=== PATIENT | male | born 1955 | race Caucasian/White ===

== ENCOUNTER 2021-12-30 07:28 | Day surgery (SDC) | payer OTHER ==
[2021-12-29 09:08] LABS: Hematocrit 22.8 % (39.6-49.0)
[2021-12-29 09:49] LABS: Ferritin 9.6 ng/mL (26-388)
[2021-12-30] MEDS ORDERED: ACETAMINOPHEN 325 MG TABLET ONE (08:02)
[2021-12-30] MEDS ORDERED: NA CHLORIDE 0.9% 500 ML ONE (08:25)
[2021-12-30 09:00] VITALS: TEMP 98.1; BMI 21.8
[2021-12-30] MEDS ORDERED: FUROSEMIDE 40 MG/4 ML VIAL ONE (10:17)
[2021-12-30 14:33] VITALS: BP 171/85; O2SAT 97
[2021-12-30 14:54] LABS: Hematocrit 27.6 % (39.6-49.0)
== END 2021-12-30 14:23 | disposition home or self-care (01) ==
LOC: DS 07:28
PROVIDERS: ATTEND Family Medicine
DX: D50.9 Iron deficiency anemia, unspecified (principal); Z88.6 Allergy status to analgesic agent
CPT/HCPCS: 36415 ×2; 86900; 86850; 86901; 85018 ×2; 85014 ×2; 82728; 82607; 83540; 84466; 36430; J1940; P9016 ×2; J7050

== ENCOUNTER 2022-11-30 21:10 | Inpatient (IN) | payer OTHER ==
--- OUTSIDE RECORDS SUMMARY | 2022-11-30 21:15 | XMS REPORT | Continuity of Care Document ---
:1955 Author Organization [facility] t Address [address] [place] [address] Care Team Providers Name Role Phone Adeel Samaniego MD Primary Care Physician ANNA VILLANUEVA Attending Clinician Unavailable LAB90 Attending Clinician Unavailable Anna Villanueva DO Attending Clinician MD DEIDRE Attending Clinician Unavailable PADMINI ROMAN MEDICAL Attending Clinician Unavailabl e Radiology Attending Clinician Unavailable RADIOLOGY Attending Clinician Unavailable Payers Payer Name Policy Type Policy Number Effective Date Expiration Date S garrick [employer] 16 [id number] 2021 00:00:00 HMO-POS Problems Condition Condition Condition Status Onset Resolution Last Treating Co mments Source Name Details Category Date Date Treatment Clinician Date 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 Se ybold mirza blue 00:00: - malnutriti malnutriti 00 Ex terna on on l 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 3-22 Se ybold 00:00: - 00 Externa l Gastroesop Gastroesop Disease Active Carmen cadet hageal hageal 3-16 Seybold reflux reflux 00:00: - disease disease 00 Externa without without l esophagiti esophagiti s s Well adult Well adult Disease Active Carmen cadet exam exam 3-14 Seybold 00:00: 00 History of History of Disease Active Carmen cadet CVA CVA 3-14 Seybold (cerebrova (cerebrova 00:00: - scular scular 00 Externa accident) accident) l Edema, Edema, Disease Active Padmini lower lower 3-14 Seybold extremity extremity 00:00: - 00 Externa l Simple Simple Disease Active Padmini chronic chronic 3-14 Seybold bronchitis bronchitis 00:00: - 00 Externa l Hypertensi Hypertensi Disease Active K elsey on on -20 Seybold 00:00: - 00 Externa l Hypothyroi Hypothyroi Disease Active K elsey dism dism 1-20 Seybold 00:00: - 00 Externa l Depression Depression Disease Active K elsey 1-20 Seybold 00:00: - 00 Externa l Iron (Fe) Iron (Fe) Disease Active Lb sey deficiency deficiency 5-19 Se ybold anemia anemia 00:00: - 00 Externa l Allergies, Adverse Reactions, Alerts Allergy Allergy Status Severity Reaction(s) Onset Inactive Treating Comm ents Source Name Type Date Date Clinician Codeine Propensi Active Anxiety Padmini ty to 5-19 Seybold adverse 00:00: - reaction 00 Externa s l Codeine Propensi Active Anxiety Padmini ty to 5-19 Seybold adverse 00:00: reaction 00 s NO KNOWN Drug Active Univers ALLERGIE Class ity [facility] Social History Social Habit Start Date Stop Date Quantity Comments Source Exposure to Not sure [facility]-CoV-2 [facility] (event) [facility] History of Cigarette Smoker Padmini emmanuelbomatt - tobacco use External Sex Ass[birth year] At [birth year] M Padmini Sharif ybold - 00:00:00 00:00:00 External Smoking Status Start Date Stop Date Source Unknown if ever smoked [facility] Smokes tobacco daily 2021-03-02 00:00:00 Padmini Naveed - External Medications Ordered Filled Start Stop Current Ordering Indication Dosage Frequency Signature Comments Components Source Medication Medication Date Date Medication? Clinician (SIG) Name Name Allopurinol 2022- No 300mg Take 300 Padmini 300 MG oral 2-15 02-15 mg by Seybol d Tablet 15:34: 00:00 mouth - 17 :00 daily Externa l ASPIRIN 81 2023-0 Yes 81mg Take 81 mg K elsey OR 2-15 by mouth Seybold 15:21: daily - 31 Externa l Fluticasone 0 Yes [id number] 1{puff} Inhale 1 Padmini -Salmeterol 2-15 puff into Miles phelps (Advair 00:00: the lungs - Diskus) 00 2 times Externa 250-50 daily l MCG/ACT inhalation AEROSOL POWDER, BREATH ACTIVATED Diltiazem Yes [id number] TAKE 1 Ke lsey HCl Coated 2-06 CAPSULE BY Sey bold Beads 360 00:00: MOUTH - MG oral 00 EVERY DAY Externa Capsule 24 l Hour Sustained Release Famotidine 2021-10- No [id number] TAKE 1 Padmini (PEPCID) 20 2-09 02-15 TABLET BY Se ybold MG oral 00:00: 00:00 MOUTH - tablet 00 :00 EVERY Externa MORNING l AND 1 TABLET BY MOUTH EVERY EVENING Levothyroxi 2021-0 Yes [id number] 50ug TAKE 1 Padmini ne Sodium 9-09 TABLET (50 Seyb old 50 MCG oral 00:00: MCG TOTAL) - Tablet 00 BY MOUTH Externa IN THE l MORNING. Sertraline Yes [id number] 50mg TAKE 1 K elsey HCl 50 MG 9-09 TABLET (50 Seyb old oral Tablet 00:00: MG TOTAL) - 00 BY MOUTH Externa IN THE l MORNING. Lisinopril 0 Yes [id number] 20mg TAKE 1 K elsey 20 MG oral 9-09 TABLET (20 Sey bold Tablet 00:00: MG TOTAL) - 00 BY MOUTH Externa IN THE l MORNING. Clopidogrel 0 Yes 75mg TAKE 1 Jovita ey Bisulfate 9-09 TABLET (75 Seyb old 75 MG oral 00:00: MG TOTAL) - Tablet 00 BY MOUTH Externa IN THE l MORNING. Esomeprazol 0 Yes [id number] TAKE 1 Padmini e Magnesium 8-03 CAPSULE BY Se ybold 20 MG oral 00:00: MOUTH - Delayed 00 EVERY DAY Externa Release l Capsule Furosemide 0 2022- No [id number] 20mg QD TAKE 1 Padmini 20 MG oral 708 02-15 TABLET (20 Se ybold Tablet 00:00: 00:00 MG TOTAL) - 00 :00 BY MOUTH Externa DAILY l NEEDED (EDEMA TO THE LOWER EXTREMITIE S) Allopurinol Yes 300mg Take 300 K elsey 300 MG oral 5-23 mg by Seybold Tablet 08:13: mouth 22 daily ASPIRIN 81 0 Yes 81mg Take 81 mg K elsey OR 5-23 by mouth Seybold 08:13: daily 22 Furosemide Yes [id number] 20mg QD TAKE 1 Padmini 20 MG oral 5-16 TABLET (20 Sey bold Tablet 00:00: MG TOTAL) 00 BY MOUTH DAILY NEEDED (EDEMA TO THE LOWER EXTREMITIE S) Famotidine 2021- No Padmini (PEPCID) 20 5-15 05-23 Seybold MG oral 00:00: 00:00 tablet 00 :00 Diltiazem Yes [id number] 360mg Take 1 K elsey HCl Coated 5-04 capsule Seybol d Beads 360 00:00: (360 mg MG oral 00 total) by Capsule 24 mouth Hour daily Sustained Release Allopurinol Yes 300mg Take 300 K elsey 300 MG oral 4-25 mg by Seybold Tablet 08:14: mouth 30 daily ASPIRIN 81 Yes 81mg Take 81 mg K elsey OR 4-25 by mouth Seybold 08:14: daily 30 Esomeprazol Yes [id number] 1{each} Take 1 Padmini e Magnesium 4-25 each by Seybo ld (NexIUM 00:00: mouth 24HR) 20 MG 00 daily oral Tablet Delayed Response Esomeprazol Yes [id number] 1{each} Take 1 Padmini e Magnesium 4-25 each by Seybo ld (NexIUM 00:00: mouth 24HR) 20 MG 00 daily oral Tablet Delayed Response Esomeprazol 2021-0 2021- No [id number] 1{each} Take 1 Padmini e Magnesium 4-25 04-25 each by Seyb old (NexIUM 00:00: 00:00 mouth 24HR) 20 MG 00 :00 daily oral Tablet Delayed Response Iron, Yes [id number] 1{each} Take 1 Ke lsey Ferrous 3-16 each by Seybold Sulfate, 00:00: mouth 2 325 (65 Fe) 00 times MG oral daily Tablet Iron, Yes [id number] 1{each} Take 1 Ke lsey Ferrous 3-16 each by Seybold Sulfate, 00:00: mouth 2 325 (65 Fe) 00 times MG oral daily Tablet Iron, 2022- No [id number] 1{each} Take 1 K elsey Ferrous 3-16 02-15 each by Seybold Sulfate, 00:00: 00:00 mouth 2 - 325 (65 Fe) 00 :00 times Externa MG oral daily l Tablet Famotidine 2021- No [id number] 20mg Take 1 Padmini (Pepcid) 20 3-16 04-25 tablet (20 S eybold MG oral 00:00: 00:00 mg total) tablet 00 :00 by mouth in the morning and 1 tablet (20 mg total) in the evening. Allopurinol Yes 300mg Take 300 K elsey 300 MG oral 3-14 mg by Seybold Tablet 08:15: mouth 14 daily ASPIRIN 81 0 Yes 81mg Take 81 mg K elsey OR 3-14 by mouth Seybold 08:15: daily 14 Lisinopril 0 Yes [id number] 20mg Take 1 K elsey 20 MG oral 3-14 tablet (20 Sey bold Tablet 00:00: mg total) 00 by mouth in the morning. Levothyroxi Yes [id number] 50ug Take 1 Padmini ne Sodium 3-14 tablet (50 Seyb old 50 MCG oral 00:00: mcg total) Tablet 00 by mouth in the morning. Clopidogrel Yes 75mg Take 1 Jovita ey Bisulfate 3-14 tablet (75 Seyb old 75 MG oral 00:00: mg total) Tablet 00 by mouth in the morning. Sertraline 0 Yes [id number] 50mg Take 1 K elsey HCl 50 MG 3-14 tablet (50 Seyb old oral Tablet 00:00: mg total) 00 by mouth in the morning. Fluticasone Yes [id number] 1{puff} Inhale 1 Padmini -Salmeterol 3-14 puff into Sey bold (Advair 00:00: the lungs Diskus) 00 in the 250-50 morning MCG/DOSE and 1 puff inhalation in the AEROSOL evening. POWDER, BREATH ACTIVATED Lisinopril 2022-0 Yes [id number] 20mg Take 1 K elsey 20 MG oral 3-14 tablet (20 Sey bold Tablet 00:00: mg total) 00 by mouth in the morning. Levothyroxi 2022-0 Yes [id number] 50ug Take 1 Padmini ne Sodium 3-14 tablet (50 Seyb old 50 MCG oral 00:00: mcg total) Tablet 00 by mouth in the morning. Clopidogrel 2-0 Yes 75mg Take 1 Jovita ey Bisulfate 3-14 tablet (75 Seyb old 75 MG oral 00:00: mg total) Tablet 00 by mouth in the morning. Sertraline 2021-0 Yes [id number] 50mg Take 1 K elsey HCl 50 MG 3-14 tablet (50 Seyb old oral Tablet 00:00: mg total) 00 by mouth in the morning. Furosemide 2021-0 Yes [id number] 20mg QD Take 1 Padmini 20 MG oral 3-14 tablet (20 Sey bold Tablet 00:00: mg total) 00 by mouth daily as needed (edema to the lower extremitie s) Fluticasone 2021-0 Yes 1{puff} Inhale 1 Padmini -Salmeterol 3-14 puff into Sey bold (Advair 00:00: the lungs Diskus) 00 in the 250-50 morning MCG/DOSE and 1 puff inhalation in the AEROSOL evening. POWDER, BREATH ACTIVATED Lisinopril 2021-0 Yes [id number] 20mg Take 1 K elsey 20 MG oral 3-14 tablet (20 Sey bold Tablet 00:00: mg total) 00 by mouth in the morning. Levothyroxi 2022-0 Yes [id number] 50ug Take 1 Padmini ne Sodium 3-14 tablet (50 Seyb old 50 MCG oral 00:00: mcg total) Tablet 00 by mouth in the morning. Clopidogrel 2022-0 Yes 75mg Take 1 Jovita ey Bisulfate 3-14 tablet (75 Seyb old 75 MG oral 00:00: mg total) Tablet 00 by mouth in the morning. Sertraline 2022-0 Yes [id number] 50mg Take 1 K elsey HCl 50 MG 3-14 tablet (50 Seyb old oral Tablet 00:00: mg total) 00 by mouth in the morning. Furosemide 2022-0 Yes [id number] 20mg QD Take 1 Padmini 20 MG oral 3-14 tablet (20 Sey bold Tablet 00:00: mg total) 00 by mouth daily as needed (edema to the lower extremitie s) Fluticasone Yes [id number] 1{puff} Inhale 1 Padmini -Salmeterol 3-14 puff into Sey bold (Advair 00:00: the lungs Diskus) 00 in the 250-50 morning MCG/DOSE and 1 puff inhalation in the AEROSOL evening. POWDER, BREATH ACTIVATED Fluticasone 2022- No [id number] 1{puff} Inhale 1 Padmini -Salmeterol 3-14 02-15 puff into Se ybold (Advair 00:00: 00:00 the lungs - Diskus) 00 :00 in the Externa 250-50 morning l MCG/DOSE and 1 puff inhalation in the AEROSOL evening. POWDER, BREATH ACTIVATED Lisinopril 2021- No [id number] 20mg Take 1 Padmini 20 MG oral 1-20 -14 tablet (20 Se ybold Tablet 00:00: 00:00 mg total) 00 :00 by mouth daily Sertraline 2021- No [id number] 50mg Take 1 Padmini HCl 50 MG -01 01-14 tablet (50 Sey bold oral Tablet 00:00: 00:00 mg total) 00 :00 by mouth daily Levothyroxi 2021- No [id number] 50ug Take 1 Padmini ne Sodium -20 -14 tablet (50 Sey bold 50 MCG oral 00:00: 00:00 mcg total) Tablet 00 :00 by mouth daily Clopidogrel 2020-10- No TAKE ONE K elsey Bisulfate 0-14 TABLET BY Seyb old 75 MG oral 00:00: 00:00 MOUTH Tablet 00 :00 DAILY Diltiazem Yes TAKE TWO Jovita ey HCl CR 180 6-09 CAPSULES Seybo ld MG oral 00:00: BY MOUTH Capsule 24 00 DAILY Hour Sustained Release Diltiazem Yes TAKE TWO Jovita ey HCl CR 180 6-09 CAPSULES Seybo ld MG oral 00:00: BY MOUTH Capsule 24 00 DAILY Hour Sustained Release Budesonide- 2021- No 2{puff} Inhale 2 Padmini Formoterol 03-02 03-14 puffs into Se ybold Fumarate 00:00: 00:00 the lungs (Symbicort) 00 :00 2 times 160-4.5 daily MCG/ACT inhalation Aerosol Cyclobenzap 2021- No 5mg [id number] Take 1 Padmini rine HCl 5 03-02 03-14 [id number] tablet (5 Seybold MG oral 00:00: 00:00 3D mg total) Tablet 00 :00 by mouth 3 times daily as needed for muscle spasms Immunizations Ordered Immunization Filled Immunization Date Status Commen ts Source Name Name Influenza Virus 2019-11-03 Completed Padmini Se ybold Vaccine, age 6 months 00:00:00 and up Influenza Virus 2019-11-03 Completed Padmini Se ybold Vaccine, age 6 months 00:00:00 - E xternal and up Influenza Virus 2019-11-03 Completed Padmini Se ybold Vaccine, age 6 months 00:00:00 and up Influenza Virus 2019-11-03 Completed Padmini Se ybold Vaccine, age 6 months 00:00:00 and up Influenza Virus 2018-08-07 Completed Padmini Se ybold Vaccine, age 6 months 00:00:00 and up Influenza Virus 2018-08-07 Completed Padmini Se ybold Vaccine, age 6 months 00:00:00 - E xternal and up Influenza Virus 2018-08-07 Completed Padmini Se ybold Vaccine, age 6 months 00:00:00 and up Influenza Virus 2018-08-07 Completed Padmini Se ybold Vaccine, age 6 months 00:00:00 and up Influenza Virus 2017-07-10 Completed Padmini Se ybold Vaccine, age 6 months 00:00:00 and up Influenza Virus 2017-07-10 Completed Padmini Se ybold Vaccine, No Preserv, 00:00:00 age 6 months and up Influenza Virus 2017-07-10 Completed Padmini Se ybold Vaccine, age 6 months 00:00:00 - E xternal and up Influenza Virus 2017-07-10 Completed Padmini Se ybold Vaccine, No Preserv, 00:00:00 - Ex ternal age 6 months and up Influenza Virus 2017-07-10 Completed Padmini Se ybold Vaccine, age 6 months 00:00:00 and up Influenza Virus 2017-07-10 Completed Padmini Se ybold Vaccine, No Preserv, 00:00:00 age 6 months and up Influenza Virus 2017-07-10 Completed Padmini Se ybold Vaccine, age 6 months 00:00:00 and up Influenza Virus 2017-07-10 Completed Padmini Se ybold Vaccine, No Preserv, 00:00:00 age 6 months and up Influenza Virus 2016-08-14 Completed Padmini Se ybold Vaccine, age 6 months 00:00:00 and up Pneumococcal Vaccine, 2016-08-14 Completed Lb sey Seybold Polysaccharide 00:00:00 Influenza Virus 2016-08-14 Completed Padmini Se ybold Vaccine, age 6 months 00:00:00 - E xternal and up Pneumococcal Vaccine, 2016-08-14 Completed Lb sey Seybold Polysaccharide 00:00:00 - External Influenza Virus 2016-08-14 Completed Padmini Se ybold Vaccine, age 6 months 00:00:00 and up Pneumococcal Vaccine, 2016-08-14 Completed Lb sey Seybold Polysaccharide 00:00:00 Influenza Virus 2016-08-14 Completed Padmini Se ybold Vaccine, age 6 months 00:00:00 and up Pneumococcal Vaccine, 2016-08-14 Completed Lb sey Seybold Polysaccharide 00:00:00 Vital Signs Vital Name Observation Time Observation Value Comments Source Systolic blood 2022-11-29 21:20:00 112 mm[Hg] Padmini Seybold - pressure External Diastolic blood 2022-11-29 21:20:00 59 mm[Hg] Yoshi y Seybold - pressure External Heart rate 2022-11-29 21:20:00 99 /min Padmini Jose cholobomatt - External Body temperature 2022-11-29 21:20:00 36.56 Nadine Jovita emmanuel Seybold - External Respiratory rate 2022-11-29 21:20:00 14 /min Jovita emmanuel Seybold - External Body height 2022-11-29 21:20:00 198.1 cm Padmini Jose cholobomatt - External Body weight 2022-11-29 21:20:00 71.215 kg Padmini Jose cholobold - External BMI 2022-11-29 21:20:00 18.14 kg/m2 Padmini Jose cholobomatt - External Oxygen saturation in 2022-11-29 21:20:00 99 /min Padmini Seybold - Arterial blood by External Pulse oximetry Systolic blood 2022-03-06 13:08:00 170 mm[Hg] Padmini Seybold pressure Diastolic blood 2022-03-06 13:08:00 76 mm[Hg] Kelse y Seybold pressure Heart rate 2022-03-06 13:08:00 87 /min Padmini S eybold Body temperature 2022-03-06 13:08:00 36.28 Nadine Jovita ey Seybold Respiratory rate 2022-03-06 13:08:00 16 /min Jovita ey Seybold Body height 2022-03-06 13:08:00 198.1 cm Padmini S eybold Body weight 2022-03-06 13:08:00 81.647 kg Padmini S eybold BMI 2022-03-06 13:08:00 20.80 kg/m2 Padmini S eybold Oxygen saturation in 2022-03-06 13:08:00 97 /min Padmini Seybold Arterial blood by Pulse oximetry BMI 2022-02-06 13:11:00 21.41 kg/m2 Padmini S eybold Oxygen saturation in 2022-02-06 13:11:00 99 /min Padmini Seybold Arterial blood by Pulse oximetry Systolic blood 2022-02-06 13:11:00 143 mm[Hg] Padmini Seybold pressure Diastolic blood 2022-02-06 13:11:00 68 mm[Hg] Kelse y Seybold pressure Heart rate 2022-02-06 13:11:00 90 /min Padmini S eybold Body temperature 2022-02-06 13:11:00 36.44 Nadine Jovita ey Seybold Respiratory rate 2022-02-06 13:11:00 16 /min Jovita ey Seybold Body height 2022-02-06 13:11:00 198.1 cm Padmini S eybold Body weight 2022-02-06 13:11:00 84.052 kg Padmini S eybold Systolic blood 2021-12-26 13:07:00 148 mm[Hg] Padmini Seybold pressure Diastolic blood 2021-12-26 13:07:00 62 mm[Hg] Kelse y Seybold pressure Heart rate 2021-12-26 13:07:00 91 /min Padmini jessica Body temperature 2021-12-26 13:07:00 35.56 Nadine Jovita Lucio Respiratory rate 2021-12-26 13:07:00 14 /min Jovita Lucio Body height 2021-12-26 13:07:00 198.1 cm Padmini jessica Body weight 2021-12-26 13:07:00 84.823 kg Padmini jessica BMI 2021-12-26 13:07:00 21.61 kg/m2 Padmini jessica Procedures This patient has no known procedures. Encounters Start End Encounter Admission Attending Care Care Encounter Source Date/Time Date/Time Type Type Clinicians Facility Department ID 2022-12-15 2022-12-15 Outpatient PADMINI VILLANUEVA [id number] Padmini 13:45:00 13:45:00 ANNA Seybol d 2022-11-29 2022-11-29 Outpatient LAB90 PADMINI LUQUE [id number] Padmini 15:50:00 15:50:00 Seybol d 2022-11-29 2022-11-29 Outpatient PADMINI VILLANUEVA [id number] Padmini 15:15:00 15:15:00 ANNA Seybol d 2022-11-29 2022-11-29 Outpatient PADMINI LUQUE [id number] Padmini 00:00:00 00:00:00 Seybol d 2022-11-21 2022-11-21 Outpatient PADMINI VILLANUEVA [id number] Padmini 16:00:00 16:00:00 ANNA Seybol d 2022-11-17 2022-11-17 Outpatient PADMINI VILLANUEVA [id number] Padmini 00:00:00 00:00:00 ANNA Seybol d 2022-09-22 2022-09-22 Outpatient PADMINI VILLANUEVA [id number] Padmini 00:00:00 00:00:00 ANNA Seybol d 2022-03-06 2022-03-06 Outpatient LAB90 PADMINI LUQUE [id number] Padmini 08:50:00 08:50:00 Seybol d 2022-03-06 2022-03-06 Office Nehemiah Villanueva [id number] Padmini 08:00:00 08:15:00 Visit Anna Dietz [id number] Se ybold [id number] 2022-02-15 2022-02-15 Outpatient PREZAS, PADMINI LUQUE [id number] Padmini 00:00:00 00:00:00 ANNA Seybol d 2022-02-07 2022-02-07 Outpatient PREZAS, PADMINI LUQUE [id number] Padmini 00:00:00 00:00:00 ANNA Seybol d 2022-02-06 2022-02-06 Outpatient LAB90 PADMINI LUQUE [id number] Padmini 08:45:00 08:45:00 Seybol d 2022-02-06 2022-02-06 Office Nehemiah Villanueva [id number] Padmini 08:00:00 08:15:00 Visit Anna Dietz [id number] Se ybold [id number] 2022-01-26 2022-01-26 Outpatient PREZAS, PADMINI LUQUE [id number] Padmini 00:00:00 00:00:00 ANNA Seybol d 2022-01-23 2022-01-23 Outpatient PREZAS, PADMINI LUQUE [id number] Padmini 08:00:00 08:00:00 ANNA Seybol d 2022-01-11 2022-01-11 Outpatient LAB90 PADMINI LUQUE [id number] Padmini 08:15:00 08:15:00 Seybol d 2022-01-09 2022-01-09 Outpatient LAB90 PADMINI LUQUE [id number] Padmini 08:20:00 08:20:00 Seybol d 2021-12-28 2021-12-28 Outpatient PREZAPADMINI Garcia [id number] Padmini 13:30:00 13:30:00 ANNA Seybol d 2021-12-28 2021-12-28 Outpatient PREZAPADMINI Garcia [id number] Padmini 00:00:00 00:00:00 ANNA Seybol d 2021-12-28 2021-12-28 Outpatient PADMINI LUQUE [id number] Padmini 00:00:00 00:00:00 Seybol d 2021-12-28 2021-12-28 Outpatient PADMINI LUQUE [id number] Padmini 00:00:00 00:00:00 Seybol d 2021-12-28 2021-12-[id number] Padmini 00:00:00 00:00:00 MD JOSÉ Seybol d 2021-12-28 2021-12-28 Outpatient PREZAJose, PADMINI LUQUE [id number] Padmini 00:00:00 00:00:00 ANNA Seybol d 2021-12-27 2021-12-27 Outpatient PREZAPADMINI Garcia [id number] Padmini 00:00:00 00:00:00 ANNA Seybol d 2021-12-27 2021-12-27 Outpatient PREZAPADMINI Garcia [id number] Padmini 00:00:00 00:00:00 ANNA Seybol d 2021-12-26 2021-12-26 Outpatient LAB90 PADMINI LUQUE [id number] Padmini 09:30:00 09:30:00 Seybol d 2021-12-26 2021-12-26 Office Nehemiah Villanueva [id number] Padmini 08:30:00 09:15:00 [id number] [facility] [id number] 2021-12-26 2021-12-26 Outpatient PADMINI LUQUE [id number] Padmini 00:00:00 00:00:00 Seybol d 2021-11-01 2021-11-01 Outpatient GROUP, PADMINI LUQUE [id number] Padmini 00:00:00 00:00:00 PADMINI Seybol d 2021-03-21 2021-03-21 [facility] Radiology [facility] [id number] Univers 15:35:00 23:59:00 James Mccord [id number] itKirsten [id number] [facility] [id number] [facility] [address] 2021-03-21 2021-03-21 Outpatient R RADIOLOGY [facility] [id number] [facility] 00:00:00 00:00:00 ity [facility] Results This patient has no known results.
[2022-11-30] MEDS ORDERED: ONDANSETRON 4 MG/2 ML VIAL IV PRN (21:25)
[2022-11-30] MEDS ORDERED: ACETAMINOPHEN 325 MG TABLET PO PRN (21:25)
[2022-11-30] MEDS ORDERED: NA CHLORIDE 0.9% 250 ML IV SCH (22:00)
[2022-11-30 22:25] LABS: SARS-COV-2 RT PCR NEGATIVE (NEGATIVE)
--- NOTE | 2022-11-30 22:35 | P.HP ---
Certification for Inpatient Patient admitted to: Observation With expected LOS: <2 Midnights Patient will require the following post-hospital care: None Practitioner: I am a practitioner with admitting privileges, knowledge of patient current condition, hospital course, and medical plan of care. Services: Services provided to patient in accordance with Admission requirements found in Title 42 Section 412.3 of the Code of Federal Regulations Patient History Date of Service: 11/30/22 Reason for admission: Anemia History of Present Illness: 67-year-old male with history of previous CVA, hypertension, hypothyroidism, anemia was referred here by his PCP after having outpatient labs which demonstrated a low hemoglobin of 6.1. Patient is pending further work-up with GI, had EGD about a year ago which patient reports to have shown just "reflux", he has never had a colonoscopy and is being setup to have repeat EGD/colonoscopy outpatient with his PCP/GI. He denies any melena currently. He was sent in for a blood transfusion. Allergies codeine Adverse Reaction (Verified 12/30/21 09:10) Itching Home Medications: Aspirin [Aspirin EC 81 MG] 1 tab PO DAILY 12/30/21 Clopidogrel Bisulfate [Plavix] 75 mg PO DAILY 12/30/21 Esomeprazole Mag Trihydrate [Nexium] 20 mg PO DAILY 12/30/21 Fluticasone Propion/Salmeterol [Wixela 250-50 Inhub] 2 puff IH DAILY PRN MDD 4 12/30/21 Furosemide [Lasix] 20 mg PO DAILY 12/30/21 Levothyroxine Sodium [Levothyroxine] 50 mcg PO DAILY 12/30/21 Lisinopril [Zestril] 20 mg PO BID 12/30/21 Sertraline HCl 50 mg PO DAILY 12/30/21 - Past Medical/Surgical History -: CVA -: Hypertension -: GERD -: Appendectomy -: Back surgery Psychosocial/ Personal History: Patient lives at home with family - Family History Mother -: Heart disease, Liver disease Father -: Cancer - Social History Smoking Status: Current every day smoker Alcohol use: No CD- Drugs: No Caffeine use: Yes Place of Residence: Home Review of Systems 10-point ROS is otherwise unremarkable General: Weakness, Malaise Physical Examination - Physical Exam General: Alert, In no apparent distress, Oriented x3 HEENT: Atraumatic, PERRLA, Mucous membr. moist/pink, EOMI, Sclerae nonicteric Neck: Supple, 2+ carotid pulse no bruit, No LAD, Without JVD or thyroid abnormality Respiratory: Clear to auscultation bilaterally, Normal air movement Cardiovascular: Regular rate/rhythm, Normal S1 S2 Gastrointestinal: Normal bowel sounds, No tenderness Musculoskeletal: No tenderness Integumentary: No rashes Neurological: Normal speech, Normal strength at 5/5 x4 extr, Normal tone, Normal affect Assessment and Plan - Plan Assessment: Severe symptomatic iron deficiency anemia History of CVA Hypertension Hypothyroidism Plan: Severe symptomatic iron deficiency anemia Outpatient labs show hemoglobin 6.1, hematocrit 21.0, MCV 72.4, MCH 21.0, MCHC 29.0, RDW 18.4, TIBC 368, serum iron 13, iron saturation 4, ferritin 8. 1 unit PRBC ordered with 2-hour posttransfusion H/H. Patient will require further outpatient work-up with GI for EGD/colonoscopy. This is being arranged with his PCP. History of CVA Hypertension Hypothyroidism Continue home medications. DVT PPX: SCD Code status: Full Discharge Plan: Home Plan to discharge in: 24 Hours - Advance Directives Does patient have a Living Will: No Does patient have a Durable POA for Healthcare: No - Code Status/Comfort Care Code Status Assessed: Yes (Full code) Critical Care: No Time Spent Managing Pts Care (In Minutes): 55
[2022-11-30 22:59] VITALS: BMI 18.3
[2022-12-01 05:34] LABS: Hematocrit 20.4 % (39.6-49.0)
[2022-12-01 06:32] VITALS: O2SAT 97
[2022-12-01 16:03] VITALS: BP 168/77; TEMP 98.3
--- NOTE | 2022-12-01 17:15 | P.DS ---
Admission Date: 11/30/22 Discharge Date: 12/01/22 Disposition: ROUTINE DISCHARGE Discharge Condition: GOOD Reason for Admission: Anemia Brief History of Present Illness: 67-year-old male with history of previous CVA, hypertension, hypothyroidism, anemia was referred here by his PCP after having outpatient labs which demonstrated a low hemoglobin of 6.1. Patient is pending further work-up with GI, had EGD about a year ago which patient reports to have shown just "reflux", he has never had a colonoscopy and is being setup to have repeat EGD/colonoscopy outpatient with his PCP/GI. He denies any melena currently. He was sent in for a blood transfusion. Hospital Course: Problem List Severe iron deficiency anemia History of CVA Hypertension Hypothyroidism Direct admission for blood transfusion for symptomatic, severe iron deficiency anemia. Hemoglobin at PCPs office was 6.1 earlier this week with iron satu: 4, serum iron: 13. Patient received 2 units of PRBCs with improvement of symptoms and hgb up to 7.3. He was given a dose of IV iron and discharged home. He is scheduled to follow up with GI this week for EGD/C-scope. Follow up with PCP Continue iron supplementation for consideration of scheduled IV iron transfusions as an outpatient if needed Patient's PCP, Dr. Talavera was updated. Vital Signs/Physical Exam: Temp Pulse Resp BP Pulse Ox 98.3 F 66 16 168/77 H 99 12/01/22 16:00 12/01/22 16:00 12/01/22 16:00 12/01/22 16:00 12/01/22 16:00 General: Alert, In no apparent distress, Oriented x3 HEENT: EOMI, Sclerae nonicteric Neck: Supple, No LAD Respiratory: Clear to auscultation bilaterally, Normal air movement Cardiovascular: No edema, Regular rate/rhythm Gastrointestinal: Soft and benign, Non-distended, No tenderness Musculoskeletal: No contractures, No tenderness Integumentary: No rashes, No significant lesion Neurological: Normal speech, Normal affect Laboratory Data at Discharge: Hgb 7.3 g/dL (13.6-17.9) L D 12/01/22 11:52 Hct 23.0 % (39.6-49.0) L 12/01/22 11:52 Home Medications: Aspirin [Aspirin EC 81 MG] 1 tab PO DAILY 12/30/21 Clopidogrel Bisulfate [Plavix] 75 mg PO DAILY 12/30/21 Esomeprazole Mag Trihydrate [Nexium] 20 mg PO DAILY 12/30/21 Fluticasone Propion/Salmeterol [Wixela 250-50 Inhub] 2 puff IH DAILY PRN MDD 4 12/30/21 Furosemide [Lasix] 20 mg PO DAILY 12/30/21 Levothyroxine Sodium [Levothyroxine] 50 mcg PO DAILY 12/30/21 Lisinopril [Zestril] 20 mg PO BID 12/30/21 Sertraline HCl 50 mg PO DAILY 12/30/21 Physician Discharge Instructions: Direct admission for blood transfusion for symptomatic, severe iron deficiency anemia. Hemoglobin at PCPs office was 6.1 earlier this week with iron satu: 4, serum iron: 13. Patient received 2 units of PRBCs with improvement of symptoms and hgb up to 7.3. He was given a dose of IV iron and discharged home. He is scheduled to follow up with GI this week for EGD/C-scope. Follow up with PCP Continue iron supplementation for consideration of scheduled IV iron transfusions as an outpatient if needed Patient's PCP, Dr. Talavera was updated. Time spent managing pt's care (in minutes): 45
[2022-12-02] MEDS ORDERED: SOD FERRIC GLUC COMPLX/SUCROSE 125 MG in NA CHLORIDE 0.9% 100 ML IV ONE (13:12)
== END 2022-12-01 16:56 | disposition home or self-care (01) | DRG 812 ==
LOC: 2ND 21:10 → OBSVTOIN 21:10 → INTOOBSV 21:10
PROVIDERS: ADMIT Hospitalist; ATTEND Hospitalist
PROC: 30233N1 Transfusion of Nonautologous Red Blood Cells into Peripheral Vein, Percutaneous Approach (ICD-10-PCS; principal; 2022-11-30)
DX: D50.9 Iron deficiency anemia, unspecified (principal); I10 Essential (primary) hypertension; E03.9 Hypothyroidism, unspecified; K21.9 Gastro-esophageal reflux disease without esophagitis; F17.200 Nicotine dependence, unspecified, uncomplicated; Z88.5 Allergy status to narcotic agent; Z79.82 Long term (current) use of aspirin; Z90.49 Acquired absence of other specified parts of digestive tract; Z79.02 Long term (current) use of antithrombotics/antiplatelets; Z86.73 Personal history of transient ischemic attack (TIA), and cerebral infarction without residual deficits; Z79.899 Other long term (current) drug therapy; Z79.890 Hormone replacement therapy; Z20.822 Contact with and (suspected) exposure to COVID-19
CPT/HCPCS: 0240U; 36415; 85014; 85018; 86850; 86900; 86901; J7050; P9016

== ENCOUNTER 2022-12-19 07:39 | Day surgery (SDC) | payer OTHER ==
[2022-12-19] MEDS ORDERED: NA CHLORIDE 0.9% 250 ML ONE ×2 (08:09→11:06)
[2022-12-19 08:36] VITALS: TEMP 97.7; O2SAT 98; BMI 18.1
[2022-12-19] MEDS ORDERED: FUROSEMIDE 40 MG/4 ML VIAL ONE (15:07)
[2022-12-19 15:08] VITALS: BP 155/68
== END 2022-12-19 16:00 | disposition home or self-care (01) ==
LOC: DS 07:39
PROVIDERS: ATTEND Internal Medicine Gastroenterology
DX: D64.9 Anemia, unspecified (principal)
CPT/HCPCS: 36415 ×2; 86900; 86850; 86901; 85018 ×2; 85014; 36430; J1940; P9016 ×2; J7050 ×2

== ENCOUNTER 2023-03-02 19:25 | Emergency (ER) | payer OTHER ==
[2023-03-02 20:06] LABS: Absolute Lymphocytes (CBC) 1.8 K/uL (0.7-4.9); Hematocrit 25.4 % (39.6-49.0); Lymphocytes % 26.4 % (15.3-44.8); MCV 78.8 fL (80-100); RBC Red Blood Cell Count 3.22 M/uL (4.33-5.43)
[2023-03-02 20:08] LABS: Protime INR 0.91
[2023-03-02] MEDS ORDERED: ALBUTEROL 2.5 MG/3 ML NEB SOL ONE (20:27)
--- OUTSIDE RECORDS SUMMARY | 2023-03-02 20:30 | XMS REPORT | Continuity of Care Document ---
:1955 Author Organization [facility] Address [address] [place] [address] [address] [place] [address] Care Team Providers Name Role Phone Adeel Hollis MD Primary Care Physician BRYAN KIM Attending Clinician Unavailable ANNA TALAVERA Attending Clinician Unavailable STEPHY HI Attending Clinician Unavailable LAB39 Attending Clinician Unavailable LAB47 Attending Clinician Unavailable PROVIDER, AFFILIATE Attending Clinician Unavailable ADEEL HOLLIS Attending Clinician Unavailable ANJELICA BETTS Attending Clinician Unavailable CON OSPINA Attending Clinician Unavailable JULIAN HARO Attending Clinician Unavailable BRYAN KIM Attending Clinician Unavailable Bryan Kim Attending Clinician 39, HOLTER Attending Clinician Unavailable IVELISSE BRAXTON Attending Clinician Unavailable MD DEIDRE Attending Clinician Unavailable LAB90 Attending Clinician Unavailable NICKY FLOWER Attending Clinician Unavailable Anna Talavera DO Attending Clinician PADMINI [facility] Attending Clinician Unavailrhianna johnson Radiology Attending Clinician Unavailable RADIOLOGY Attending Clinician Unavailable BRYAN KIM Admitting Clinician Unavailable Bryan Kim Admitting Clinician Payers Payer Name Policy Type Policy Number Effective Date Expiration Date Jose mccauley [employer] 16 [id number] 2021 00:00:00 HMO-POS Problems Condition Condition Condition Status Onset Resolution Last Treating Co mments Source Name Details Category Date Date Treatment Clinician Date C20 C20 Diagnosis Active 2023-02-28 Mem oria MALIGNANT MALIGNANT 4 22:01:00 l NEOPLASM NEOPLASM 00:00: Abdifatah isaacs OF RECTUM OF RECTUM 00 Active 01/17/2023 [facility] 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 2-16 Se ybold to to 00:00: - conditions conditions 00 Ex terna classified classified l elsewhere elsewhere 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 Se ybold mirza mirza 00:00: - malnutriti malnutriti 00 Ex terna on on l ILEOSTOMY ILEOSTOMY Diagnosis Active 2023-02-21 Memoria Active 10-15 11:53:00 l 10/15/2022 08:00: Abdifatah isaacs Aimee 00 Rehab Mild major Mild major Disease Active Carmen [...] bronchitis bronchitis 00:00: - 00 Externa l Hypothyroi Hypothyroi Disease Active Carmen cadet dism dism 1-20 Seybold 00:00: - 00 Externa l Depression Depression Disease Active Carmen cadet 1-20 Seybold 00:00: - 00 Externa l Iron (Fe) Iron (Fe) Disease Active Lb cardoza deficiency deficiency 5-19 Se ybold anemia anemia 00:00: - 00 Externa l Malignant Malignant Problem Active 2023-02-26 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:11: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 Harpreet (disorder) (disorder) Active Problem 02/26/2023 [facility] ILLNESS, ILLNESS, Diagnosis Active 2023-02-28 Memoria UNSPECIFIE UNSPECIFIE 22:01:00 l D D Active [facility] Hypertensi Hypertens Problem Active 2023-02-26 Memoria ve nettie 01:11:21 l disorder, disorder, Herm ciera systemic systemic arterial arterial (disorder) (disorder) Active Problem 02/26/2023 [facility] Allergies, Adverse Reactions, Alerts Allergy Allergy Status Severity Reaction(s) Onset Inactive Treating Comm ents Source Name Type Date Date Clinician Codeine Propensi Active Other Padmini ty to 3-18 reaction( Seybold adverse 00:00: s): - reaction 00 Itching Externa s l Codeine Propensi Active Anxiety Padmini ty to 5-19 Seybold adverse 00:00: - reaction 00 Externa s l Codeine Propensi Active Anxiety Padmini ty to 5-19 Seybold adverse 00:00: reaction 00 s NO KNOWN Drug Active [facility] Active Memoria esther Mullins Social History Social Habit Start Date Stop Date Quantity Comments Source Gender identity 2022-11-03 Identifies as male Carmen cadet Seybold - 09:15:43 gender (finding) External Sexual orientation 2022-11-03 Heterosexual Jovita emmanuel Seybold - 09:15:43 (finding) External Exposure to Not sure [facility] SARS-CoV-2 (event) [facility] History of tobacco Cigarette Smoker Padmini Lucio - use External Tobacco use and 2022-12-29 2022-12-29 Smokeless tobacco Ke clayton Nguyenold - exposure 00:00:00 00:00:00 non-user External History of Social 2022-12-29 2022-12-29 Padmini Lucio - function 00:00:00 00:00:00 External Sex [birth year] M Padmini cornejo - 00:00:00 00:00:00 External Smoking Status Start Date Stop Date Source Unknown if ever smoked [facility] Tobacco smoking status 2023-02-09 21:04:03 Truman Mullins Medications Ordered Filled Start Stop Current Ordering Indication Dosage Frequency Signature Comments Components Source Medication Medication Date Date Medication? Clinician (SIG) Name Name levothyroxi Yes 75 Memori a ne 75 mcg 4-28 microgram l (0.075 mg) 20:44: = 1 tab, Her luciano oral tablet 00 PO, Daily, # 30 tab, 0 Refill(s) levothyroxi 0 Yes 75 Memori a ne 75 mcg 4-28 microgram l (0.075 mg) 20:44: = 1 tab, Her luciano oral tablet 00 PO, Daily, # 30 tab, 0 Refill(s) sertraline 2022-0 Yes 50 mg = 1 Me moria 50 mg oral 4-27 tab, PO, l tablet 22:41: Daily, # Harpreet 00 30 tab, 0 Refill(s) simethicone 2022-0 Yes 20 mg = Mem oria 40 mg/0.6 4-27 0.3 ml, l mL oral 22:41: PO, Q6H, Abdifatah n liquid 00 PRN gas pain, # 15 ml, 0 Refill(s) sertraline 2022-0 Yes 50 mg = 1 Me moria 50 mg oral 4-27 tab, PO, l tablet 22:41: Daily, # Harpreet 00 30 tab, 0 Refill(s) simethicone 2022-0 Yes 20 mg = Mem oria 40 mg/0.6 4-27 0.3 ml, l mL oral 22:41: PO, Q6H, Abdifatah n liquid 00 PRN gas pain, # 15 ml, 0 Refill(s) lisinopril 2022-0 Yes 20 mg = 1 Me moria 20 mg oral 4-27 tab, PO, l tablet 22:37: Daily, # Harpreet 00 30 tab, 0 Refill(s) lisinopril 3-0 Yes 20 mg = 1 Me moria 20 mg oral 4-27 tab, PO, l tablet 22:37: Daily, # [place] 00 30 tab, 0 Refill(s) esomeprazol 3-0 Yes 20 mg, PO, Memoria e 4-27 Daily, 0 l 22:36: Refill(s) [place] 00 fluticasone 2022-0 Yes 1 puff, Mem oria -salmeterol 4-27 INHALATION l 250 mcg-50 22:36: , BID, # Her luciano mcg MDI 00 28 ea, 0 Refill(s) folic acid 2022-0 Yes 1 mg = 1 Mem oria 1 mg oral 4-27 tab, PO, l tablet 22:36: Daily, # [place] 30 tab, 0 Refill(s) esomeprazol 0 Yes 20 mg, PO, Memoria e 4-27 Daily, 0 l 22:36: Refill(s) fluticasone 2022-0 Yes 1 puff, Mem oria -salmeterol 4-27 INHALATION l 250 mcg-50 22:36: , BID, # luciano mcg MDI 00 28 ea, 0 Refill(s) folic acid 2022-0 Yes 1 mg = 1 Mem oria 1 mg oral 4-27 tab, PO, l tablet 22:36: Daily, # 30 tab, 0 Refill(s) diltiazem 2022-0 Yes 360 mg = 1 Me moria 360 mg/24 4-27 cap, PO, l hours oral 22:35: Daily, # Her luciano capsule, 00 30 cap, 0 extended Refill(s) release diltiazem 2022-0 Yes 360 mg = 1 Me moria 360 mg/24 4-27 cap, PO, l hours oral 22:35: Daily, # Her luciano capsule, 00 30 cap, 0 extended Refill(s) release clopidogrel 2022-0 Yes 75 mg = 1 M emoria 75 mg oral 4-27 tab, PO, l tablet 22:34: Daily, # Harpreet 00 30 tab, 0 Refill(s) Vitamin B12 2022-0 Yes 1,000 Memor ia 4-27 microgram, l 22:34: PO, Daily, 00 0 Refill(s) clopidogrel 2022-0 Yes 75 mg = 1 M emoria 75 mg oral 4-27 tab, PO, l tablet 22:34: Daily, # Harpreet 00 30 tab, 0 Refill(s) Vitamin B12 2022-0 Yes 1,000 Memor ia 4-27 microgram, l 22:34: PO, Daily, [place] 00 0 Refill(s) aspirin 2022-0 Yes 81 mg, PO, Cade marlon 4-27 Daily, 0 l 22:33: Refill(s) [place] 00 aspirin Yes 81 mg, PO, Cade marlon 4-27 Daily, 0 l 22:33: Refill(s) [place] 00 ASPIRIN 81 Yes 81mg Take 81 mg K elsey OR 4-18 by mouth Seybold 15:16: daily - 46 Externa l Levothyroxi Yes [id number] 75ug Take 1 Padmini ne Sodium 4-13 tablet (75 Seyb old 75 MCG oral 00:00: mcg total) - Tablet 00 by mouth Externa daily l Folic Acid Yes [id number] TAKE 1 Padmini 1 MG oral 4-12 TABLET BY Seybo ld tablet 00:00: MOUTH - 00 EVERY DAY Externa l Metronidazo Yes [id number] Take 1 tab Padmini le (Flagyl) 3-23 po at 1pm, Se ybold 500 MG oral 00:00: 2pm, and - Tablet 00 10pm day Externa before l surgery Neomycin Yes [id number] Take 2 Ke lsey Sulfate 500 3-23 tabs po at Se ybold MG oral 00:00: 1pm, 2pm, - Tablet 00 and 10pm Externa day before l surgery Na Yes [id number] Use as Padmini Sulfate-K 3-23 directed Seybol d Sulfate-Mg 00:00: prior to - Sulf 00 surgery Externa (SUPREP l BOWEL PREP KIT) 17.5-3.13-1 .6 GM/177ML oral Solution Ferrous Yes [id number] 325mg Take 1 Ke lsey Sulfate 325 3-21 tablet Seybol d (65 Fe) MG 00:00: (325 mg - oral Tablet 00 total) by Ext matt mouth l every other day with vitamin C or orange juice Cyanocobala 2022- Yes [id number] 1000{tb Take 1,000 Padmini min 1000 3-21 04-21 l} tablets by Seyb old MCG oral 00:00: 04:59 mouth - Tablet 00 :00 daily Externa l ASPIRIN 81 Yes 81mg Take 81 mg K elsey OR 3-17 by mouth Seybold 12:41: daily - 17 Externa l Simethicone 0 Yes [id number] 40mg Q.25D Take 0.6 Padmini 40 MG/0.6ML 3-17 mL (40 mg Sey bold oral Liquid 00:00: total) by - 00 mouth 4 Externa times l daily as needed Simethicone 0 2022- No [id number] 40mg Q.25D Take 0.6 Padmini 40 MG/0.6ML 3-17 04-18 mL (40 mg Se ybold oral Liquid 00:00: 00:00 total) by - 00 :00 mouth 4 Externa times l daily as needed Sertraline 0 Yes [id number] 50mg TAKE 1 K elsey HCl 50 MG 3-13 TABLET (50 Seyb old oral Tablet 00:00: MG TOTAL) - 00 BY MOUTH Externa IN THE l MORNING. Levothyroxi 0 Yes [id number] 50ug TAKE 1 Padmini ne Sodium 3-13 TABLET (50 Seyb old 50 MCG oral 00:00: MCG TOTAL) - Tablet 00 BY MOUTH Externa IN THE l MORNING. Lisinopril Yes [id number] 20mg TAKE 1 K elsey 20 MG oral 3-13 TABLET (20 Sey bold Tablet 00:00: MG TOTAL) - 00 BY MOUTH Externa IN THE l MORNING. Sertraline Yes [id number] 50mg TAKE 1 K elsey HCl 50 MG 3-13 TABLET (50 Seyb old oral Tablet 00:00: MG TOTAL) - 00 BY MOUTH Externa IN THE l MORNING. Lisinopril 0 Yes [id number] 20mg TAKE 1 K elsey 20 MG oral 3-13 TABLET (20 Sey bold Tablet 00:00: MG TOTAL) - 00 BY MOUTH Externa IN THE l MORNING. Allopurinol 0 2022- No 300mg Take 300 Padmini 300 MG oral 2-15 02-15 mg by Seybol d Tablet 15:34: 00:00 mouth - 17 :00 daily Externa l ASPIRIN 81 2022-0 Yes 81mg Take 81 mg K elsey OR 2-15 by mouth Seybold 15:21: daily - 31 Externa l Fluticasone 2022-0 Yes [id number] 1{puff} Inhale 1 Padmini -Salmeterol 2-15 puff into Sey bold (Advair 00:00: the lungs - Diskus) 00 2 times Externa 250-50 daily l MCG/ACT inhalation AEROSOL POWDER, BREATH ACTIVATED Fluticasone 2022-0 Yes [id number] 1{puff} Inhale 1 Pamdini -Salmeterol 2-15 puff into Sey bold (Advair 00:00: the lungs - Diskus) 00 2 times Externa 250-50 daily l MCG/ACT inhalation AEROSOL POWDER, BREATH ACTIVATED Fluticasone 2022-0 Yes [id number] 1{puff} Inhale 1 Padmini -Salmeterol 2-15 puff into Sey bold (Advair 00:00: the lungs - Diskus) 00 2 times Externa 250-50 daily l MCG/ACT inhalation AEROSOL POWDER, BREATH ACTIVATED Diltiazem 2022-0 Yes [id number] TAKE 1 Ke lsey HCl Coated 2-06 CAPSULE BY [employer] 360 00:00: MOUTH - MG oral 00 EVERY DAY Externa Capsule 24 l Hour Sustained Release Diltiazem 2022-0 Yes [id number] TAKE 1 Ke lsey HCl Coated 2-06 CAPSULE BY [employer] 360 00:00: MOUTH - MG oral 00 EVERY DAY Externa Capsule 24 l Hour Sustained Release Diltiazem 2022-0 Yes [id number] TAKE 1 Ke lsey HCl Coated 2-06 CAPSULE BY [employer] 360 00:00: MOUTH - MG oral 00 EVERY DAY Externa Capsule 24 l Hour Sustained Release Famotidine 2021-10- No [id number] TAKE 1 Padmini (PEPCID) 20 2-09 02-15 TABLET BY Se ybold MG oral 00:00: 00:00 MOUTH - tablet 00 :00 EVERY Externa MORNING l AND 1 TABLET BY MOUTH EVERY EVENING Levothyroxi 2021-0 Yes [id number] 50ug TAKE 1 Padmini ne Sodium 9-09 TABLET (50 Seyb old 50 MCG oral 00:00: MCG TOTAL) - Tablet 00 BY MOUTH Externa IN THE l MORNING. Sertraline 2021-0 Yes [id number] 50mg TAKE 1 K elsey HCl 50 MG 9-09 TABLET (50 Seyb old oral Tablet 00:00: MG TOTAL) - 00 BY MOUTH Externa IN THE l MORNING. Lisinopril 2021-0 Yes [id number] 20mg TAKE 1 K elsey 20 MG oral 9-09 TABLET (20 Sey bold Tablet 00:00: MG TOTAL) - 00 BY MOUTH Externa IN THE l MORNING. Clopidogrel 2021-0 Yes 75mg TAKE 1 Jovita ey Bisulfate 9-09 TABLET (75 Seyb old 75 MG oral 00:00: MG TOTAL) - Tablet 00 BY MOUTH Externa IN THE l MORNING. Clopidogrel 2021-0 Yes 75mg TAKE 1 Jovita ey Bisulfate 9-09 TABLET (75 Seyb old 75 MG oral 00:00: MG TOTAL) - Tablet 00 BY MOUTH Externa IN THE l MORNING. Clopidogrel 2021-0 2022- No 75mg TAKE 1 Lb sey Bisulfate 9-09 04-18 TABLET (75 Sey bold 75 MG oral 00:00: 00:00 MG TOTAL) - Tablet 00 :00 BY MOUTH Externa IN THE l MORNING. Esomeprazol 2021-0 Yes [id number] TAKE 1 Padmini e Magnesium 8-03 CAPSULE BY Se ybold 20 MG oral 00:00: MOUTH - Delayed 00 EVERY DAY Externa Release l Capsule Esomeprazol 2021-0 Yes [id number] TAKE 1 Padmini e Magnesium 8-03 CAPSULE BY Se ybold 20 MG oral 00:00: MOUTH - Delayed 00 EVERY DAY Externa Release l Capsule Esomeprazol 2021-0 Yes [id number] TAKE 1 Padmini e Magnesium 8-03 CAPSULE BY Se ybold 20 MG oral 00:00: MOUTH - Delayed 00 EVERY DAY Externa Release l Capsule Furosemide 2021-0 2023- No [id number] 20mg QD TAKE 1 Padmini 20 MG oral 08 02-15 TABLET (20 Se ybold Tablet 00:00: 00:00 MG TOTAL) - 00 :00 BY MOUTH Externa DAILY l NEEDED (EDEMA TO THE LOWER EXTREMITIE S) Allopurinol 2021-0 Yes 300mg Take 300 K elsey 300 MG oral 5-23 mg by Seybold Tablet 08:13: mouth 22 daily ASPIRIN 81 2021-0 Yes 81mg Take 81 mg K elsey OR 5-23 by mouth Seybold 08:13: daily 22 Furosemide 2021-0 Yes [id number] 20mg QD TAKE 1 Padmini 20 MG oral 5-16 TABLET (20 Sey bold Tablet 00:00: MG TOTAL) 00 BY MOUTH DAILY NEEDED (EDEMA TO THE LOWER EXTREMITIE S) Famotidine 2021- No Padmini (PEPCID) 20 5-15 05-23 Seybold MG oral 00:00: 00:00 tablet 00 :00 Diltiazem Yes [id number] 360mg Take 1 K elsey HCl Coated [...] mouth Seybold 08:14: daily 30 Esomeprazol Yes [id number] 1{each} Take 1 Padmini e Magnesium 4-25 each by Seybo ld (NexIUM 00:00: mouth 24HR) 20 MG 00 daily oral Tablet Delayed Response Esomeprazol Yes [id number] 1{each} Take 1 Padmini e Magnesium 4-25 each by Seybo ld (NexIUM 00:00: mouth 24HR) 20 MG 00 daily oral Tablet Delayed Response Esomeprazol 2021- No [id number] 1{each} Take 1 Padmini e Magnesium 4-25 04-25 each by Seyb old (NexIUM 00:00: 00:00 mouth 24HR) 20 MG 00 :00 daily oral Tablet Delayed Response Iron, Yes [id number] 1{each} Take 1 Ke lsey Ferrous 3-16 each by Seybold Sulfate, 00:00: mouth 2 325 (65 Fe) 00 times MG oral daily Tablet Iron, Yes [id number] 1{each} Take 1 Ke lsey Ferrous 3-16 each by Seybold Sulfate, 00:00: mouth 2 325 (65 Fe) 00 times MG oral daily Tablet Iron, 2022- No [id number] 1{each} Take 1 K elsey Ferrous 3-16 02-15 each by Seybold Sulfate, 00:00: 00:00 mouth 2 - 325 (65 Fe) 00 :00 times Externa MG oral daily l Tablet Famotidine 2021- No [id number] 20mg Take 1 Padmini (Pepcid) 20 3-16 04-25 tablet (20 S eybold MG oral 00:00: 00:00 mg total) tablet 00 :00 by mouth in the morning and 1 tablet (20 mg total) in the evening. Allopurinol 2021-0 Yes 300mg Take 300 K elsey 300 MG oral 3-14 mg by Seybold Tablet 08:15: mouth 14 daily ASPIRIN 81 2021-0 Yes 81mg Take 81 mg K elsey OR 3-14 by mouth Seybold 08:15: daily 14 Lisinopril 2021-0 Yes [id number] 20mg Take 1 K elsey 20 MG oral 3-14 tablet (20 Sey bold Tablet 00:00: mg total) 00 by mouth in the morning. Levothyroxi 2021-0 Yes [id number] 50ug Take 1 Padmini ne Sodium 3-14 tablet (50 Seyb old 50 MCG oral 00:00: mcg total) Tablet 00 by mouth in the morning. Clopidogrel 2021-0 Yes 75mg Take 1 Jovita ey Bisulfate 3-14 tablet (75 Seyb old 75 MG oral 00:00: mg total) Tablet 00 by mouth in the morning. Sertraline 2021-0 Yes [id number] 50mg Take 1 K elsey HCl 50 MG 3-14 tablet (50 Seyb old oral Tablet 00:00: mg total) 00 by mouth in the morning. Fluticasone 2021-0 Yes [id number] 1{puff} Inhale 1 Padmini -Salmeterol 3-14 puff into Sey bold (Advair 00:00: the lungs Diskus) 00 in the 250-50 morning MCG/DOSE and 1 puff inhalation in the AEROSOL evening. POWDER, BREATH ACTIVATED Lisinopril 2021-0 Yes [id number] 20mg Take 1 K elsey 20 MG oral 3-14 tablet (20 Sey bold Tablet 00:00: mg total) 00 by mouth in the morning. Levothyroxi 202-0 Yes [id number] 50ug Take 1 Padmini ne Sodium 3-14 tablet (50 Seyb old 50 MCG oral 00:00: mcg total) Tablet 00 by mouth in the morning. Clopidogrel 2022-0 Yes 75mg Take 1 Jovita ey Bisulfate 3-14 tablet (75 Seyb old 75 MG oral 00:00: mg total) Tablet 00 by mouth in the morning. Sertraline 2022-0 Yes [id number] 50mg Take 1 K elsey HCl 50 MG 3-14 tablet (50 Seyb old oral Tablet 00:00: mg total) 00 by mouth in the morning. Furosemide 2022-0 Yes [id number] 20mg QD Take 1 Padmini 20 MG oral 3-14 tablet (20 Sey bold Tablet 00:00: mg total) 00 by mouth daily as needed (edema to the lower extremitie s) Fluticasone 2022-0 Yes 1{puff} Inhale 1 Padmini -Salmeterol 3-14 puff into Sey bold (Advair 00:00: the lungs Diskus) 00 in the 250-50 morning MCG/DOSE and 1 puff inhalation in the AEROSOL evening. POWDER, BREATH ACTIVATED Lisinopril 2022-0 Yes [id number] 20mg Take 1 K elsey 20 MG oral 3-14 tablet (20 Sey bold Tablet 00:00: mg total) 00 by mouth in the morning. Levothyroxi 2022-0 Yes [id number] 50ug Take 1 Padmini ne Sodium 3-14 tablet (50 Seyb old 50 MCG oral 00:00: mcg total) Tablet 00 by mouth in the morning. Clopidogrel 2022-0 Yes 75mg Take 1 Jovita ey Bisulfate 3-14 tablet (75 Seyb old 75 MG oral 00:00: mg total) Tablet 00 by mouth in the morning. Sertraline 2022-0 Yes [id number] 50mg Take 1 K elsey HCl 50 MG 3-14 tablet (50 Seyb old oral Tablet 00:00: mg total) 00 by mouth in the morning. Furosemide 2022-0 Yes [id number] 20mg QD Take 1 Padmini 20 MG oral 3-14 tablet (20 Sey bold Tablet 00:00: mg total) 00 by mouth daily as needed (edema to the lower extremitie s) Fluticasone 2022-0 Yes [id number] 1{puff} Inhale 1 Padmini -Salmeterol 3-14 puff into Sey bold (Advair 00:00: the lungs Diskus) 00 in the 250-50 morning MCG/DOSE and 1 puff inhalation in the AEROSOL evening. POWDER, BREATH ACTIVATED Fluticasone 2021-0 2023- No [id number] 1{puff} Inhale 1 Padmini -Salmeterol 3-14 02-15 puff into Se ybold (Advair 00:00: 00:00 the lungs - Diskus) 00 :00 in the Externa 250-50 morning l MCG/DOSE and 1 puff inhalation in the AEROSOL evening. POWDER, BREATH ACTIVATED Lisinopril No [id number] 20mg Take 1 Padmini 20 MG oral 11-03- tablet (20 Se ybold Tablet 00:00: 00:00 mg total) 00 :00 by mouth daily Sertraline 2021- No [id number] 50mg Take 1 Padmini HCl 50 MG 11-03 tablet (50 Sey bold oral Tablet 00:00: 00:00 mg total) 00 :00 by mouth daily Levothyroxi 2021- No [id number] 50ug Take 1 Padmini ne Sodium 11-03 tablet (50 Sey bold 50 MCG oral 00:00: 00:00 mcg total) Tablet 00 :00 by mouth daily Clopidogrel 2020-10- No TAKE ONE K elsey Bisulfate 14 TABLET BY Seyb old 75 MG oral [...] 2021- No 2{puff} Inhale 2 Padmini Formoterol -19 -14 puffs into Se ybold Fumarate 00:00: 00:00 the lungs (Symbicort) 00 :00 2 times 160-4.5 daily MCG/ACT inhalation Aerosol Cyclobenzap 2021- No 5mg [id number] Take 1 Padmini rine HCl 5 5-19 -14 [id number] tablet (5 Seybold MG oral 00:00: 00:00 [...] 00:00:00 and up Influenza Virus 2018-08-07 Completed Padimni Se ybold Vaccine, age 6 months 00:00:00 [...] Time Observation Value Comments Source Systolic blood 2023-01-30 20:15:00 142 mm[Hg] Padmini Seybold - pressure External Diastolic blood 2023-01-30 20:15:00 52 mm[Hg] Kelse y Seybold - pressure External Heart rate 2023-01-30 20:15:00 87 /min Padmini S eybold - External Body temperature 2023-01-30 20:15:00 36.67 Nadine Jovita ey Seybold - External Respiratory rate 2023-01-30 20:15:00 17 /min Jovita ey Seybold - External Body height 2023-01-30 20:15:00 198.1 cm Padmini S eybold - External Body weight 2023-01-30 20:15:00 74.39 kg Padmini S eybold - External BMI 2023-01-30 20:15:00 18.95 kg/m2 Padmini S eybold - External Oxygen saturation in 2023-01-30 20:15:00 92 /min Padmini Seybold - Arterial blood by External Pulse oximetry Systolic blood 2022-12-29 17:40:00 146 mm[Hg] Padmini Seybold - pressure External Diastolic blood 2022-12-29 17:40:00 67 mm[Hg] Lbse y Seybold - pressure External Heart rate 2022-12-29 17:40:00 60 /min Padmini S eybold - External Body temperature 2022-12-29 17:40:00 36.94 Nadine Jovita ey Seybold - External Respiratory rate 2022-12-29 17:40:00 16 /min Jovita ey Seybold - External Body height 2022-12-29 17:40:00 198.1 cm Padmini S eybold - External Body weight 2022-12-29 17:40:00 74.798 kg Padmini S eybold - External BMI 2022-12-29 17:40:00 19.06 kg/m2 Padmini S eybold - External Oxygen saturation in 2022-12-29 17:40:00 100 /min Padmini Seybold - Arterial blood by External Pulse oximetry Systolic blood 2022-11-29 21:20:00 112 mm[Hg] Padmini Seybold - pressure External Diastolic blood 2022-11-29 21:20:00 59 mm[Hg] Kelse y Seybold - pressure External Heart rate 2022-11-29 21:20:00 99 /min Padmini S eybold - External Body temperature 2022-11-29 21:20:00 36.56 Nadine Jovita ey Seybold - External Respiratory rate 2022-11-29 21:20:00 14 /min Jovita ey Seybold - External Body height 2022-11-29 21:20:00 198.1 cm Padmini S eybold - External Body weight 2022-11-29 21:20:00 71.215 kg Padmini S eybold - External BMI 2022-11-29 21:20:00 18.14 kg/m2 Padmini S eybold - External Oxygen saturation in 2022-11-29 21:20:00 [...] Heart rate 2021-12-26 13:07:00 91 /min Padmini S eybold Body temperature 2021-12-26 13:07:00 35.56 Nadine Jovita ey Seybold Respiratory rate 2021-12-26 13:07:00 14 /min Jovita ey Seybold Body height 2021-12-26 13:07:00 198.1 cm Padmini Wells eybold Body weight 2021-12-26 13:07:00 84.823 kg Padmini S eybold BMI 2021-12-26 13:07:00 21.61 kg/m2 Padmini S eybold Heart Rate 2023-02-23 17:33:28 Nikky Mullins Temperature Oral (F) 2023-02-23 17:32:56 97.6 F [facility] [place] Systolic (mm Hg) 2023-02-23 17:32:54 Cade riaesther [place] Diastolic (mm Hg) 2023-02-23 17:32:54 Mem orial [place] Height 2023-02-19 12:25:00 6 [ft_i] [facility] Weight 2023-02-19 12:25:00 [facility] Harpreet BMI Calculated 2023-02-19 12:25:00 Andrewori al [place] Weight 2023-02-09 20:35:00 Nikky Mullins Procedures Procedure Date / Time Performed Performing Clinician [facility] e Back 1982-10-15 00:00:00 [facility] Her luciano Encounters Start End Encounter Admission Attending Care Care Encounter Source Date/Time Date/Time Type Type Clinicians Facility Department ID 2023-05-04 2023-05-04 Outpatient JUDY BRYAN LUQUE [id number] Padmini 09:45:00 09:45:00 Seybol d 2023-04-20 2023-04-20 Outpatient PREZASPADMINI [id number] Padmini 08:30:00 08:30:00 ANNA Seybol d 2023-03-08 2023-03-08 [place] [id number] Padmini 10:20:00 10:20:00 Seybol d 2023-03-07 2023-03-07 Outpatient PREZASPADMINI [id number] Padmini 08:00:00 08:00:00 ANNA Seybol d 2023-03-02 2023-03-02 Outpatient LAB39 PADMINI LUQUE [id number] Padmini 09:00:00 09:00:00 Seybol d 2023-03-02 2023-03-02 Outpatient JUDY, BRYAN LUQUE [id number] Padmini 08:30:00 08:30:00 Seybol d 2023-03-02 2023-03-02 Outpatient PREZASPADMINI [id number] Padmini 00:00:00 00:00:00 ANNA Seybol d 2023-02-28 2023-02-28 Outpatient PREZASPADMINI [id number] Padmini 00:00:00 00:00:00 ANNA Seybol d 2023-02-27 2023-02-27 Outpatient LAB47 PAMDINI LUQUE [id number] Padmini 14:55:00 14:55:00 Seybol d 2023-02-27 2023-02-27 Outpatient JUDY, BRYAN LUQUE [id number] Padmini 14:30:00 14:30:00 Seybol d 2023-02-27 2023-02-27 Outpatient PROVIDERPADMINI [id number] Padmini 00:00:00 00:00:00 AFFILIATE Seyb old 2023-02-26 2023-02-26 Outpatient ADEEL HOLLIS [id number] Padmini 00:00:00 00:00:00 Seybol d 2023-02-26 2023-02-26 Outpatient PADMINI LUQUE [id number] Padmini 00:00:00 00:00:00 Seybol d 2023-02-26 2023-02-26 Outpatient PADMINI LUQUE [id number] Padmini 00:00:00 00:00:00 Seybol d 2023-02-25 2023-02-25 Outpatient PADMINI BETTS [id number] Padmini 00:00:00 00:00:00 ANJELICA Seybol d 2023-02-24 2023-02-24 Outpatient NATHENSHANNONTHOM PADMINI LUQUE [id number] Padmini 00:00:00 00:00:00 CON gutierrez 2023-02-24 2023-02-24 Outpatient PADMINI HARO [id number] Padmini 00:00:00 00:00:00 JULIAN Seybol d 2023-02-24 2023-02-24 Outpatient STEPHY [place] [id number] Padmini 00:00:00 00:00:00 Seybol d 2023-02-19 2023-02-23 [facility] [id number] Memoria 10:59:00 19:00:00 [place] 00 [facility] 2023-02-19 2023-02-23 [facility] [id number] Memoria 10:59:00 19:00:00 Harpreet 00 [facility] 2023-02-19 2023-02-23 Inpatient BRYAN KIM [facility] CIND[facility] [id number] Memoria 05:59:00 14:00:00 [facility] 2023-02-19 2023-02-23 Outpatient Bryan Kim [facility] [id number] 05:59:00 14:00:00 00 2023-02-23 2023-02-23 Outpatient BRYAN KIM [id number] Padmini 00:00:00 00:00:00 Seybol d 2023-02-23 2023-02-23 Outpatient BRYAN KIM [id number] Padmini 00:00:00 00:00:00 Seybol d 2023-02-23 2023-02-23 Outpatient WON, BRYAN LUQUE [id number] Padmini 00:00:00 00:00:00 Seybol d 2023-02-20 2023-02-20 Outpatient PADMINI LUQUE [id number] Padmini 00:00:00 00:00:00 Seybol d 2023-02-19 2023-02-19 Outpatient WON, BRYAN LUQUE [id number] Padmini 08:00:00 08:00:00 Seybol d 2023-02-19 2023-02-19 Outpatient WON, BRYAN LUQUE [id number] Padmini 00:00:00 00:00:00 Seybol d 2023-02-15 2023-02-15 Outpatient 39GEORGE PADMINI LUQUE [id number] Padmini 10:30:00 10:30:00 Seybol d 2023-02-15 2023-02-15 Outpatient PADMINI BRAXTON [id number] Padmini 10:10:00 10:10:00 IVELISSE Seybol d 2023-02-14 2023-02-14 Outpatient PREPADMINI MONSIVAIS [id number] Padmini 00:00:00 00:00:00 ANNA Seybol d 2023-02-02 2023-02-02 Outpatient ROSY LUQUE [id number] Padmini 00:00:00 00:00:00 MD JOSÉ Seybol d 2023-02-01 2023-02-01 Outpatient PREPADMINI MONSIVAIS [id number] Padmini 00:00:00 00:00:00 ANNA Seybol d 2023-02-01 2023-02-01 Outpatient JUDY BRYAN LUQUE [id number] Padmini 00:00:00 00:00:00 Seybol d 2023-01-30 2023-01-30 Outpatient PREPADMINI MONSIVAIS [id number] Padmini 15:15:00 15:15:00 ANNA Seybol d 2023-01-27 2023-01-27 Outpatient PREPADMINI MONSIVAIS [id number] Padmini 00:00:00 00:00:00 ANNA Seybol d 2023-01-26 2023-01-26 [place] [id number] Padmini 10:00:00 10:00:00 Seybol d 2023-01-25 2023-01-25 Outpatient PREPADMINI MONSIVAIS [id number] Padmini 00:00:00 00:00:00 ANNA Seybol d 2023-01-24 2023-01-24 Outpatient LAB90 PADMINI LUQUE [id number] Padmini 08:00:00 08:00:00 Seybol d 2023-01-24 2023-01-24 [place] [id number] Padmini 00:00:00 00:00:00 Seybol d 2023-01-23 2023-01-23 Outpatient PADMINI TALAVERA [id number] Padmini 00:00:00 00:00:00 ANNA Seybol d 2023-01-23 2023-01-23 Outpatient PADMINI TALAVERA [id number] Padmini 00:00:00 00:00:00 ANNA Seybol d 2023-01-23 2023-01-23 Outpatient PREZAPADMINI Wells [id number] Padmini 00:00:00 00:00:00 ANNA Seybol d 2023-01-17 2023-01-17 Outpatient PADMINI LUQUE [id number] Padmini 00:00:00 00:00:00 Seybol d 2023-01-09 2023-01-09 Outpatient BRYAN KIM [id number] Padmini 00:00:00 00:00:00 Seybol d 2023-01-09 2023-01-09 Outpatient ROSY LUQUE [id number] Padmini 00:00:00 00:00:00 MD JOSÉ Seybol d 2023-01-04 2023-01-04 Outpatient BRYAN KIM [id number] Padmini 00:00:00 00:00:00 Seybol d 2023-01-03 2023-01-03 Outpatient PADMINI LUQUE [id number] Padmini 11:00:00 11:00:00 Seybol d 2023-01-02 2023-01-02 Outpatient PADMINI LUQUE [id number] Padmini 09:00:00 09:00:00 Seybol d 2023-01-01 2023-01-01 Outpatient PADMINI LUQUE [id number] Padmini 08:00:00 08:00:00 Seybol d 2022-12-29 2022-12-29 Outpatient STEPHY HI PADMINI LUQUE [id number] Padmini 13:00:00 13:00:00 Seybol d 2022-12-29 2022-12-29 Outpatient LAB39 PADMINI LUQUE [id number] Padmini 10:30:00 10:30:00 Seybol d 2022-12-29 2022-12-29 Outpatient JUDY BRYAN PADMINI LUQUE [id number] Padmini 09:45:00 09:45:00 Seybol d 2022-12-29 2022-12-29 Outpatient MOTPADMINI VALE [id number] Padmini 00:00:00 00:00:00 RASHNO Seybol d 2022-12-27 2022-12-27 Outpatient PADMINI LUQUE [id number] Padmini 00:00:00 00:00:00 Seybol d 2022-12-25 2022-12-25 Outpatient PADMINI TALAVERA [id number] Padmini 00:00:00 00:00:00 ANNA Seybol d 2022-12-21 2022-12-21 Outpatient PREZASPADMINI [id number] Padmini 00:00:00 00:00:00 ANNA Seybol d 2022-12-20 2022-12-20 Outpatient PADMINI LUQUE [id number] Padmini 00:00:00 00:00:00 Seybol d 2022-12-15 2022-12-15 Outpatient PREZASPADMINI [id number] Padmini 13:45:00 13:45:00 ANNA Seybol d 2022-12-04 2022-12-04 Outpatient PADMINI LUQUE [id number] Padmini 00:00:00 00:00:00 Seybol d 2022-12-01 2022-12-01 Outpatient PADMINI TALAVERA [id number] Padmini 00:00:00 00:00:00 ANNA Seybol d 2022-12-01 2022-12-01 Outpatient PADMINI LUQUE [id number] Padmini 00:00:00 00:00:00 Seybol d 2022-12-01 2022-12-01 Outpatient PADMINI LUQUE [id number] Padmini 00:00:00 00:00:00 Seybol d 2022-11-29 2022-11-29 Outpatient LAB90 PADMINI LUQUE [id number] Padmini 15:50:00 15:50:00 Seybol d 2022-11-29 2022-11-29 Outpatient PREZAS, PADMINI LUQUE [id number] Padmini 15:15:00 15:15:00 ANNA Seybol d 2022-11-29 2022-11-29 Outpatient PADMINI LUQUE [id number] Pamdini 00:00:00 00:00:00 Seybol d 2022-11-21 2022-11-21 Outpatient PREZAS, PADMINI LUQUE [id number] Padmini 16:00:00 16:00:00 ANNA Seybol d 2022-11-17 2022-11-17 Outpatient PREZAS, PADMINI LUQUE [id number] Padmini 00:00:00 00:00:00 ANNA Seybol d 2022-09-22 2022-09-22 Outpatient PREZAS, PADMINI LUQUE [id number] Padmini 00:00:00 00:00:00 ANNA Seybol d 2022-03-06 2022-03-06 Outpatient LAB90 PADMINI LUQUE [id number] Padmini 08:50:00 08:50:00 Seybol d 2022-03-06 2022-03-06 Office PrezaNehemiah wells [id number] Padmini 08:00:00 08:15:00 Visit Anna Dietz [id number] Se ybold [id number] 2022-02-15 2022-02-15 Outpatient PREZAS, PADMINI LUQUE [id number] Padmini 00:00:00 00:00:00 ANNA Seybol d 2022-02-07 2022-02-07 Outpatient PREZAS PADMINI LUQUE [id number] Padmini 00:00:00 00:00:00 ANNA Seybol d 2022-02-06 2022-02-06 Outpatient LAB90 PADMINI LUQUE [id number] Padmini 08:45:00 08:45:00 Seybol d 2022-02-06 2022-02-06 Office PrefauziaNehemiah [id number] Padmini 08:00:00 08:15:00 Visit Anna Dietz [id number] Se ybold [id number] 2022-01-26 2022-01-26 Outpatient RICH PADMINI LUQUE [id number] Padmini 00:00:00 00:00:00 ANNA Seybol d 2022-01-23 2022-01-23 Outpatient PADMINI TALAVERA [id number] Padmini 08:00:00 08:00:00 ANNA Seybol d 2022-01-11 2022-01-11 Outpatient LAB90 PADMINI LUQUE [id number] Padmini 08:15:00 08:15:00 Seybol d 2022-01-09 2022-01-09 Outpatient LAB90 PADMINI LUQUE [id number] Padmini 08:20:00 08:20:00 Seybol d 2021-12-28 2021-12-28 Outpatient RICH PADMINI LUQUE [id number] Padmini 13:30:00 13:30:00 ANNA Seybol d 2021-12-28 2021-12-28 Outpatient PREZAPADMINI Wells [id number] Padmini 00:00:00 00:00:00 ANNA Seybol d 2021-12-28 2021-12-28 Outpatient PADMINI LUQUE [id number] Padmini 00:00:00 00:00:00 Seybol d 2021-12-28 2021-12-28 Outpatient PADMINI LUQUE [id number] Padmini 00:00:00 00:00:00 Seybol d 2021-12-28 2021-[facility]-28 [facility] [id number] Padmini 00:00:00 00:00:00 MD JOSÉ Seybol d 2021-12-28 2021-12-28 Outpatient PREANURAGPADMINI Wells [id number] Padmini 00:00:00 00:00:00 ANNA Seybol d 2021-12-27 2021-12-27 Outpatient PREPADMINI MONSIVAIS [id number] Padmini 00:00:00 00:00:00 ANNA Seybol d 2021-12-27 2021-12-27 Outpatient PADMINI TALAVERA [id number] Padmini 00:00:00 00:00:00 ANNA Seybol d 2021-12-26 2021-12-26 Outpatient LAB90 PADMINI LUQUE [id number] Padmini 09:30:00 09:30:00 Seybol d 2021-12-26 2021-12-26 Office Nehemiah Talavera [id number] Padmini 08:30:00 09:15:00 Visit Anna Dietz 350.1.13.13 clemente [id number] 2021-12-26 2021-12-26 Outpatient PADMINI LUQUE [id number] Padmini 00:00:00 00:00:00 Seybol d 2021-11-01 2021-11-01 Outpatient GROUPPADMINI [id number] Padmini 00:00:00 00:00:00 PADMINI Seybol d 2021-03-21 2021-03-21 Hospital Radiology [facility] [id number] [facility] 15:35:00 23:59:00 [id number] [facility] [id number] [facility] [address] 2021-03-21 2021-03-21 Outpatient R RADIOLOGY [facility] [id number] [facility]:00[facility] Test Description Test Time Test Comments Results Result Comments Source CHEMISTRY 2023-02-23 08:55:00 Test Item Value Reference Range Interpretation Comme nts Phosphorus (test code = Phosphorus) 2.4 2.5-4.5 [place] [address]-05-12 08:55:00 Test Item Value Reference Range Interpretation Comments Magnesium Lvl (test code = Magnesium 1.6 1.8-2.4 Lvl) [place] [address]-05-12 08:55:00 Test Item Value Reference Range Interpretation Comments Glucose Lvl (test code = Glucose Lvl) 99 70-99 [place] [address]-05-12 08:55:00 Test Item Value Reference Range Interpretation Comments BUN (test code = BUN) 10 7-22 [place] [address]-05-12 08:55:00 Test Item Value Reference Range Interpretation Comments Creatinine Lvl (test code = Creatinine 0.84 0.50-1.40 Lvl) [place] [address]-05-12 08:55:00 Test Item Value Reference Range Interpretation Comments Sodium Lvl (test code = Sodium Lvl) 137 135-145 [place] [address]-05-12 08:55:00 Test Item Value Reference Range Interpretation Comments Potassium Lvl (test code = Potassium 4.2 3.5-5.1 Lvl) [place] [address]-05-12 08:55:00 Test Item Value Reference Range Interpretation Comments Chloride Lvl (test code = Chloride Lvl) 110 95-109 [place] [address]-05-12 08:55:00 Test Item Value Reference Range Interpretation Comments CO2 (test code = CO2) 23 24-32 [place] [address]-05-12 08:55:00 Test Item Value Reference Range Interpretation Comments Calcium Lvl (test code = Calcium Lvl) 9.2 8.5-10.5 [place] [address]-05-12 08:55:00 Test Item Value Reference Range Interpretation Comments AGAP (test code = AGAP) 8.2 10.0-20.0 [place] [address]-05-12 08:55:00 Test Item Value Reference Range Interpretation Comments eGFR (test code = eGFR) 96 [place] [address]-05-12 08:55:00 Test Item Value Reference Range Interpretation Comments Segs (test code = Segs) 67.5 45.0-75.0 [place] [address]-05-12 08:55:00 Test Item Value Reference Range Interpretation Comments Phosphorus (test code = Phosphorus) 2.4 2.5-4.5 [place] [address]-05-12 08:55:00 Test Item Value Reference Range Interpretation Comments Magnesium Lvl (test code = Magnesium 1.6 1.8-2.4 Lvl) [place] [address]-05-12 08:55:00 Test Item Value Reference Range Interpretation Comments Glucose Lvl (test code = Glucose Lvl) 99 70-99 [place] [address]-05-12 08:55:00 Test Item Value Reference Range Interpretation Comments BUN (test code = BUN) 10 7-22 [place] [address]-05-12 08:55:00 Test Item Value Reference Range Interpretation Comments Creatinine Lvl (test code = Creatinine 0.84 0.50-1.40 Lvl) [place] [address]-05-12 08:55:00 Test Item Value Reference Range Interpretation Comments Sodium Lvl (test code = Sodium Lvl) 137 135-145 [place] [address]-05-12 08:55:00 Test Item Value Reference Range Interpretation Comments Potassium Lvl (test code = Potassium 4.2 3.5-5.1 Lvl) [facility] 08:55:00 Test Item Value Reference Range Interpretation Comments Chloride Lvl (test code = Chloride Lvl) 110 95-109 [place] [address]-05-12 08:55:00 Test Item Value Reference Range Interpretation Comments CO2 (test code = CO2) 23 24-32 [place] [address]-05-12 08:55:00 Test Item Value Reference Range Interpretation Comments Calcium Lvl (test code = Calcium Lvl) 9.2 8.5-10.5 [place] [address]-05-12 08:55:00 Test Item Value Reference Range Interpretation Comments Lymphocytes (test code = Lymphocytes) 14.9 20.0-40.0 [place] [address]-05-12 08:55:00 Test Item Value Reference Range Interpretation Comments AGAP (test code = AGAP) 8.2 10.0-20.0 [place] [address]-05-12 08:55:00 Test Item Value Reference Range Interpretation Comments eGFR (test code = eGFR) 96 [place] [address]-05-12 08:55:00 Test Item Value Reference Range Interpretation Comments Segs (test code = Segs) 67.5 45.0-75.0 [place] [address]-05-12 08:55:00 Test Item Value Reference Range Interpretation Comments Lymphocytes (test code = Lymphocytes) 14.9 20.0-40.0 [place] [address]-05-12 08:55:00 Test Item Value Reference Range Interpretation Comments Monocytes (test code = Monocytes) 12.8 2.0-12.0 [place] [address]-05-12 08:55:00 Test Item Value Reference Range Interpretation Comments Eosinophils (test code = 4.1 See_Comment [A utomated message] The Eosinophils) system which ge nerated this result tra nsmitted reference range : <=4.0. The reference r enrique was not used to int erpret this result as normal/abnormal . [place] [address]-05-12 08:55:00 Test Item Value Reference Range Interpretation Comments Basophils (test code = 0.7 See_Comment [Aut omated message] The Basophils) system which ge nerated this result tra nsmitted reference range : <=1.0. The reference r enrique was not used to int erpret this result as normal/abnormal . [place] [address]-05-12 08:55:00 Test Item Value Reference Range Interpretation Comments Neutrophils # (test code = Neutrophils 3.4 1.5-8.1 #) [place] [address]-05-12 08:55:00 Test Item Value Reference Range Interpretation Comments Lymphocytes # (test code = Lymphocytes 0.8 1.0-5.5 #) [place] [address]-05-12 08:55:00 Test Item Value Reference Range Interpretation Comments Monocytes # (test code 0.6 See_Comment [Aut omated message] The = Monocytes #) system which generated this result tra nsmitted reference range : <=0.8. The reference r enrique was not used to int erpret this result as normal/abnormal . [place] [address]-05-12 08:55:00 Test Item Value Reference Range Interpretation Comments Monocytes (test code = Monocytes) 12.8 2.0-12.0 [place] [address]-05-12 08:55:00 Test Item Value Reference Range Interpretation Comments Eosinophils # (test code 0.2 See_Comment [A utomated message] The = Eosinophils #) system whic h generated this result tra nsmitted reference range : <=0.5. The reference r enrique was not used to int erpret this result as normal/abnormal . [place] [address]-05-12 08:55:00 Test Item Value Reference Range Interpretation Comments WBC (test code = WBC) 5.0 3.7-10.4 [place] [address]-05-12 08:55:00 Test Item Value Reference Range Interpretation Comments RBC (test code = RBC) 2.82 4.70-6.10 [place] [address]-05-12 08:55:00 Test Item Value Reference Range Interpretation Comments Hgb (test code = Hgb) 7.3 14.0-18.0 [place] [address]-05-12 08:55:00 Test Item Value Reference Range Interpretation Comments Hct (test code = Hct) 22.2 42.0-54.0 [place] [address]-05-12 08:55:00 Test Item Value Reference Range Interpretation Comments MCV (test code = MCV) 79.0 80.0-94.0 [place] [address]-05-12 08:55:00 Test Item Value Reference Range Interpretation Comments MCH (test code = MCH) 26.1 pg 27.0-31.0 [place] [address]-05-12 08:55:00 Test Item Value Reference Range Interpretation Comments MCHC (test code = MCHC) 33.0 32.0-36.0 [place] [address]-05-12 08:55:00 Test Item Value Reference Range Interpretation Comments RDW (test code = RDW) 18.6 11.5-14.5 [place] [address]-05-12 08:55:00 Test Item Value Reference Range Interpretation Comments Platelet (test code = Platelet) 191 133-450 [place] [address]-05-12 08:55:00 Test Item Value Reference Range Interpretation Comments Eosinophils (test code = 4.1 See_Comment [A utomated message] The Eosinophils) system which ge nerated this result tra nsmitted reference range : <=4.0. The reference r enrique was not used to int erpret this result as normal/abnormal . [place] [address]-05-12 08:55:00 Test Item Value Reference Range Interpretation Comments MPV (test code = MPV) 8.0 7.4-10.4 [place] [address]-05-12 08:55:00 Test Item Value Reference Range Interpretation Comments Basophils (test code = 0.7 See_Comment [Aut omated message] The Basophils) system which ge nerated this result tra nsmitted reference range : <=1.0. The reference r enrique was not used to int erpret this result as normal/abnormal . [place] [address]-05-12 08:55:00 Test Item Value Reference Range Interpretation Comments Neutrophils # (test code = Neutrophils 3.4 1.5-8.1 #) [place] [address]-05-12 08:55:00 Test Item Value Reference Range Interpretation Comments Lymphocytes # (test code = Lymphocytes 0.8 1.0-5.5 #) [place] [address]-05-12 08:55:00 Test Item Value Reference Range Interpretation Comments Monocytes # (test code 0.6 See_Comment [Aut omated message] The = Monocytes #) system which generated this result tra nsmitted reference range : <=0.8. The reference r enrique was not used to int erpret this result as normal/abnormal . [place] [address]-05-12 08:55:00 Test Item Value Reference Range Interpretation Comments Eosinophils # (test code 0.2 See_Comment [A utomated message] The = Eosinophils #) system whic h generated this result tra nsmitted reference range : <=0.5. The reference r enrique was not used to int erpret this result as normal/abnormal . [place] [address]-05-12 08:55:00 Test Item Value Reference Range Interpretation Comments WBC (test code = WBC) 5.0 3.7-10.4 [place] [address]-05-12 08:55:00 Test Item Value Reference Range Interpretation Comments RBC (test code = RBC) 2.82 4.70-6.10 [place] [address]-05-12 08:55:00 Test Item Value Reference Range Interpretation Comments Hgb (test code = Hgb) 7.3 14.0-18.0 [place] [address]-05-12 08:55:00 Test Item Value Reference Range Interpretation Comments Hct (test code = Hct) 22.2 42.0-54.0 [place] [address]-05-12 08:55:00 Test Item Value Reference Range Interpretation Comments MCV (test code = MCV) 79.0 80.0-94.0 [place] [address]-05-12 08:55:00 Test Item Value Reference Range Interpretation Comments MCH (test code = MCH) 26.1 pg 27.0-31.0 [place] [address]-05-12 08:55:00 Test Item Value Reference Range Interpretation Comments MCHC (test code = MCHC) 33.0 32.0-36.0 [place] [address]-05-12 08:55:00 Test Item Value Reference Range Interpretation Comments RDW (test code = RDW) 18.6 11.5-14.5 [place] [address]-05-12 08:55:00 Test Item Value Reference Range Interpretation Comments Platelet (test code = Platelet) 191 133-450 [place] [address]-05-12 08:55:00 Test Item Value Reference Range Interpretation Comments MPV (test code = MPV) 8.0 7.4-10.4 [place] 75040023-05-08 21:08:36 Test Item Value Reference Range Interpretation Comments RADRPT (test code EXAM: Chest 1view DXDATE: = RADRPT) 02/19/2023 15:38.INDICATION: Crackles - post op.COMPARISON: None available.TECHNIQUE: AP chest.FINDINGS/IMPRESSION:Li abby, Tubes and Hardware: None.Lungs and Pleura: No focal airspace consolidation, pleural effusion, or pneumothorax is evident.Heart and Mediastinum: The cardiomediastinal silhouette is within normal limits. Pulmonary vascularity is within normal limits.Bones: No acute bony abnormality is identified. Moderate soft tissue emphysema is seen along the lateral aspect of the left greater than right chest and upper abdominal davis. [place] 75040023-05-08 21:08:36 Test Item Value Reference Range Interpretation Comments RADRPT (test code EXAM: Chest 1view DXDATE: = RADRPT) 02/19/2023 15:38.INDICATION: Crackles - post op.COMPARISON: None available.TECHNIQUE: AP chest.FINDINGS/IMPRESSION:Li abby, Tubes and Hardware: None.Lungs and Pleura: No focal airspace consolidation, pleural effusion, or pneumothorax is evident.Heart and Mediastinum: The cardiomediastinal silhouette is within normal limits. Pulmonary vascularity is within normal limits.Bones: No acute bony abnormality is identified. Moderate soft tissue emphysema is seen along the lateral aspect of the left greater than right chest and upper abdominal davis. [facility] [id number] 12:15:00 Test Item Value Reference Range Interpretation Comments ABO/Rh (test code = ABO/Rh) A POS [facility] [id number] 12:15:00 Test Item Value Reference Range Interpretation Comments Antibody Scrn (test Negative (02/19/23 7:15 code = Antibody Scrn) AM) [facility] [id number] 12:15:00 Test Item Value Reference Range Interpretation Comments ABO/Rh (test code = ABO/Rh) A POS [facility] [id number] 12:15:00 Test Item Value Reference Range Interpretation Comments Antibody Scrn (test Negative (02/19/23 7:15 code = Antibody Scrn) AM) [facility]2023-05-08 12:06:00 Test Item Value Reference Range Interpretation Comments Glucose POC (test code = Glucose POC) 98 70-99 [facility]2023-05-08 12:06:00 Test Item Value Reference Range Interpretation Comments Glucose POC (test code = Glucose POC) 98 70-99 [facility]BJQXFAI7185[facility]45-97 21:03:00 Test Item Value Reference Range Interpretation Comments Total Protein (test code = Total 6.9 6.4-8.4 Protein) [facility]vvikXYJHLLQTM2606-33-87 21:03:00 Test Item Value Reference Range Interpretation Comments Albumin Lvl (test code = Albumin Lvl) 3.1 3.5-5.0 [facility] HospitalKokyhkoSZFFWXGBS5440-02-65 21:03:00 Test Item Value Reference Range Interpretation Comments ALT (test code = ALT) 15 See_Comment [Auto mated message] The system which ge nerated this result transmit justice reference range : <=65. The reference range was not used to interpr et this result as jabari l/abnormal. [facility] 21:03:00 Test Item Value Reference Range Interpretation Comments AST (test code = AST) 15 See_Comment [Auto mated message] The system which ge nerated this result transmit justice reference range : <=37. The reference range was not used to interpr et this result as jabari l/abnormal. [facility]manQcagjkrABEWUCPIS9088-04-77 21:03:00 Test Item Value Reference Range Interpretation Comments Alk Phos (test code = Alk Phos) 85 39-136 [facility]manWppwwpjRUENXLDNA7526-03-23 21:03:00 Test Item Value Reference Range Interpretation Comments Bili Total (test code = Bili Total) 0.4 0.2-1.3 [facility]ImzycrjHMFJVMSNP4377-67-92 21:03:00 Test Item Value Reference Range Interpretation Comments B/C Ratio (test code = B/C Ratio) 15 1 6-25 [facility]manLxyxjjjZGVAJPDWL8454-73-34 21:03:00 Test Item Value Reference Range Interpretation Comments Globulin (test code = Globulin) 3.8 2.7-4.2 [facility]manWjkemckEAECKKEAW3948-63-87 21:03:00 Test Item Value Reference Range Interpretation Comments A/G Ratio (test code = A/G Ratio) 0.8 1 0.7-1.6 [facility]manXmypbcaSPGMABSQIR4622-65-82 21:03:00 Test Item Value Reference Range Interpretation Comments PT (test code = PT) 12.5 s 12.0-14.7 [facility]manAfejsyyUYBQTOXCMZ6729-26-26 21:03:00 Test Item Value Reference Range Interpretation Comments PTT (test code = PTT) 25.6 s 22.9-35.8 [facility]manTswmmacTEFOHIGIFM4577-70-61 21:03:00 Test Item Value Reference Range Interpretation Comments INR (test code = INR) 0.93 1 0.87-1.13 [facility]manVrmexhiJOWWJRHVHY3331-03-78 21:03:00 Test Item Value Reference Range Interpretation Comments Basophils # (test code 0.1 See_Comment [Aut omated message] The = Basophils #) system which generated this result tra nsmitted reference range : <=0.2. The reference r enrique was not used to int erpret this result as normal/abnormal . [facility]manAasdvsnPPQVEOHPA2374-93-51 21:03:00 Test Item Value Reference Range Interpretation Comments Total Protein (test code = Total 6.9 6.4-8.4 Protein) [facility]manBlnrbnoFGATDCYKC8964-74-59 21:03:00 Test Item Value Reference Range Interpretation Comments Albumin Lvl (test code = Albumin Lvl) 3.1 3.5-5.0 [facility]manEoxwnpfXGZTQNNEX1579-78-03 21:03:00 Test Item Value Reference Range Interpretation Comments ALT (test code = ALT) 15 See_Comment [Auto mated message] The system which ge nerated this result transmit justice reference range : <=65. The reference range was not used to interpr et this result as jabari l/abnormal. [facility] HwhvvslWOAKBWBPH4146-69-47 21:03:00 Test Item Value Reference Range Interpretation Comments AST (test code = AST) 15 See_Comment [Auto mated message] The system which ge nerated this result transmit justice reference range : <=37. The reference range was not used to interpr et this result as jabari l/abnormal. [facility] KhiuwqvJISFPQEVA6683-68-02 21:03:00 Test Item Value Reference Range Interpretation Comments Alk Phos (test code = Alk Phos) 85 39-136 [facility] UdzawqcNUUYCSEZC9512-26-51 21:03:00 Test Item Value Reference Range Interpretation Comments Bili Total (test code = Bili Total) 0.4 0.2-1.3 [facility]manKirrkvkOKCGSWNBN0181-83-02 21:03:00 Test Item Value Reference Range Interpretation Comments B/C Ratio (test code = B/C Ratio) 15 1 6-25 [id number] 21:03:00 Test Item Value Reference Range Interpretation Comments Globulin (test code = Globulin) 3.8 2.7-4.2 [facility] [id number] 21:03:00 Test Item Value Reference Range Interpretation Comments A/G Ratio (test code = A/G Ratio) 0.8 1 0.7-1.6 [id number] 21:03:00 Test Item Value Reference Range Interpretation Comments PT (test code = PT) 12.5 s 12.0-14.7 [id number] 21:03:00 Test Item Value Reference Range Interpretation Comments PTT (test code = PTT) 25.6 s 22.9-35.8 [id number] 21:03:00 Test Item Value Reference Range Interpretation Comments INR (test code = INR) 0.93 1 0.87-1.13 [facility] [id number] 21:03:00 Test Item Value Reference Range Interpretation Comments Basophils # (test code 0.1 See_Comment [Aut omated message] The = Basophils #) system which generated this result tra nsmitted reference range : <=0.2. The reference r enrique was not used to int erpret this result as normal/abnormal . [facility]
[2023-03-02 20:31] LABS: ALT/SGPT 26 U/L (16-61); AST/SGOT 30 U/L (15-37); Alkaline Phosphatase 107 U/L (45-117); BUN Blood Urea Nitrogen 11 mg/dL (7-18); Bicarbonate 19 mEq/L (21-32); Bilirubin Total 0.1 mg/dL (0.2-1.0); Glomerular Filtration Rate 80 ml/min (=/>90); Glucose Level 75 mg/dL (74-106); Magnesium 1.3 mg/dL (1.6-2.4); NT PRO-BNP 3119 pg/mL (<125); Potassium 3.9 mEq/L (3.5-5.1); Sodium Level 126 mEq/L (136-145)
[2023-03-02 20:32] LABS: Bilirubin Direct < 0.1 mg/dL (0-0.2); Bilirubin Indirect, Calculated ND mg/dL (0.2-0.8)
[2023-03-02 20:35] LABS: Troponin High Sensitivity 79.8 pg/mL (<58.9)
--- NOTE | 2023-03-02 21:10 | RAD REPORT ---
EXAM DESCRIPTION: RAD - Chest Single View - 03/02/2023 9:04 pm CLINICAL HISTORY: COUGH Chest pain. COMPARISON: <Comparisons> FINDINGS: Portable technique limits examination quality. The lungs are emphysematous but grossly clear. The heart is normal in size. No displaced fractures.Ol d left posterior fractures. IMPRESSION: No acute intrathoracic process suspected.
--- NOTE | 2023-03-02 21:46 | RAD REPORT ---
EXAM DESCRIPTION: CT - Chest For Pe Angio - 03/02/2023 9:29 pm CLINICAL HISTORY: Chest pain. altered lab results COMPARISON: No comparisons TECHNIQUE: CT angiogram of the pulmonary arteries was performed with MIP. All CT scans are performed using dose optimization technique as appropriate and may include automated exposure control or mA/KV adjustment according to patient size. FINDINGS: No evidence of pulmonary thromboembolism. No acute aortic finding demonstrated. The lungs are clear. No significant pericardial or pleural fluid. No concerning bony finding. IMPRESSION: No evidence of pulmonary thromboembolism. No acute lung findings.
[2023-03-02] MEDS ORDERED: MAGNESIUM SULFATE 1 gm IVPB 1 GM/100 ML BAG IV ONE (22:15)
--- NOTE | 2023-03-02 23:13 | ER ---
Nurse's Notes [facility] Name: Luis Gonzalez Age: 67 yrs Sex: Male : 1955 Arrival Date: 03/02/2023 Time: 19:25 Bed 17 Private MD: Diagnosis: Hypo-osmolality and hyponatremia;Hypomagnesemia Presentation: 03/02 19:39 Chief complaint: Patient states: I got some lab results today and i was told to come to [facility] the ER because my potassium was really high. I feel fine. Coronavirus screen: Vaccine status: Patient reports being unvaccinated. Ebola Screen: No symptoms or risks identified at this time. Initial Sepsis Screen: Does the patient meet any 2 criteria? No. Patient's initial sepsis screen is negative. Does the patient have a suspected source of infection? No. Patient's initial sepsis screen is negative. Risk Assessment: Do you want to hurt yourself or someone else? Patient reports no desire to harm self or others. Onset of symptoms was March 02, 2023. 19:39 Method Of Arrival: Ambulatory [facility] 19:39 Acuity: MIKAL 3 kd3 Triage Assessment: 19:40 General: Appears in no apparent distress. Behavior is calm, cooperative. Pain: Denies kd3 pain. Neuro: Level of Consciousness is awake, alert, obeys commands, Oriented to person, place, time, situation. Respiratory: Airway is patent Trachea midline Respiratory effort is even, unlabored, Respiratory pattern is regular, symmetrical. Historical: - Allergies: 19:40 codeine sulfate; kd3 - Immunization history:: Adult Immunizations up to date. - Social history:: Smoking status: Patient reports the use of cigarette tobacco products, smokes one-half pack cigarettes per day. Screenin:50 Abuse screen: Denies threats or abuse. Denies injuries from another. Nutritional ha1 screening: No deficits noted. Tuberculosis screening: No symptoms or risk factors identified. Assessment: 19:32 General: Appears comfortable, Behavior is calm, cooperative. Pain: Denies pain. Neuro: ha1 Level of Consciousness is awake, alert, obeys commands, Oriented to person, place, time, situation. Cardiovascular: Patient's skin is warm and dry. Respiratory: Airway is patent Respiratory effort is even, unlabored, Respiratory pattern is regular, symmetrical. GI: Reports having surgery of the colon a week ago. Musculoskeletal: Circulation, motion, and sensation intact. 20:30 Reassessment: Patient and/or family updated on plan of care and expected duration. Pain ha1 level reassessed. Patient is alert, oriented x 3, equal unlabored respirations, skin warm/dry/pink. 21:30 Reassessment: Patient and/or family updated on plan of care and expected duration. Pain ha1 level reassessed. Patient is alert, oriented x 3, equal unlabored respirations, skin warm/dry/pink. Patient denies pain at this time. 22:27 Reassessment: Patient and/or family updated on plan of care and expected duration. Pain ha1 level reassessed. Patient is alert, oriented x 3, equal unlabored respirations, skin warm/dry/pink. Patient denies pain at this time. 23:30 Reassessment: Patient and/or family updated on plan of care and expected duration. Pain ha1 level reassessed. Patient is alert, oriented x 3, equal unlabored respirations, skin warm/dry/pink. Patient denies pain at this time. Vital Signs: 19:39 BP 147 / 88; Pulse 71; Resp 18; Temp 97.8; Pulse Ox 100% on R/A; Weight 71.67 kg; kd3 Height 6 ft. 6 in. ; Pain 0/10; 20:00 BP 129 / 79; Pulse 71; Resp 17 S; Pulse Ox 100% on R/A; ha1 21:00 BP 137 / 70; Pulse 71; Resp 17 S; Pulse Ox 100% on R/A; ha1 22:00 BP 142 / 67; Pulse 76; Resp 19 S; Pulse Ox 100% on R/A; ha1 19:39 Body Mass Index 18.26 (71.67 kg, 198.12 cm) kd3 19:39 Pain Scale: Adult kd3 Rowe Coma Score: 23:15 Eye Response: spontaneous(4). Motor Response: obeys commands(6). Verbal Response: snw oriented(5). Total: 15. ED Course: 19:29 Patient arrived in ED. jj6 19:32 Patient has correct armband on for positive identification. Placed in gown. Bed in low ha1 position. Call light in reach. Side rails up X 1. Adult w/ patient. 19:33 Johanna Bennett FNP-C is [facility]. snw 19:33 Tomas Ac MD is Attending Physician. snw 19:40 Triage completed. kd3 19:40 Arm band placed on right wrist. EKG completed in triage. Results shown to MD. kd3 19:44 Katlyn Maldonado, RN is Primary Nurse. ha1 19:50 Inserted saline lock: 22 gauge in right forearm, using aseptic technique. Blood ha1 collected. 19:58 Basic Metabolic Panel Sent. ha1 19:58 CBC with Diff Sent. ha1 19:58 LFT's Sent. ha1 19:58 Magnesium Sent. ha1 19:58 NT PRO-BNP Sent. ha1 19:58 PT-INR Sent. ha1 19:58 Troponin HS Sent. ha1 21:06 XRAY Chest (1 view) In Process Unspecified. EDMS 21:31 CT Chest For PE Angio In Process Unspecified. EDMS 23:50 No provider procedures requiring assistance completed. IV discontinued, intact, ha1 bleeding controlled, No redness/swelling at site. Pressure dressing applied. Administered Medications: 20:05 Drug: Albuterol Inhalation 2.5 mg Route: Inhalation; ha1 20:35 Follow up: Response: No adverse reaction ha1 22:00 Drug: Magnesium Sulfate IVPB 1 grams Route: IVPB; Infused Over: 1 hrs; Site: right ha1 forearm; 23:49 Follow up: Response: No adverse reaction; IV Status: Completed infusion; IV Intake: ha1 100ml Medication: 23:51 VIS not applicable for this client. ha1 Intake: 23:49 IV: 100ml; Total: 100ml. ha1 Outcome: 23:13 Discharge ordered by . snw 23:50 Discharged to home via wheelchair, with family. ha1 23:50 Condition: stable 23:50 Discharge instructions given to patient, family, Instructed on discharge instructions, follow up and referral plans. Demonstrated understanding of instructions, follow-up care. 23:51 Patient left the ED. ha1 Signatures: Dispatcher [employer] EDMS Johanna Bennett FNP-C [employer]ANNY-Csnw Letty Gallagher jj6 Lashanda Kerr RN RN 3 Katlyn Maldonado, KIMBERLI RN ha1 Corrections: (The following items were deleted from the chart) 19:41 19:40 Allergies: No Known Allergies; kd3 kd3
--- NOTE | 2023-03-02 23:13 | EDPHYS ---
Physician Documentation [facility] [place], [place] Name: Luis Gonzalez Age: 67 yrs Sex: Male : 1955 Arrival Date: 03/02/2023 Time: 19:25 Bed 17 Private MD: ED Physician Tomas Ac HPI: 03/02 22:58 This 67 yrs old Male presents to ER via Ambulatory with complaints of Abnormal Lab snw Results. 22:58 Onset: The symptoms/episode began/occurred suddenly. Sent to ED for potassium of 6.0 snw this am.. Historical: - Allergies: 19:40 codeine sulfate; kd3 - Immunization history:: Adult Immunizations up to date. - Social history:: Smoking status: Patient reports the use of cigarette tobacco products, smokes one-half pack cigarettes per day. ROS: 23:37 Constitutional: Negative for fever, chills, and weight loss, Eyes: Negative for injury, snw pain, redness, and discharge, ENT: Negative for injury, pain, and discharge, Neck: Negative for injury, pain, and swelling, Cardiovascular: Negative for chest pain, palpitations, and edema, Respiratory: Negative for shortness of breath, cough, wheezing, and pleuritic chest pain, Abdomen/GI: Negative for abdominal pain, nausea, vomiting, diarrhea, and constipation, Back: Negative for injury and pain, : Negative for injury, bleeding, discharge, and swelling, MS/Extremity: Negative for injury and deformity, Skin: Negative for injury, rash, and discoloration, Neuro: Negative for headache, weakness, numbness, tingling, and seizure, Psych: Negative for depression, anxiety, suicide ideation, homicidal ideation, and hallucinations. Exam: 22:57 Head/Face: Normocephalic, atraumatic. Eyes: Pupils equal round and reactive to light, snw extra-ocular motions intact. Lids and lashes normal. Conjunctiva and sclera are non-icteric and not injected. Cornea within normal limits. Periorbital areas with no swelling, redness, or edema. ENT: Nares patent. No nasal discharge, no septal abnormalities noted. Tympanic membranes are normal and external auditory canals are clear. Oropharynx with no redness, swelling, or masses, exudates, or evidence of obstruction, uvula midline. Mucous membranes moist. Neck: Trachea midline, no thyromegaly or masses palpated, and no cervical lymphadenopathy. Supple, full range of motion without nuchal rigidity, or vertebral point tenderness. No Meningismus. Chest/axilla: Normal chest wall appearance and motion. Nontender with no deformity. No lesions are appreciated. Cardiovascular: Regular rate and rhythm with a normal S1 and S2. No gallops, murmurs, or rubs. Normal PMI, no JVD. No pulse deficits. Respiratory: Lungs have equal breath sounds bilaterally, clear to auscultation and percussion. No rales, rhonchi or wheezes noted. No increased work of breathing, no retractions or nasal flaring. Back: No spinal tenderness. No costovertebral tenderness. Full range of motion. MS/ Extremity: Pulses equal, no cyanosis. Neurovascular intact. Full, normal range of motion. Neuro: Awake and alert, GCS 15, oriented to person, place, time, and situation. Cranial nerves II-XII grossly intact. Motor strength 5/5 in all extremities. Sensory grossly intact. Cerebellar exam normal. Normal gait. Psych: Awake, alert, with orientation to person, place and time. Behavior, mood, and affect are within normal limits. 22:57 Constitutional: The patient appears alert, awake, anxious, pale. 22:57 Abdomen/GI: Bowel sounds: normal, Palpation: nontender, stoma s/p resection for colorectal surgery 2nd to cancer. Vital Signs: 19:39 BP 147 / 88; Pulse 71; Resp 18; Temp 97.8; Pulse Ox 100% on R/A; Weight 71.67 kg; kd3 Height 6 ft. 6 in. ; Pain 0/10; 20:00 BP 129 / 79; Pulse 71; Resp 17 S; Pulse Ox 100% on R/A; ha1 21:00 BP 137 / 70; Pulse 71; Resp 17 S; Pulse Ox 100% on R/A; ha1 22:00 BP 142 / 67; Pulse 76; Resp 19 S; Pulse Ox 100% on R/A; ha1 19:39 Body Mass Index 18.26 (71.67 kg, 198.12 cm) kd3 19:39 Pain Scale: Adult kd3 Dima Coma Score: 23:15 Eye Response: spontaneous(4). Motor Response: obeys commands(6). Verbal Response: snw oriented(5). Total: 15. MDM: 19:33 Patient medically screened. snw 23:07 Differential Diagnosis sepsis, arrhythmia, dehydration. Data reviewed: vital signs, snw nurses notes, diagnostic data from outside facility, Pt's My Chart showed K of 6 from this am, Na 129, . Historians other than the Patient: Spouse/Significant Other: . Counseling: I had a detailed discussion with the patient and/or guardian regarding: the historical points, exam findings, and any diagnostic results supporting the discharge/admit diagnosis, the presence of at least one elevated blood pressure reading (>120/80) during this emergency department visit, lab results, radiology results, the need for outpatient follow up, for definitive care, [facility], pt denies chest pain, feeling poorly, dizziness, arrhythmia. Requests discharge and he will f/u at [facility], encouraged to return to ED immediately prn worsening or chest pain or concerns. Special discussion: I have referred the patient to see his PCP for further evaluation of high blood pressure. Based on the history and exam findings, there is no indication for further emergent testing or inpatient evaluation. I discussed with the patient/guardian the need to see the primary care provider for further evaluation of the symptoms. 03/02 19:37 Order name: Basic Metabolic Panel; Complete Time: 20:38 snw 03/02 19:37 Order name: CBC with Diff; Complete Time: 20:26 snw 03/02 19:37 Order name: LFT's; Complete Time: 20:38 snw 03/02 19:37 Order name: Magnesium; Complete Time: 20:38 snw 03/02 19:37 Order name: NT PRO-BNP; Complete Time: 20:38 snw 03/02 19:37 Order name: PT-INR; Complete Time: 20:26 snw 03/02 19:37 Order name: Troponin HS; Complete Time: 20:38 snw 03/02 19:37 Order name: XRAY Chest (1 view); Complete Time: 21:36 snw 03/02 20:44 Order name: CT Chest For PE Angio; Complete Time: 21:55 snw 03/02 19:37 Order name: EKG; Complete Time: 19:39 snw 03/02 19:37 Order name: Cardiac monitoring; Complete Time: 19:41 snw 03/02 19:37 Order name: EKG - Nurse/Tech; Complete Time: 19:41 snw 03/02 19:37 Order name: IV Saline Lock; Complete Time: 19:58 snw 03/02 19:37 Order name: Labs collected and sent; Complete Time: 19:58 snw 03/02 19:37 Order name: O2 Per Protocol; Complete Time: 19:41 snw 03/02 19:37 Order name: O2 Sat Monitoring; Complete Time: 19:42 snw EC:45 Rate is 71 beats/min. Rhythm is regular. QRS interval is prolonged. T waves are snw Inverted in leads aVL, V3, V4. Clinical impression: NSR w/ Non-specific ST/T Changes. Administered Medications: 20:05 Drug: Albuterol Inhalation 2.5 mg Route: Inhalation; ha1 20:35 Follow up: Response: No adverse reaction ha1 22:00 Drug: Magnesium Sulfate IVPB 1 grams Route: IVPB; Infused Over: 1 hrs; Site: right ha1 forearm; 23:49 Follow up: Response: No adverse reaction; IV Status: Completed infusion; IV Intake: ha1 100ml Disposition Summary: 03/02/23 23:13 Discharge Ordered Location: Home snw Condition: Stable snw Diagnosis - Hypo-osmolality and hyponatremia snw - Hypomagnesemia snw Followup: snw - With: Emergency Department - When: As needed - Reason: Worsening of condition Followup: snw - With: Private Physician - When: 2 - 3 days - Reason: Recheck today's complaints, Continuance of care, Re-evaluation by your physician Discharge Instructions: - Discharge Summary Sheet snw - Hyperkalemia snw - Hypomagnesemia snw - Hyponatremia snw - Hypokalemia snw Forms: - Medication Reconciliation Form snw - Thank You Letter snw - Antibiotic Education snw - Prescription Opioid Use snw Signatures: Dispatcher [employer] Johanna Winters FNP-C ASSISTANT [employer]-Csnw Lashanda Kerr RN RN kd3 Katlyn Maldonado RN RN ha1 Corrections: (The following items were deleted from the chart) 19:41 19:40 Allergies: No Known Allergies; kd3 kd3
[2023-03-03 00:41] VITALS: TEMP 97.8; O2SAT 100
[2023-03-03 00:54] VITALS: BP 142/67
--- NOTE | 2023-03-04 17:35 | EKG ---
Test Date: 2023-03-02 Test Time: 19:43:16 Transportation Analyst: MEASUREMENT RESULTS: Intervals: Rate: 71 NH: 152 QRSD: 154 QT: 504 QTc: 547 [place]: P: NH: 152 QRS: -79 T: 106 INTERPRETIVE STATEMENTS: Normal sinus rhythm Left axis deviation Left ventricular hypertrophy with QRS widening and repolarization abnormality Abnormal ECG Compared to ECG 12/10/1993 02:52:00 Left ventricular hypertrophy now present Early repolarization now present Electronically Signed On 03-04-23 17:33:49 CDT by Sanjeev David
== END 2023-03-02 23:51 | disposition home or self-care (01) ==
LOC: ER 19:25
DX: E87.1 Hypo-osmolality and hyponatremia (principal); E83.42 Hypomagnesemia; F17.210 Nicotine dependence, cigarettes, uncomplicated; Z88.5 Allergy status to narcotic agent
CPT/HCPCS: 93005; 85025; 80048; 36415; 83735; 85610; 80076; 84484; 83880; 71275; 71045; Q9967; J3475; J7613

== ENCOUNTER 2023-04-21 08:58 | Inpatient (IN) | payer OTHER ==
--- OUTSIDE RECORDS SUMMARY | 2023-04-21 09:08 | XMS REPORT | Continuity of Care Document ---
:1955 Author Organization [facility] t Address [address] [facility] [address] [place] [id number] Care Team Providers Name Role Phone Adeel Hollis MD Primary Care Physician FREDDY TALAVERA Attending Clinician Unavailable IVELISSE BRAXTON Attending Clinician Unavailable ARNOLDO KIM Attending Clinician Unavailable STEPHY HI Attending Clinician Unavailable ROSITA LEGGETT Attending Clinician Unavailable LAB90 Attending Clinician Unavailable HUGO, MC Attending Clinician Unavailable KIMMY ADAME Attending Clinician Unavailable PASQUALE ARNOLD Attending Clinician Unavailable MARIANGEL JONES Attending Clinician Unavailable MATHEW PAGAN Attending Clinician Unavailable VALE HOOKER Attending Clinician Unavailable ALIREZA CURRAN Attending Clinician Unavailable BELKIS SINGH Attending Clinician Unavailable LAB39 Attending Clinician Unavailable LAB47 Attending Clinician Unavailable PROVIDER, AFFILIATE Attending Clinician Unavailable ADEEL HOLLIS Attending Clinician Unavailable ANJELICA BETTS Attending Clinician Unavailable CON OSPINA Attending Clinician Unavailable JULIAN HARO Attending Clinician Unavailable ARNOLDO KIM Attending Clinician Unavailable Arnoldo Kim Attending Clinician Elmer, GEORGE Attending Clinician Unavailable MD DEIDRE Attending Clinician Unavailable NICKY FLOWER Attending Clinician Unavailable Freddy Talavera DO Attending Clinician PADMINI ROMAN MEDICAL Attending Clinician Unavailabl e Radiology Attending Clinician Unavailable RADIOLOGY Attending Clinician Unavailable ARNOLDO KIM Admitting Clinician Unavailable Arnoldo Kim Admitting Clinician Payers Payer Name Policy Type Policy Number Effective Date Expiration Date Jose SAHA 16 [id number] 2021 00:00:00 HMO-POS Problems Condition Condition Condition Status Onset Resolution Last Treating Co mments Source Name Details Category Date Date Treatment Clinician Date Primary Primary Disease Active Padmini insomnia insomnia 04-20 Seybol d 00:00: - 00 Externa l Ileostomy Ileostomy Disease Active Lb sey in place in place 04-20 Seybol d 00:00: - 00 Externa l History of History of Disease Active Overview : Padmini rectal rectal 04-20 Formattin Seybold surgery surgery 00:00: g of this note Externa might be l different from the original. 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 [...] 00 History of History of Disease Active K elsey CVA CVA 3-14 Seybold (cerebrova (cerebrova 00:00: - scular scular 00 Externa accident) accident) l Edema, Edema, Disease Active Padmini lower lower 3-14 Seybold extremity extremity 00:00: - 00 Externa l Simple Simple Disease Active Padmini chronic chronic 3-14 Seybold bronchitis bronchitis 00:00: - 00 Externa l Hypothyroi Hypothyroi Disease Active K helio dism dism 1-20 Seybold 00:00: - 00 Externa l Depression Depression Disease Active K elsey 1-20 Seybold 00:00: - 00 Externa l Iron (Fe) Iron (Fe) Disease Active Lb sey deficiency deficiency 5-19 Se ybold anemia anemia 00:00: - 00 Externa l Hypertensi Problem Active 2023-02-26 M emoria ve Hypertensi 01:11:21 l disorder, ve Harpreet systemic disorder, arterial systemic (disorder) arterial (disorder) Active Problem 02/26/2023 [facility] Malignant Malignant Problem Active 2023-02-26 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:11: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 Harpreet (disorder) (disorder) Active Problem 02/26/2023 [facility] ILLNESS, ILLNESS, Diagnosis Active 2023-02-28 Memoria UNSPECIFIE UNSPECIFIE 22:01:00 l D D Active [facility] [place], [place] Allergies, Adverse Reactions, Alerts Allergy Allergy Status [...] KNOWN Drug Active Univers ALLERGIE Class ity of S [facility] codeine codeine Active Andreworia esther Mullins Social History Social Habit Start Date Stop Date Quantity Comments Source Gender identity 2022-11-03 Identifies as male Carmen cadet Seybold - 09:15:43 gender (finding) External Sexual orientation 2022-11-03 Heterosexual Jovita emmanuel Seybold - 09:15:43 (finding) External Exposure to Not sure University SARS-CoV-2 (event) [facility] History of tobacco Cigarette Smoker Padmini Pateybchanning - use External Tobacco use and 2022-12-29 2022-12-29 Smokeless tobacco Ke clayton Seybold - exposure 00:00:00 00:00:00 non-user External History of Social 2022-12-29 2022-12-29 Padmini Pateybold - function 00:00:00 00:00:00 External Sex [birth year] M Padmini Pate ybchanning - 00:00:00 00:00:00 External Smoking Status Start Date Stop Date Source Unknown if ever smoked [facility] Tobacco smoking status 2023-02-09 21:04:03 Memomer Mullins Medications Ordered Filled Start Stop Current Ordering Indication Dosage Frequency Signature Comments Components Source Medication Medication Date Date Medication? Clinician (SIG) Name Name Sertraline Yes [id number] 50mg Take 1 K elsey HCl 50 MG - tablet (50 Seyb old oral Tablet 08:54: mg total) - 10 by mouth Externa daily l ASPIRIN 81 2022- No 81mg Take 81 mg Padmini OR 04-20-07 by mouth Seybold 08:51: 00:00 daily - 39 :00 Externa l Folic Acid Yes [id number] TAKE 1 Padmini 1 MG oral - TABLET BY Seybo ld tablet 00:00: MOUTH - 00 EVERY DAY Externa l Ferumoxytol 2022- No [id number] 510mg Allergic Padmini (FERAHEME) 04-14 to or Seybold 510 mg in 17:00: 17:41 failed - sodium 00 :00 INFED: Externa chloride No
510 l 0.9 % 100 mg, at 100 mL infusion mL/hr, Administer over 60 Minutes, intravenou s, ONCE, On 04/14/23 at 1200, For 1 dose
So bobby-Medrol is recommende d only if the patient has: Asth ma, or Allergy to more than one drug, or a History of inflammato ry arthritis. 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
Ferumoxytol 0 2022- No [id number] 510mg Allergic Padmini (FERAHEME) 04-05 to or Seybold 510 mg in 18:45: 19:50 failed - sodium 00 :00 INFED: Externa chloride No
510 l 0.9 % 100 mg, at 100 mL infusion mL/hr, Administer over 60 Minutes, intravenou s, ONCE, On Susy 04/05/23 at 1345, For 1 dose
So bobby-Medrol is recommende d only if the patient has: Asth ma, or Allergy to more than one drug, or a History of inflammato ry arthritis. 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
ASPIRIN 81 2022-0 Yes 81mg Take 81 mg K elsey OR 6-22 by mouth Seybold 14:10: daily - 19 Externa l ASPIRIN 81 2022-0 Yes 81mg Take 81 mg K elsey OR 6-22 by mouth Seybold 14:10: daily - 19 Externa l ASPIRIN 81 2022-0 Yes 81mg Take 81 mg K elsey OR 6-22 by mouth Seybold 14:10: daily - 19 Externa l ASPIRIN 81 2022-0 Yes 81mg Take 81 mg K elsey OR 6-22 by mouth Seybold 14:10: daily - 19 Externa l Metoclopram 2023-0 Yes [id number] 10mg Q.25D Take 1 Padmini john HCl 10 6-22 tablet (10 Sey bold MG oral 00:00: mg total) - Tablet 00 by mouth 4 Externa times l daily as needed Metoclopram 2023-0 Yes [id number] 10mg Q.25D Take 1 Padmini john HCl 10 6-22 tablet (10 Sey bold MG oral 00:00: mg total) - Tablet 00 by mouth 4 Externa times l daily as needed Metoclopram 2023-0 Yes [id number] 10mg Q.25D Take 1 Padmini john HCl 10 6-22 tablet (10 Sey bold MG oral 00:00: mg total) - Tablet 00 by mouth 4 Externa times l daily as needed Mirtazapine 2023-0 Yes [id number] 15mg Take 1 Padmini 15 MG oral 6-16 tablet (15 Sey bold Tablet 00:00: mg total) - 00 by mouth Externa nightly l Mirtazapine 2023-0 Yes [id number] 15mg Take 1 Padmini 15 MG oral 6-16 tablet (15 Sey bold Tablet 00:00: mg total) - 00 by mouth Externa nightly l Mirtazapine 2023-0 Yes [id number] 15mg Take 1 Padmini 15 MG oral 6-16 tablet (15 Sey bold Tablet 00:00: mg total) - 00 by mouth Externa nightly l Mirtazapine 2023-0 Yes [id number] 15mg Take 1 Padmini 15 MG oral 6-16 tablet (15 Sey bold Tablet 00:00: mg total) - 00 by mouth Externa nightly l Mirtazapine 2023-0 Yes [id number] 15mg Take 1 Padmini 15 MG oral 6-16 tablet (15 Sey bold Tablet 00:00: mg total) - 00 by mouth Externa nightly l Ondansetron 2023-0 Yes 8mg Q.[id number] Take 1 Padmini (ZOFRAN) 8 6-13 [id number] tablet (8 Seybold MG oral 00:00: 3D mg total) - tablet 00 by mouth Externa every 8 l hours as needed for nausea Ondansetron 2023-0 Yes 8mg Q.[id number] Take 1 Padmini (ZOFRAN) 8 6-13 [id number] tablet (8 Seybold MG oral 00:00: 3D mg total) - tablet 00 by mouth Externa every 8 l hours as needed for nausea Ondansetron 2023-0 Yes 8mg Q.[id number] Take 1 Padmini (ZOFRAN) 8 6-13 [id number] tablet (8 Seybold MG oral 00:00: 3D mg total) - tablet 00 by mouth Externa every 8 l hours as needed for nausea Ondansetron 2023-0 Yes 8mg Q.[id number] Take 1 Padmini (ZOFRAN) 8 6-13 [id number] tablet (8 Seybold MG oral 00:00: 3D mg total) - tablet 00 by mouth Externa every 8 l hours as needed for nausea Ondansetron 2023-0 Yes 8mg Q.[id number] Take 1 Padmini (ZOFRAN) 8 6-13 [id number] tablet (8 Seybold MG oral 00:00: 3D mg total) - tablet 00 by mouth Externa every 8 l hours as needed for nausea Folic Acid 2023-0 Yes [id number] TAKE 1 Padmini 1 MG oral 6-12 TABLET BY Seybo ld tablet 00:00: MOUTH - 00 EVERY DAY Externa l Folic Acid 2023-0 Yes [id number] TAKE 1 Padmini 1 MG oral 6-12 TABLET BY Seybo ld tablet 00:00: MOUTH - 00 EVERY DAY Externa l Folic Acid 2023-0 Yes [id number] TAKE 1 Padmini 1 MG oral 6-12 TABLET BY Seybo ld tablet 00:00: MOUTH - 00 EVERY DAY Externa l Folic Acid 2023-0 Yes [id number] TAKE 1 Padmini 1 MG oral 6-12 TABLET BY Seybo ld tablet 00:00: MOUTH - 00 EVERY DAY Externa l ASPIRIN 81 2023-0 Yes 81mg Take 81 mg K elsey OR 5-25 by mouth Seybold 14:42: daily - 26 Externa l Capecitabin 2023-0 2023- No [id number] 2500mg Take 2,500 Padmini e (Xeloda) 5-25 06-22 mg by Seybold 500 MG oral 00:00: 00:00 mouth 2 - tablet 00 :00 times Externa daily for l 14 days Capecitabin 3-0 2023- Yes [id number] 2500mg Take 2,500 Padmini e (Xeloda) 5-25 06-09 mg by Seybold 500 MG oral 00:00: 04:59 mouth 2 - tablet 00 :00 times Externa daily for l 14 days Levothyroxi 2022-0 Yes [id number] 100ug Take 1 Padmini ne Sodium 5-22 tablet Seybold 100 MCG 00:00: (100 mcg - oral Tablet 00 total) by Ext matt mouth l daily Levothyroxi 2022-0 Yes [id number] 100ug Take 1 Padmini ne Sodium 5-22 tablet Seybold 100 MCG 00:00: (100 mcg - oral Tablet 00 total) by Ext matt mouth l daily Levothyroxi 2022-0 Yes [id number] 100ug Take 1 Padmini ne Sodium 5-22 tablet Seybold 100 MCG 00:00: (100 mcg - oral Tablet 00 total) by Ext matt mouth l daily Levothyroxi 2022-0 Yes [id number] 100ug Take 1 Padmini ne Sodium 5-22 tablet Seybold 100 MCG 00:00: (100 mcg - oral Tablet 00 total) by Ext matt mouth l daily Levothyroxi 2022-0 Yes [id number] 100ug Take 1 Padmini ne Sodium 5-22 tablet Seybold 100 MCG 00:00: (100 mcg - oral Tablet 00 total) by Ext matt mouth l daily Levothyroxi 2022-0 Yes [id number] 100ug Take 1 Padmini ne Sodium 5-22 tablet Seybold 100 MCG 00:00: (100 mcg - oral Tablet 00 total) by Ext matt mouth l daily Folic Acid 2022-0 Yes [id number] TAKE 1 Padmini 1 MG oral 5-15 TABLET BY Seybo ld tablet 00:00: MOUTH - 00 EVERY DAY Externa l Lisinopril 2022-0 Yes [id number] 40mg Take 2 K elsey 20 MG oral 5-13 tablets Seybol d Tablet 00:00: (40 mg - 00 total) by Externa mouth l daily Lisinopril 2022-0 Yes [id number] 40mg Take 2 K elsey 20 MG oral 5-13 tablets Seybol d Tablet 00:00: (40 mg - 00 total) by Externa mouth l daily Lisinopril 2022-0 Yes [id number] 40mg Take 2 K elsey 20 MG oral 5-13 tablets Seybol d Tablet 00:00: (40 mg - 00 total) by Externa mouth l daily Lisinopril 2022-0 Yes [id number] 40mg Take 2 K elsey 20 MG oral 5-13 tablets Seybol d Tablet 00:00: (40 mg - 00 total) by Externa mouth l daily Lisinopril 2022-0 Yes [id number] 40mg Take 2 K elsey 20 MG oral 5-13 tablets Seybol d Tablet 00:00: (40 mg - 00 total) by Externa mouth l daily Lisinopril 2022-0 2023- No [id number] 40mg Take 2 Padmiin 20 MG oral 5-13 07-07 tablets Seybo ld Tablet 00:00: 00:00 (40 mg - 00 :00 total) by Externa mouth l daily HYDROcodone 2022-0 Yes [id number] 1{tbl} Q.25D Take 1 Padmini -Acetaminop 5-12 tablet by Miles grider ([employer]) 00:00: mouth - 5-325 MG 00 every 6 Externa oral Tablet hours as l needed for pain Loperamide 2022-0 Yes [id number] 2mg Q.25D Take 1 Padmini HCl 2 MG 5-12 capsule (2 Seybo ld oral 00:00: mg total) - Capsule 00 by mouth 4 Physiotherapist'S Assistant a times l daily as needed for diarrhea HYDROcodone 2022-0 Yes [id number] 1{tbl} Q.25D Take 1 Padmini -Acetaminop 5-12 tablet by Miles grider ([employer]) 00:00: mouth - 5-325 MG 00 every 6 Externa oral Tablet hours as l needed for pain Loperamide 2022-0 Yes [id number] 2mg Q.25D Take 1 Padmini HCl 2 MG 5-12 capsule (2 Seybo ld oral 00:00: mg total) - Capsule 00 by mouth 4 Physiotherapist'S Assistant a times l daily as needed for diarrhea HYDROcodone 2022-0 Yes [id number] 1{tbl} Q.25D Take 1 Padmini -Acetaminop 5-12 tablet by Miles grider ([employer]) 00:00: mouth - 5-325 MG 00 every 6 Externa oral Tablet hours as l needed for pain Loperamide 2022-0 Yes [id number] 2mg Q.25D Take 1 Padmini HCl 2 MG 5-12 capsule (2 Seybo ld oral 00:00: mg total) - Capsule 00 by mouth 4 Physiotherapist'S Assistant a times l daily as needed for diarrhea HYDROcodone 2022-0 Yes [id number] 1{tbl} Q.25D Take 1 Padmini -Acetaminop 5-12 tablet by Miles grider ([employer]) 00:00: mouth - 5-325 MG 00 every 6 Externa oral Tablet hours as l needed for pain Loperamide 2022-0 Yes [id number] 2mg Q.25D Take 1 Padmini HCl 2 MG 5-12 capsule (2 Seybo ld oral 00:00: mg total) - Capsule 00 by mouth 4 Physiotherapist'S Assistant a times l daily as needed for diarrhea HYDROcodone 2022-0 Yes [id number] 1{tbl} Q.25D Take 1 Padmini -Acetaminop 5-12 tablet by Miles grider ([employer]) 00:00: mouth - 5-325 MG 00 every 6 Externa oral Tablet hours as l needed for pain Loperamide 2022-0 Yes [id number] 2mg Q.25D Take 1 Padmini HCl 2 MG 5-12 capsule (2 Seybo ld oral 00:00: mg total) - Capsule 00 by mouth 4 Physiotherapist'S Assistant a times l daily as needed for diarrhea HYDROcodone 2022-0 2023- No [id number] 1{tbl} Q.25D Take 1 Padmini -Acetaminop 5-12 07-07 tablet by Se clemente grider ([employer]) 00:00: 00:00 mouth - 5-325 MG 00 :00 every 6 Externa oral Tablet hours as l needed for pain Loperamide 3-0 2023- No [id number] 2mg Q.25D Take 1 Padmini HCl 2 MG 5-12 07-07 capsule (2 Seyb old oral 00:00: 00:00 mg total) - Capsule 00 :00 by mouth 4 Physiotherapist'S Assistant a times l daily as needed for diarrhea Esomeprazol 3-0 Yes [id number] TAKE 1 Padmini e Magnesium 5-04 CAPSULE BY Se ybold 20 MG oral 00:00: MOUTH - Delayed 00 EVERY DAY Externa Release l Capsule Esomeprazol 3-0 Yes [id number] TAKE 1 Padmini e Magnesium 5-04 CAPSULE BY Se ybold 20 MG oral 00:00: MOUTH - Delayed 00 EVERY DAY Externa Release l Capsule Esomeprazol 3-0 Yes [id number] TAKE 1 Padmini e Magnesium 5-04 CAPSULE BY Se ybold 20 MG oral 00:00: MOUTH - Delayed 00 EVERY DAY Externa Release l Capsule Esomeprazol 3-0 Yes [id number] TAKE 1 Padmini e Magnesium 5-04 CAPSULE BY Se ybold 20 MG oral 00:00: MOUTH - Delayed 00 EVERY DAY Externa Release l Capsule Esomeprazol 2023-0 Yes [id number] TAKE 1 Padmini e Magnesium 5-04 CAPSULE BY Se ybold 20 MG oral 00:00: MOUTH - Delayed 00 EVERY DAY Externa Release l Capsule Esomeprazol 3-0 Yes [id number] TAKE 1 Padmini e Magnesium 5-04 CAPSULE BY Se ybold 20 MG oral 00:00: MOUTH - Delayed 00 EVERY DAY Externa Release l Capsule levothyroxi 2022-0 Yes 75 Memori a ne 75 mcg 4-28 microgram l (0.075 mg) 20:44: = 1 tab, Her luciano oral tablet 00 PO, Daily, # 30 tab, 0 Refill(s) levothyroxi 2022-0 Yes 75 Memori a ne 75 mcg 4-28 microgram l (0.075 mg) 20:44: = 1 tab, Her luciano oral tablet 00 PO, Daily, # 30 tab, 0 Refill(s) levothyroxi 2022-0 Yes 75 Memori a ne 75 mcg 4-28 microgram l (0.075 mg) 20:44: = 1 tab, Her luciano oral tablet 00 PO, Daily, # 30 tab, 0 Refill(s) levothyroxi 2022-0 Yes 75 Memori a ne 75 mcg 4-28 microgram l (0.075 mg) 20:44: = 1 tab, Her luciano oral tablet 00 PO, Daily, # 30 tab, 0 Refill(s) levothyroxi 2022-0 Yes 75 Memori a ne 75 mcg 4-28 microgram l (0.075 mg) 20:44: = 1 tab, Her luciano oral tablet 00 PO, Daily, # 30 tab, 0 Refill(s) levothyroxi 2023-0 Yes 75 Memori a ne 75 mcg 4-28 microgram l (0.075 mg) 20:44: = 1 tab, Her luciano oral tablet 00 PO, Daily, # 30 tab, 0 Refill(s) levothyroxi 3-0 Yes 75 Memori a ne 75 mcg 4-28 microgram l (0.075 mg) 20:44: = 1 tab, Her luciano oral tablet 00 PO, Daily, # 30 tab, 0 Refill(s) sertraline 2023-0 Yes 50 mg = 1 Me moria 50 mg oral 4-27 tab, PO, l tablet 22:41: Daily, # [place] 00 30 tab, 0 Refill(s) simethicone 2023-0 Yes 20 mg = Mem oria 40 mg/0.6 4-27 0.3 ml, l mL oral 22:41: PO, Q6H, Abdifatah n liquid 00 PRN gas pain, # 15 ml, 0 Refill(s) sertraline 2023-0 Yes 50 mg = 1 Me moria 50 mg oral 4-27 tab, PO, l tablet 22:41: Daily, # Harpreet 00 30 tab, 0 Refill(s) simethicone 2023-0 Yes 20 mg = Mem oria 40 mg/0.6 4-27 0.3 ml, l mL oral 22:41: PO, Q6H, Abdifatah n liquid 00 PRN gas pain, # 15 ml, 0 Refill(s) sertraline 2023-0 Yes 50 mg = 1 Me moria 50 mg oral 4-27 tab, PO, l tablet 22:41: Daily, # Harpreet 00 30 tab, 0 Refill(s) simethicone 2023-0 Yes 20 mg = Mem oria 40 mg/0.6 4-27 0.3 ml, l mL oral 22:41: PO, Q6H, Abdifatah n liquid 00 PRN gas pain, # 15 ml, 0 Refill(s) sertraline 2023-0 Yes 50 mg = 1 Me moria 50 mg oral 4-27 tab, PO, l tablet 22:41: Daily, # Harpreet 00 30 tab, 0 Refill(s) simethicone 2023-0 Yes 20 mg = Mem oria 40 mg/0.6 4-27 0.3 ml, l mL oral 22:41: PO, Q6H, Abdifatah n liquid 00 PRN gas pain, # 15 ml, 0 Refill(s) sertraline 2023-0 Yes 50 mg = 1 Me moria 50 mg oral 4-27 tab, PO, l tablet 22:41: Daily, # Harpreet 00 30 tab, 0 Refill(s) simethicone 2023-0 Yes 20 mg = Mem oria 40 mg/0.6 4-27 0.3 ml, l mL oral 22:41: PO, Q6H, Abdifatah n liquid 00 PRN gas pain, # 15 ml, 0 Refill(s) sertraline 2023-0 Yes 50 mg = 1 Me moria 50 mg oral 4-27 tab, PO, l tablet 22:41: Daily, # [place] 00 30 tab, 0 Refill(s) simethicone 2023-0 Yes 20 mg = Mem oria 40 mg/0.6 4-27 0.3 ml, l mL oral 22:41: PO, Q6H, Abdifatah n liquid 00 PRN gas pain, # 15 ml, 0 Refill(s) sertraline 2023-0 Yes 50 mg = 1 Me moria 50 mg oral 4-27 tab, PO, l tablet 22:41: Daily, # Harpreet 00 30 tab, 0 Refill(s) simethicone 2023-0 Yes 20 mg = Mem oria 40 mg/0.6 4-27 0.3 ml, l mL oral 22:41: PO, Q6H, Abdifatah n liquid 00 PRN gas pain, # 15 ml, 0 Refill(s) lisinopril 2023-0 Yes 20 mg = 1 Me moria 20 mg oral 4-27 tab, PO, l tablet 22:37: Daily, # [place] 00 30 tab, 0 Refill(s) lisinopril 2023-0 Yes 20 mg = 1 Me moria 20 mg oral 4-27 tab, PO, l tablet 22:37: Daily, # Harpreet 00 30 tab, 0 Refill(s) lisinopril 2023-0 Yes 20 mg = 1 Me moria 20 mg oral 4-27 tab, PO, l tablet 22:37: Daily, # Harpreet 00 30 tab, 0 Refill(s) lisinopril 2023-0 Yes 20 mg = 1 Me moria 20 mg oral 4-27 tab, PO, l tablet 22:37: Daily, # 30 tab, 0 Refill(s) lisinopril 2023-0 Yes 20 mg = 1 Me moria 20 mg oral 4-27 tab, PO, l tablet 22:37: Daily, # 30 tab, 0 Refill(s) lisinopril 2023-0 Yes 20 mg = 1 Me moria 20 mg oral 4-27 tab, PO, l tablet 22:37: Daily, # 30 tab, 0 Refill(s) lisinopril 2023-0 Yes 20 mg = 1 Me moria 20 mg oral 4-27 tab, PO, l tablet 22:37: Daily, # 30 tab, 0 Refill(s) esomeprazol 2023-0 Yes 20 mg, PO, Memoria e 4-27 Daily, 0 l 22:36: Refill(s) Harpreet fluticasone 2023-0 Yes 1 puff, Mem oria -salmeterol 4-27 INHALATION l 250 mcg-50 22:36: , BID, # Her luciano mcg MDI 00 28 ea, 0 Refill(s) folic acid 2023-0 Yes 1 mg = 1 Mem oria 1 mg oral 4-27 tab, PO, l tablet 22:36: Daily, # 30 tab, 0 Refill(s) esomeprazol 2023-0 Yes 20 mg, PO, Memoria e 4-27 Daily, 0 l 22:36: Refill(s) [place] 00 esomeprazol 2023-0 Yes 20 mg, PO, Memoria e 4-27 Daily, 0 l 22:36: Refill(s) Harpreet 00 fluticasone 2023-0 Yes 1 puff, Mem oria -salmeterol 4-27 INHALATION l 250 mcg-50 22:36: , BID, # Her lucaino mcg MDI 00 28 ea, 0 Refill(s) folic acid 2023-0 Yes 1 mg = 1 Mem oria 1 mg oral 4-27 tab, PO, l tablet 22:36: Daily, # 30 tab, 0 Refill(s) fluticasone 3-0 Yes 1 puff, Mem oria -salmeterol 4-27 INHALATION l 250 mcg-50 22:36: , BID, # luciano mcg MDI 00 28 ea, 0 Refill(s) folic acid 3-0 Yes 1 mg = 1 Mem oria 1 mg oral 4-27 tab, PO, l tablet 22:36: Daily, # Harpreet 30 tab, 0 Refill(s) esomeprazol 3-0 Yes 20 mg, PO, Memoria e 4-27 Daily, 0 l 22:36: Refill(s) fluticasone 3-0 Yes 1 puff, Mem oria -salmeterol 4-27 INHALATION l 250 mcg-50 22:36: , BID, # luciano mcg MDI 28 ea, 0 Refill(s) folic acid 3-0 Yes 1 mg = 1 Mem oria 1 mg oral 4-27 tab, PO, l tablet 22:36: Daily, # Harpreet 30 tab, 0 Refill(s) esomeprazol 3-0 Yes 20 mg, PO, Memoria e 4-27 Daily, 0 l 22:36: Refill(s) fluticasone 3-0 Yes 1 puff, Mem oria -salmeterol 4-27 INHALATION l 250 mcg-50 22:36: , BID, # luciano mcg MDI 00 28 ea, 0 Refill(s) folic acid 3-0 Yes 1 mg = 1 Mem oria 1 mg oral 4-27 tab, PO, l tablet 22:36: Daily, # Harpreet 30 tab, 0 Refill(s) esomeprazol 3-0 Yes 20 mg, PO, Memoria e 4-27 Daily, 0 l 22:36: Refill(s) [place] fluticasone 3-0 Yes 1 puff, Mem oria -salmeterol 4-27 INHALATION l 250 mcg-50 22:36: , BID, # luciano mcg MDI 00 28 ea, 0 Refill(s) folic acid 3-0 Yes 1 mg = 1 Mem oria 1 mg oral 4-27 tab, PO, l tablet 22:36: Daily, # Harpreet 30 tab, 0 Refill(s) esomeprazol 2022-0 Yes 20 mg, PO, Memoria e 02-08 Daily, 0 l 22:36: Refill(s) [place] fluticasone 2022-0 Yes 1 puff, Mem oria -salmeterol 02-08 INHALATION l 250 mcg-50 22:36: , BID, # luciano mcg MDI 28 ea, 0 Refill(s) folic acid 2022-0 Yes 1 mg = 1 Mem oria 1 mg oral 02-08 tab, PO, l tablet 22:36: Daily, # [place] 30 tab, 0 Refill(s) diltiazem 2023-0 Yes 360 mg = 1 Me moria 360 mg/24 4-27 cap, PO, l hours oral 22:35: Daily, # luciano capsule, 00 30 cap, 0 extended Refill(s) release diltiazem 2023-0 Yes 360 mg = 1 Me moria 360 mg/24 4-27 cap, PO, l hours oral 22:35: Daily, # luciano capsule, 00 30 cap, 0 extended Refill(s) release diltiazem 2023-0 Yes 360 mg = 1 Me moria 360 mg/24 4-27 cap, PO, l hours oral 22:35: Daily, # luciano capsule, 00 30 cap, 0 extended Refill(s) release diltiazem 2023-0 Yes 360 mg = 1 Me moria 360 mg/24 4-27 cap, PO, l hours oral 22:35: Daily, # luciano capsule, 00 30 cap, 0 extended Refill(s) release diltiazem 2023-0 Yes 360 mg = 1 Me moria 360 mg/24 4-27 cap, PO, l hours oral 22:35: Daily, # Her luciano capsule, 00 30 cap, 0 extended Refill(s) release diltiazem 2023-0 Yes 360 mg = 1 Me moria 360 mg/24 4-27 cap, PO, l hours oral 22:35: Daily, # luciano capsule, 00 30 cap, 0 extended Refill(s) release diltiazem 2023-0 Yes 360 mg = 1 Me moria 360 mg/24 4-27 cap, PO, l hours oral 22:35: Daily, # Her luciano capsule, 00 30 cap, 0 extended Refill(s) release clopidogrel 2023-0 Yes 75 mg = 1 M emoria 75 mg oral 4-27 tab, PO, l tablet 22:34: Daily, # Harpreet 00 30 tab, 0 Refill(s) Vitamin B12 2023-0 Yes 1,000 Memor ia 4-27 microgram, l 22:34: PO, Daily, Harpreet 00 0 Refill(s) clopidogrel 2023-0 Yes 75 mg = 1 M emoria 75 mg oral 4-27 tab, PO, l tablet 22:34: Daily, # Har[place]reet 30 tab, 0 Refill(s) Vitamin B12 3-0 Yes 1,000 Memor ia 4-27 microgram, l 22:34: PO, Daily, Harpreet 00 0 Refill(s) clopidogrel 2023-0 Yes 75 mg = 1 M emoria 75 mg oral 4-27 tab, PO, l tablet 22:34: Daily, # [place] 30 tab, 0 Refill(s) Vitamin B12 3-0 Yes 1,000 Memor ia 4-27 microgram, l 22:34: PO, Daily, [place] 00 0 Refill(s) clopidogrel 2023-0 Yes 75 mg = 1 M emoria 75 mg oral 4-27 tab, PO, l tablet 22:34: Daily, # [place] 30 tab, 0 Refill(s) Vitamin B12 3-0 Yes 1,000 Memor ia 4-27 microgram, l 22:34: PO, Daily, [place] 00 0 Refill(s) clopidogrel 2023-0 Yes 75 mg = 1 M emoria 75 mg oral 4-27 tab, PO, l tablet 22:34: Daily, # [place] 30 tab, 0 Refill(s) Vitamin B12 2023-0 Yes 1,000 Memor ia 4-27 microgram, l 22:34: PO, Daily, [place] 00 0 Refill(s) clopidogrel 2023-0 Yes 75 mg = 1 M emoria 75 mg oral 4-27 tab, PO, l tablet 22:34: Daily, # Harpreet 30 tab, 0 Refill(s) Vitamin B12 2023-0 Yes 1,000 Memor ia 4-27 microgram, l 22:34: PO, Daily, [place] 00 0 Refill(s) clopidogrel 2023-0 Yes 75 mg = 1 M emoria 75 mg oral 4-27 tab, PO, l tablet 22:34: Daily, # [place] 00 30 tab, 0 Refill(s) Vitamin B12 Yes 1,000 Memor ia 4-27 microgram, l 22:34: PO, Daily, 0 Refill(s) aspirin Yes 81 mg, PO, Cade marlon 4-27 Daily, 0 l 22:33: Refill(s) aspirin Yes 81 mg, PO, Cade marlon 4-27 Daily, 0 l 22:33: Refill(s) aspirin Yes 81 mg, PO, Cade marlon 4-27 Daily, 0 l 22:33: Refill(s) aspirin Yes 81 mg, PO, Cade marlon 4-27 Daily, 0 l 22:33: Refill(s) aspirin Yes 81 mg, PO, Cade marlon 4-27 Daily, 0 l 22:33: Refill(s) aspirin Yes 81 mg, PO, Cade marlon 4-27 Daily, 0 l 22:33: Refill(s) aspirin Yes 81 mg, PO, Cade marlon 4-27 Daily, 0 l 22:33: Refill(s) ASPIRIN 81 Yes 81mg Take 81 mg K elsey OR 4-18 by mouth Seybold 15:16: daily - 46 Externa l Levothyroxi Yes [id number] 75ug Take 1 Padmini ne Sodium 4-13 tablet (75 Seyb old 75 MCG oral 00:00: mcg total) - Tablet 00 by mouth Externa daily l Folic Acid Yes [id number] TAKE 1 Padmini 1 MG oral 4-12 TABLET BY Seybo ld tablet 00:00: MOUTH - 00 EVERY DAY Externa l Metronidazo Yes [id number] Take 1 tab Padmini le (Flagyl) 3-23 po at 1pm, Se ybold 500 MG oral 00:00: 2pm, and - Tablet 00 10pm day Externa before l surgery Neomycin Yes [id number] Take 2 Ke lsey Sulfate 500 3-23 tabs po at Se ybold MG oral 00:00: 1pm, 2pm, - Tablet 00 and 10pm Externa day before l surgery Na 2022-0 Yes [id number] Use as Padmini Sulfate-K 3-23 directed Seybol d Sulfate-Mg 00:00: prior to - Sulf 00 surgery Externa (SUPREP l BOWEL PREP KIT) 17.5-3.13-1 .6 GM/177ML oral Solution Metronidazo 2022-0 Yes [id number] Take 1 tab Padmini le (Flagyl) 3-23 po at 1pm, Se ybold 500 MG oral 00:00: 2pm, and - Tablet 00 10pm day Externa before l surgery Neomycin 2022-0 Yes [id number] Take 2 Ke lsey Sulfate 500 3-23 tabs po at Se ybold MG oral 00:00: 1pm, 2pm, - Tablet 00 and 10pm Externa day before l surgery Na 2022-0 Yes [id number] Use as Padmini Sulfate-K 3-23 directed Seybol d Sulfate-Mg 00:00: prior to - Sulf 00 surgery Externa (SUPREP l BOWEL PREP KIT) 17.5-3.13-1 .6 GM/177ML oral Solution Metronidazo 2022-0 Yes [id number] Take 1 tab Padmini le (Flagyl) 3-23 po at 1pm, Se ybold 500 MG oral 00:00: 2pm, and - Tablet 00 10pm day Externa before l surgery Neomycin 2022-0 Yes [id number] Take 2 Ke lsey Sulfate 500 3-23 tabs po at Se ybold MG oral 00:00: 1pm, 2pm, - Tablet 00 and 10pm Externa day before l surgery Na 2022-0 Yes [id number] Use as Padmini Sulfate-K 3-23 directed Seybol d Sulfate-Mg 00:00: prior to - Sulf 00 surgery Externa (SUPREP l BOWEL PREP KIT) 17.5-3.13-1 .6 GM/177ML oral Solution Metronidazo 2022-0 Yes [id number] Take 1 tab Padmini le (Flagyl) 3-23 po at 1pm, Se ybold 500 MG oral 00:00: 2pm, and - Tablet 00 10pm day Externa before l surgery Neomycin 2023-0 Yes [id number] Take 2 Ke lsey Sulfate 500 3-23 tabs po at Se ybold MG oral 00:00: 1pm, 2pm, - Tablet 00 and 10pm Externa day before l surgery Na 0 Yes [id number] Use as Padmini Sulfate-K 3-23 directed Seybol d Sulfate-Mg 00:00: prior to - Sulf 00 surgery Externa (SUPREP l BOWEL PREP KIT) 17.5-3.13-1 .6 GM/177ML oral Solution Metronidazo 0 Yes [id number] Take 1 tab Padmini le (Flagyl) 3-23 po at 1pm, Se ybold 500 MG oral 00:00: 2pm, and - Tablet 00 10pm day Externa before l surgery Neomycin 2022-0 Yes [id number] Take 2 Ke lsey Sulfate 500 3-23 tabs po at Se ybold MG oral 00:00: 1pm, 2pm, - Tablet 00 and 10pm Externa day before l surgery Na 0 Yes [id number] Use as Padmini Sulfate-K 3-23 directed Seybol d Sulfate-Mg 00:00: prior to - Sulf 00 surgery Externa (SUPREP l BOWEL PREP KIT) 17.5-3.13-1 .6 GM/177ML oral Solution Metronidazo 0 Yes [id number] Take 1 tab Padmini le (Flagyl) 3-23 po at 1pm, Se ybold 500 MG oral 00:00: 2pm, and - Tablet 00 10pm day Externa before l surgery Neomycin 2022-0 Yes [id number] Take 2 Ke lsey Sulfate 500 3-23 tabs po at Se ybold MG oral 00:00: 1pm, 2pm, - Tablet 00 and 10pm Externa day before l surgery Na 0 Yes [id number] Use as Padmini Sulfate-K 3-23 directed Seybol d Sulfate-Mg 00:00: prior to - Sulf 00 surgery Externa (SUPREP l BOWEL PREP KIT) 17.5-3.13-1 .6 GM/177ML oral Solution Metronidazo 2022-0 2022- No [id number] Take 1 tab Padmini le (Flagyl) 3-23 07-07 po at 1pm, S eybold 500 MG oral 00:00: 00:00 2pm, and - Tablet 00 :00 10pm day Externa before l surgery Neomycin 2022-0 2022- No [id number] Take 2 K elsey Sulfate 500 01-04 tabs po at S eybold MG oral 00:00: 00:00 1pm, 2pm, - Tablet 00 :00 and 10pm Externa day before l surgery Na 2022-0 2022- No [id number] Use as Kelse y Sulfate-K 01-04 directed Seybo ld Sulfate-Mg 00:00: 00:00 prior to - Sulf 00 :00 surgery Externa (SUPREP l BOWEL PREP KIT) 17.5-3.13-1 .6 GM/177ML oral Solution Ferrous Yes [id number] 325mg Take 1 Ke lsey Sulfate 325 3-21 tablet Seybol d (65 Fe) MG 00:00: (325 mg - oral Tablet 00 total) by Ext matt mouth l every other day with vitamin C or orange juice Ferrous Yes [id number] 325mg Take 1 Ke lsey Sulfate 325 3-21 tablet Seybol d (65 Fe) MG 00:00: (325 mg - oral Tablet 00 total) by Ext matt mouth l every other day with vitamin C or orange juice Ferrous Yes [id number] 325mg Take 1 Ke lsey Sulfate 325 3-21 tablet Seybol d (65 Fe) MG 00:00: (325 mg - oral Tablet 00 total) by Ext matt mouth l every other day with vitamin C or orange juice Ferrous Yes [id number] 325mg Take 1 Ke lsey Sulfate 325 3-21 tablet Seybol d (65 Fe) MG 00:00: (325 mg - oral Tablet 00 total) by Ext matt mouth l every other day with vitamin C or orange juice Ferrous Yes [id number] 325mg Take 1 Ke lsey Sulfate 325 3-21 tablet Seybol d (65 Fe) MG 00:00: (325 mg - oral Tablet 00 total) by Ext matt mouth l every other day with vitamin C or orange juice Ferrous Yes [id number] 325mg Take 1 Ke lsey Sulfate 325 3-21 tablet Seybol d (65 Fe) MG 00:00: (325 mg - oral Tablet 00 total) by Ext matt mouth l every other day with vitamin C or orange juice Ferrous 2022-0 Yes [id number] 325mg Take 1 Ke lsey Sulfate 325 3-21 tablet Seybol d (65 Fe) MG 00:00: (325 mg - oral Tablet 00 total) by Ext matt mouth l every other day with vitamin C or orange juice Cyanocobala 0 2022- No [id number] 1000{tb Take 1,000 Padmini min 1000 3-21 06-22 l} tablets by Seyb old MCG oral 00:00: 00:00 mouth - Tablet 00 :00 daily Externa l Cyanocobala 0 2022- No [id number] 1000{tb Take 1,000 Padmini min 1000 3-21 04-21 l} tablets by Seyb old MCG oral 00:00: 04:59 mouth - Tablet 00 :00 daily Externa l ASPIRIN 81 2022-0 Yes 81mg Take 81 mg K elsey OR 3-17 by mouth Seybold 12:41: daily - 17 Externa l Simethicone 0 Yes [id number] 40mg Q.25D Take 0.6 Padmini 40 MG/0.6ML 3-17 mL (40 mg Sey bold oral Liquid 00:00: total) by - 00 mouth 4 Externa times l daily as needed Simethicone 2022-0 2022- No [id number] 40mg Q.25D Take 0.6 Padmini 40 MG/0.6ML 3-17 04-18 mL (40 mg Se ybold oral Liquid 00:00: 00:00 total) by - 00 :00 mouth 4 Externa times l daily as needed Sertraline 2022-0 Yes [id number] 50mg TAKE 1 K elsey HCl 50 MG 3-13 TABLET (50 Seyb old oral Tablet 00:00: MG TOTAL) - 00 BY MOUTH Externa IN THE l MORNING. Levothyroxi 2022-0 Yes [id number] 50ug TAKE 1 Padmini ne Sodium 3-13 TABLET (50 Seyb old 50 MCG oral 00:00: MCG TOTAL) - Tablet 00 BY MOUTH Externa IN THE l MORNING. Lisinopril 2022-0 Yes [id number] 20mg TAKE 1 K elsey 20 MG oral 3-13 TABLET (20 Sey bold Tablet 00:00: MG TOTAL) - 00 BY MOUTH Externa IN THE l MORNING. Sertraline 2022-0 Yes [id number] 50mg TAKE 1 K elsey HCl 50 MG 3-13 TABLET (50 Seyb old oral Tablet 00:00: MG TOTAL) - 00 BY MOUTH Externa IN THE l MORNING. Lisinopril 2022-0 Yes [id number] 20mg TAKE 1 K elsey 20 MG oral 3-13 TABLET (20 Sey bold Tablet 00:00: MG TOTAL) - 00 BY MOUTH Externa IN THE l MORNING. Sertraline 2022-0 Yes [id number] 50mg TAKE 1 K elsey HCl 50 MG 3-13 TABLET (50 Seyb old oral Tablet 00:00: MG TOTAL) - 00 BY MOUTH Externa IN THE l MORNING. Allopurinol 2022-0 2022- No 300mg Take 300 Padmini 300 MG oral 2-15 02-15 mg by Seybol d Tablet 15:34: 00:00 mouth - 17 :00 daily Externa l ASPIRIN 81 2022-0 Yes 81mg Take 81 mg K elsey OR 2-15 by mouth Seybold 15:21: daily - 31 Externa l Fluticasone 2022-0 Yes [id number] 1{puff} Inhale 1 Padmini -Salmeterol 2-15 puff into Sey bold (Advair 00:00: the lungs - Diskus) 00 2 times Externa 250-50 daily l MCG/ACT inhalation AEROSOL POWDER, BREATH ACTIVATED Fluticasone 0 Yes [id number] 1{puff} Inhale 1 Padmini -Salmeterol 2-15 puff into Sey bold (Advair 00:00: the lungs - Diskus) 00 2 times Externa 250-50 daily l MCG/ACT inhalation AEROSOL POWDER, BREATH ACTIVATED Fluticasone 2022-0 Yes [id number] 1{puff} Inhale 1 Padmini -Salmeterol 2-15 puff into Sey bold (Advair 00:00: the lungs - Diskus) 00 2 times Externa 250-50 daily l MCG/ACT inhalation AEROSOL POWDER, BREATH ACTIVATED Fluticasone 2022-0 Yes [id number] 1{puff} Inhale 1 Padmini -Salmeterol 2-15 puff into Sey bold (Advair 00:00: the lungs - Diskus) 00 2 times Externa 250-50 daily l MCG/ACT inhalation AEROSOL POWDER, BREATH ACTIVATED Fluticasone 2023-0 Yes [id number] 1{puff} Inhale 1 Padmini -Salmeterol 2-15 puff into Sey bold (Advair 00:00: the lungs - Diskus) 00 2 times Externa 250-50 daily l MCG/ACT inhalation AEROSOL POWDER, BREATH ACTIVATED Fluticasone 2023-0 Yes [id number] 1{puff} Inhale 1 Padmini -Salmeterol 2-15 puff into Sey bold (Advair 00:00: the lungs - Diskus) 00 2 times Externa 250-50 daily l MCG/ACT inhalation AEROSOL POWDER, BREATH ACTIVATED Fluticasone 2023-0 Yes [id number] 1{puff} Inhale 1 Padmini -Salmeterol 2-15 puff into Sey bold (Advair 00:00: the lungs - Diskus) 00 2 times Externa 250-50 daily l MCG/ACT inhalation AEROSOL POWDER, BREATH ACTIVATED Fluticasone 2023-0 Yes [id number] 1{puff} Inhale 1 Padmini -Salmeterol 2-15 puff into Sey bold (Advair 00:00: the lungs - Diskus) 00 2 times Externa 250-50 daily l MCG/ACT inhalation AEROSOL POWDER, BREATH ACTIVATED Fluticasone 2023-0 Yes [id number] 1{puff} Inhale 1 Padmini -Salmeterol 2-15 puff into Sey bold (Advair 00:00: the lungs - Diskus) 00 2 times Externa 250-50 daily l MCG/ACT inhalation AEROSOL POWDER, BREATH ACTIVATED Diltiazem 2023-0 Yes [id number] TAKE 1 Ke lsey HCl Coated 2-06 CAPSULE BY [employer]eads 360 00:00: MOUTH - MG oral 00 EVERY DAY Externa Capsule 24 l Hour Sustained Release Diltiazem 2023-0 Yes [id number] TAKE 1 Ke lsey HCl Coated 2-06 CAPSULE BY [employer] 360 00:00: MOUTH - MG oral 00 EVERY DAY Externa Capsule 24 l Hour Sustained Release Diltiazem 2023-0 Yes [id number] TAKE 1 Ke lsey HCl Coated 2-06 CAPSULE BY [employer] 360 00:00: MOUTH - MG oral 00 EVERY DAY Externa Capsule 24 l Hour Sustained Release Diltiazem 2023-0 Yes [id number] TAKE 1 Ke lsey HCl Coated 2-06 CAPSULE BY Geswindy [employer] 360 00:00: MOUTH - MG oral 00 EVERY DAY Externa Capsule 24 l Hour Sustained Release Diltiazem 2023-0 Yes [id number] TAKE 1 Ke lsey HCl Coated 2-06 CAPSULE BY [employer] 360 00:00: MOUTH - MG oral 00 EVERY DAY Externa Capsule 24 l Hour Sustained Release Diltiazem 2023-0 Yes [id number] TAKE 1 Ke lsey HCl Coated 2-06 CAPSULE BY Geswindy [employer] 360 00:00: MOUTH - MG oral 00 EVERY DAY Externa Capsule 24 l Hour Sustained Release Diltiazem 2023-0 Yes [id number] TAKE 1 Ke lsey HCl Coated 2-06 CAPSULE BY [employer] 360 00:00: MOUTH - MG oral 00 EVERY DAY Externa Capsule 24 l Hour Sustained Release Diltiazem 2023-0 Yes [id number] TAKE 1 Ke lsey HCl Coated 2-06 CAPSULE BY [employer] 360 00:00: MOUTH - MG oral 00 EVERY DAY Externa Capsule 24 l Hour Sustained Release Diltiazem 2023-0 2023- No [id number] TAKE 1 K elsey HCl Coated 2-06 07-07 CAPSULE BY [employer]eads 360 00:00: 00:00 MOUTH - MG oral 00 :00 EVERY DAY Externa Capsule 24 l Hour Sustained Release Famotidine 2021-1 2023- No [id number] TAKE 1 Padmini (PEPCID) 20 2-09 02-15 TABLET BY Se ybold MG oral 00:00: 00:00 MOUTH - tablet 00 :00 EVERY Externa MORNING l AND 1 TABLET BY MOUTH EVERY EVENING Levothyroxi 2021-0 Yes [id number] 50ug TAKE 1 Padmini ne Sodium 9-09 TABLET (50 Seyb old 50 MCG oral 00:00: MCG TOTAL) - Tablet 00 BY MOUTH Externa IN THE l MORNING. Sertraline 2021-0 Yes [id number] 50mg TAKE 1 K elsey HCl 50 MG 9-09 TABLET (50 Seyb old oral Tablet 00:00: MG TOTAL) - 00 BY MOUTH Externa IN THE l MORNING. Lisinopril 2021-0 Yes [id number] 20mg TAKE 1 K elsey 20 MG [...] Yes 75mg TAKE 1 Jovita ey Bisulfate 9- TABLET (75 Seyb old 75 MG oral 00:00: MG TOTAL) - Tablet 00 BY MOUTH Externa IN THE l MORNING. Clopidogrel 2021-0 2022- No 75mg TAKE 1 Lb sey Bisulfate 9-09 04-18 TABLET (75 Sey bold 75 MG oral 00:00: 00:00 MG TOTAL) - Tablet 00 :00 BY MOUTH Externa IN THE l MORNING. Esomeprazol 2021-0 Yes [id number] TAKE 1 Padmini e Magnesium 8-03 CAPSULE BY Se ybold 20 MG oral 00:00: MOUTH - Delayed 00 EVERY DAY Externa Release l Capsule Esomeprazol 2021-0 Yes [id number] TAKE 1 Padmini e Magnesium 8-03 CAPSULE BY Se ybold 20 MG oral 00:00: MOUTH - Delayed 00 EVERY DAY Externa Release l Capsule Esomeprazol 2021-0 Yes [id number] TAKE 1 Padmini e Magnesium 8-03 CAPSULE BY Se ybold 20 MG oral 00:00: MOUTH - Delayed 00 EVERY DAY Externa Release l Capsule Furosemide 2021-0 3- No [id number] 20mg QD TAKE 1 Padmini 20 MG [...] Seybold 08:13: daily 22 Furosemide 2021-0 Yes [id number] 20mg QD TAKE 1 Padmini 20 MG oral 5-16 TABLET (20 Sey bold Tablet 00:00: MG TOTAL) 00 BY MOUTH DAILY NEEDED (EDEMA TO THE LOWER EXTREMITIE S) Famotidine No Padmini (PEPCID) 20 5-15 05-23 Seybold MG oral 00:00: 00:00 tablet 00 :00 Diltiazem Yes [id number] 360mg Take 1 K elsey HCl Coated [...] mouth Seybold 08:14: daily 30 Esomeprazol Yes [id number] 1{each} Take 1 Padmini e Magnesium 4-25 each by Seybo ld (NexIUM 00:00: mouth 24HR) 20 MG 00 daily oral Tablet Delayed Response Esomeprazol Yes [id number] 1{each} Take 1 Padmini e Magnesium 4-25 each by Seybo ld (NexIUM 00:00: mouth 24HR) 20 MG 00 daily oral Tablet Delayed Response Esomeprazol 2021- No [id number] 1{each} Take 1 Padmini e Magnesium 4-25 04-25 each by Seyb old (NexIUM 00:00: 00:00 mouth 24HR) 20 MG 00 :00 daily oral Tablet Delayed Response Iron, Yes [id number] 1{each} Take 1 Ke lsey Ferrous 3-16 each by Seybold Sulfate, 00:00: mouth 2 325 (65 Fe) 00 times MG oral daily Tablet Iron, Yes [id number] 1{each} Take 1 Ke lsey Ferrous 3-16 each by Seybold Sulfate, 00:00: mouth 2 325 (65 Fe) 00 times MG oral daily Tablet Iron, 2022- No [id number] 1{each} Take 1 K elsey Ferrous 3-16 02-15 each by Seybold Sulfate, 00:00: 00:00 mouth 2 - 325 (65 Fe) 00 :00 times Externa MG oral daily l Tablet Famotidine 2021- No [id number] 20mg Take 1 Padmini (Pepcid) 20 3-16 [...] Seybold 08:15: daily 14 Lisinopril 2021-0 Yes [id number] 20mg Take 1 K elsey 20 MG oral 3-14 tablet (20 Sey bold Tablet 00:00: mg total) 00 by mouth in the morning. Levothyroxi 2021-0 Yes [id number] 50ug Take 1 Padmini ne Sodium 3-14 tablet (50 Seyb old 50 MCG oral 00:00: mcg total) Tablet 00 by mouth in the morning. Clopidogrel 2021-0 Yes 75mg Take 1 Jovita ey Bisulfate 3-14 tablet (75 Seyb old 75 MG oral 00:00: mg total) Tablet 00 by mouth in the morning. Sertraline 2021-0 Yes [id number] 50mg Take 1 K elsey HCl 50 MG 3-14 tablet (50 Seyb old oral Tablet 00:00: mg total) 00 by mouth in the morning. Fluticasone 2021-0 Yes [id number] 1{puff} Inhale 1 Padmini -Salmeterol 3-14 puff into Sey bold (Advair 00:00: the lungs Diskus) 00 in the 250-50 morning MCG/DOSE and 1 puff inhalation in the AEROSOL evening. POWDER, BREATH ACTIVATED Lisinopril 2021-0 Yes [id number] 20mg Take 1 K elsey 20 MG oral 3-14 tablet (20 Sey bold Tablet 00:00: mg total) 00 by mouth in the morning. Levothyroxi 202-0 Yes [id number] 50ug Take 1 Padmini ne Sodium 3-14 tablet (50 Seyb old 50 MCG oral 00:00: mcg total) Tablet 00 by mouth in the morning. Clopidogrel 2-0 Yes 75mg Take 1 Jovita ey Bisulfate 3-14 tablet (75 Seyb old 75 MG oral 00:00: mg total) Tablet 00 by mouth in the morning. Sertraline 2022-0 Yes [id number] 50mg Take 1 K elsey HCl 50 MG 3-14 tablet (50 Seyb old oral Tablet 00:00: mg total) 00 by mouth in the morning. Furosemide 2022-0 Yes [id number] 20mg QD Take 1 Padmini 20 MG oral 3-14 tablet (20 Sey bold Tablet 00:00: mg total) 00 by mouth daily as needed (edema to the lower extremitie s) Fluticasone 202-0 Yes 1{puff} Inhale 1 Padmini -Salmeterol 3-14 puff into Sey bold (Advair 00:00: the lungs Diskus) 00 in the 250-50 morning MCG/DOSE and 1 puff inhalation in the AEROSOL evening. POWDER, BREATH ACTIVATED Lisinopril 202-0 Yes [id number] 20mg Take 1 K elsey 20 MG oral 3-14 tablet (20 Sey bold Tablet 00:00: mg total) 00 by mouth in the morning. Levothyroxi 202-0 Yes [id number] 50ug Take 1 Padmini ne Sodium 3-14 tablet (50 Seyb old 50 MCG oral 00:00: mcg total) Tablet 00 by mouth in the morning. Clopidogrel 2-0 Yes 75mg Take 1 Jovita ey Bisulfate 3-14 tablet (75 Seyb old 75 MG oral 00:00: mg total) Tablet 00 by mouth in the morning. Sertraline 2021-0 Yes [id number] 50mg Take 1 K elsey HCl 50 MG 3-14 tablet (50 Seyb old oral Tablet 00:00: mg total) 00 by mouth in the morning. Furosemide 2022-0 Yes [id number] 20mg QD Take 1 Padmini 20 MG oral 3-14 tablet (20 Sey bold Tablet 00:00: mg total) 00 by mouth daily as needed (edema to the lower extremitie s) Fluticasone 2022-0 Yes [id number] 1{puff} Inhale 1 Padmini -Salmeterol 3-14 puff into Sey bold (Advair 00:00: the lungs Diskus) 00 in the 250-50 morning MCG/DOSE and 1 puff inhalation in the AEROSOL evening. POWDER, BREATH ACTIVATED Fluticasone 2021-0 2023- No [id number] 1{puff} Inhale 1 Padmini -Salmeterol 3-14 02-15 puff into Se ybold (Advair 00:00: 00:00 the lungs - Diskus) 00 :00 in the Externa 250-50 morning l MCG/DOSE and 1 puff inhalation in the AEROSOL evening. POWDER, BREATH ACTIVATED Lisinopril No [id number] 20mg Take 1 Padmini 20 MG oral 11-03 tablet (20 Se ybold Tablet 00:00: 00:00 mg total) 00 :00 by mouth daily Sertraline No [id number] 50mg Take 1 Padmini HCl 50 MG 11-03 tablet (50 Sey bold oral Tablet 00:00: 00:00 mg total) 00 :00 by mouth daily Levothyroxi No [id number] 50ug Take 1 Padmini ne Sodium 11-03 tablet (50 Sey bold 50 MCG oral 00:00: 00:00 mcg total) Tablet 00 :00 by mouth daily Clopidogrel 2020-10 No TAKE ONE K elsey Bisulfate 12-26 TABLET BY Seyb old 75 MG oral [...] times 160-4.5 daily MCG/ACT inhalation Aerosol Cyclobenzap No 5mg [id number] Take 1 Padmini rine HCl 5 -19 14 [id number] tablet (5 Seybold MG oral 00:00: 00:00 [...] 6 months 00:00:00 and up Influenza Virus 2016-08-14 Completed Padmini Se ybold Vaccine, age 6 months 00:00:00 - E xternal and up Pneumococcal Vaccine, 2016-08-14 Completed Lb sey Seybold Polysaccharide 00:00:00 - External Influenza Virus 2016-08-14 Completed Padmini Se ybold Vaccine, age 6 months 00:00:00 - E xternal and up Pneumococcal Vaccine, 2016-08-14 Completed Lb sey Seybold Polysaccharide 00:00:00 Pneumococcal Vaccine, 2016-08-14 Completed Lb sey Seybold [...] and up Pneumococcal Vaccine, 2016-08-14 Completed Lb patey Seybold Polysaccharide 00:00:00 Vital Signs Vital Name Observation Time Observation Value Comments Source Systolic blood 2023-04-20 13:36:00 140 mm[Hg] Padmini Seybold - pressure External Diastolic blood 2023-04-20 13:36:00 79 mm[Hg] Lbse y Seybold - pressure External Heart rate 2023-04-20 13:36:00 110 /min Padmini S eybold - External Body temperature 2023-04-20 13:36:00 36.56 Nadine Jovita ey Seybold - External Respiratory rate 2023-04-20 13:36:00 20 /min Jovita ey Seybold - External Body height 2023-04-20 13:36:00 198.1 cm Padmini S eybold - External Body weight 2023-04-20 13:36:00 63.957 kg Padmini S eybold - External BMI 2023-04-20 13:36:00 16.29 kg/m2 Padmini S eybold - External Oxygen saturation in 2023-04-20 13:36:00 98 /min Padmini Pateybchanning - Arterial blood by External Pulse oximetry Systolic blood 2023-04-14 18:10:00 114 mm[Hg] Padmini Seybold - pressure External Diastolic blood 2023-04-14 18:10:00 60 mm[Hg] Lbse y Seybold - pressure External Heart rate 2023-04-14 18:10:00 66 /min Padmini S eybold - External Respiratory rate 2023-04-14 18:10:00 18 /min Jovita ey Seybold - External Body temperature 2023-04-14 16:17:00 36.61 Nadine Jovita ey Seybold - External Body height 2023-04-14 16:17:00 198.1 cm Padmini S eybold - External Body weight 2023-04-14 16:17:00 63.957 kg Padmini Garcia eybold - External BMI 2023-04-14 16:17:00 16.29 kg/m2 Padmini S eybold - External Oxygen saturation in 2023-04-14 16:17:00 96 /min Padmini Seybold - Arterial blood by External Pulse oximetry Systolic blood 2023-04-05 19:09:00 85 mm[Hg] Apdmini Seybold - pressure External Diastolic blood 2023-04-05 19:09:00 51 mm[Hg] Kelse y Seybold - pressure External Heart rate 2023-04-05 19:09:00 73 /min Padmini S eybold - External Body temperature 2023-04-05 19:09:00 36.44 Nadine Jovita ey Seybold - External Respiratory rate 2023-04-05 19:09:00 17 /min Jovita ey Seybold - External Body height 2023-04-05 19:09:00 198.1 cm Padmini S eybold - External Body weight 2023-04-05 19:09:00 64.501 kg Padmini S eybold - External BMI 2023-04-05 19:09:00 16.43 kg/m2 Padmini S eybold - External Oxygen saturation in 2023-04-05 19:09:00 99 /min Padmini Seybold - Arterial blood by External Pulse oximetry Systolic blood 2023-04-05 20:18:00 81 mm[Hg] Padmini Seybold - pressure External Diastolic blood 2023-04-05 20:18:00 53 mm[Hg] Lbse y Seybold - pressure External Heart rate 2023-04-05 20:18:00 70 /min Padmini S eybold - External Body temperature 2023-04-05 18:22:00 35.94 Nadine Jovita ey Seybold - External Respiratory rate 2023-04-05 18:22:00 16 /min Jovita ey Seybold - External Body height 2023-04-05 18:22:00 198.1 cm Padmini S eybold - External Body weight 2023-04-05 18:22:00 64.501 kg Padmini S eybold - External BMI 2023-04-05 18:22:00 16.43 kg/m2 Padmini S eybold - External Oxygen saturation in 2023-04-05 18:22:00 91 /min Padmini Seybold - Arterial blood by External Pulse oximetry Systolic blood 2023-03-08 19:42:00 136 mm[Hg] Padmini Seybold - pressure External Diastolic blood 2023-03-08 19:42:00 66 mm[Hg] Kelse y Seybold - pressure External Heart rate 2023-03-08 19:42:00 74 /min Padmini S eybold - External Body temperature 2023-03-08 19:42:00 36.78 Nadine Jovita ey Seybold - External Respiratory rate 2023-03-08 19:42:00 16 /min Jovita ey Seybold - External Body height 2023-03-08 19:42:00 198.1 cm Padmini S eybold - External Body weight 2023-03-08 19:42:00 69.174 kg Padmini S eybold - External BMI 2023-03-08 19:42:00 17.62 kg/m2 Padmini S eybold - External Oxygen saturation in 2023-03-08 19:42:00 98 /min Padmini Seybold - Arterial blood by External Pulse oximetry Systolic blood 2023-01-30 20:15:00 142 mm[Hg] Padmini Seybold - pressure External Diastolic blood 2023-01-30 20:15:00 52 mm[Hg] Lbse y Seybold - pressure External [...] External Diastolic blood 2022-12-29 17:40:00 67 mm[Hg] Kelse y Seybold - pressure External [...] saturation in 2022-12-29 17:40:00 100 /min Padmini Wendyold - Arterial blood by External Pulse oximetry [...] Body height 2021-12-26 13:07:00 198.1 cm Padmini S eybold Body weight 2021-12-26 13:07:00 84.823 kg Padmini S eybold BMI 2021-12-26 13:07:00 21.61 kg/m2 Padmini jessica Heart Rate 2023-02-23 17:33:28 [facility] Temperature Oral (F) 2023-02-23 17:32:56 97.6 F [facility] Systolic (mm Hg) 2023-02-23 17:32:54 [facility] Diastolic (mm Hg) 2023-02-23 17:32:54 [facility] Height 2023-02-19 12:25:00 6 [ft_i] [facility] Weight 2023-02-19 12:25:00 [facility] BMI Calculated 2023-02-19 12:25:00 [facility] Weight 2023-02-09 20:35:00 [facility] Procedures Procedure Date / Time Performed Performing Clinician [facility] e Back 1982-10-15 00:00:00 Nikky luciano Encounters Start End Encounter Admission Attending Care Care Encounter Source Date/Time Date/Time Type Type Clinicians Facility Department ID 2023-06-25 2023-06-25 Outpatient PADMINI TALAVERA [id number] Padmini 09:30:00 09:30:00 FREDDY Seybol d 2023-05-21 2023-05-21 Outpatient PADMINI BRAXTON [id number] Padmini 09:30:00 09:30:00 IVELISSE Seybol d 2023-05-04 2023-05-04 Outpatient ARNOLDO KIM [id number] Padmini 09:45:00 09:45:00 Seybol d 2023-04-30 2023-04-30 Outpatient STEPHY HI [id number] Padmini 11:40:00 11:40:00 Seybol d 2023-04-21 2023-04-21 Outpatient VACHIRASGIOVANNA LUQUE [id number] Padmini 00:00:00 00:00:00 EKDIONTE Seybol emily BECKER 2023-04-20 2023-04-20 Outpatient LAB90 PADMINI LUQUE [id number] Padmini 09:15:00 09:15:00 Seybol d 2023-04-20 2023-04-20 Outpatient PADMINI TALAVERA [id number] Padmini 08:30:00 08:30:00 FREDDY Seybol d 2023-04-19 2023-04-19 Outpatient STEPHY [place] PADMINI LUQUE [id number] Padmini 00:00:00 00:00:00 Seybol d 2023-04-18 2023-04-18 Outpatient PADMINI LUQUE [id number] Padmini 00:00:00 00:00:00 Seybol d 2023-04-14 2023-04-14 Outpatient INFUSION, PADMINI LUQUE [id number] Padmini 11:00:00 11:00:00 Seybol d 2023-04-13 2023-04-13 Outpatient ADAMEPADMINI [id number] Padmini 00:00:00 00:00:00 KIMMY Seybol d 2023-04-13 2023-04-13 Outpatient JUDYARNOLDO [id number] Padmini 00:00:00 00:00:00 Seybol d 2023-04-13 2023-04-13 Outpatient PADMINI ARNOLD [id number] Padmini 00:00:00 00:00:00 AYESHIA Seybol d 2023-04-12 2023-04-12 Outpatient WON, ARNOLDO LUQUE [id number] Padmini 00:00:00 00:00:00 Seybol d 2023-04-11 2023-04-11 Outpatient JUDYARNOLDO [id number] Padmini 00:00:00 00:00:00 Seybol d 2023-04-09 2023-04-09 Outpatient PREZASPADMINI [id number] Padmini 00:00:00 00:00:00 FREDDY Seybol d 2023-04-09 2023-04-09 Outpatient PADMINI JONES [id number] Padmini 00:00:00 00:00:00 PURABELBEElizabeth Seybo ld 2023-04-06 2023-04-06 Outpatient JUDYARNOLDO [id number] Padmini 00:00:00 00:00:00 Seybol d 2023-04-06 2023-04-06 Outpatient PADMINI LUQUE [id number] Padmini 00:00:00 00:00:00 Seybol d 2023-04-05 2023-04-05 [place] [id number] Padmini 14:00:00 14:00:00 Seybol d 2023-04-05 2023-04-05 Outpatient PADMINI PAGAN [id number] Padmini 13:30:00 13:30:00 MATHEW Seybo ld 2023-04-05 2023-04-05 Outpatient INFUSION, PADMINI LUQUE [id number] Padmini 13:00:00 13:00:00 MC Seybol d 2023-04-05 2023-04-05 Outpatient PADMINI PAGAN [id number] Padmini 12:00:00 12:00:00 MATHEW Seybo ld 2023-04-05 2023-04-05 Outpatient INFUSION, PADMINI LUQUE [id number] Padmini 11:30:00 11:30:00 MC Seybol d 2023-04-02 2023-04-02 Outpatient PADMINI JONES [id number] Padmini 00:00:00 00:00:00 PURABELBEN Seybo ld 2023-03-30 2023-03-30 [place] [id number] Padmini 00:00:00 00:00:00 Seybol d 2023-03-30 2023-03-30 [place] [id number] Padmini 00:00:00 00:00:00 Seybol d 2023-03-29 2023-03-29 Outpatient PADMINI JONES [id number] Padmini 00:00:00 00:00:00 PURVIBEN Seybo ld 2023-03-28 2023-03-28 Outpatient PADMINI HOOKER [id number] Padmini 00:00:00 00:00:00 VALE Seybol d 2023-03-27 2023-03-27 [place] [id number] Padmini 00:00:00 00:00:00 Seybol d 2023-03-27 2023-03-27 Outpatient PADMINI LUQUE [id number] Padmini 00:00:00 00:00:00 Seybol d 2023-03-25 2023-03-25 Outpatient MAGDY PADMINI LUQUE [id number] Padmini 00:00:00 00:00:00 , ALIREZA Aquino lenin 2023-03-25 2023-03-25 [place] 1221 [id number] Padmini 00:00:00 00:00:00 Seybol d 2023-03-19 2023-03-19 Outpatient JUDYARNOLDO [id number] Padmini 00:00:00 00:00:00 Seybol d 2023-03-13 2023-03-13 Outpatient PADMINI SINGH [id number] Padmini 00:00:00 00:00:00 BELKIS gutierrez 2023-03-09 2023-03-09 [place] [id number] Padmini 00:00:00 00:00:00 Seybol d 2023-03-09 2023-03-09 [place] [id number] Padmini 00:00:00 00:00:00 Seybol d 2023-03-08 2023-03-08 [place] [id number] Padmini 14:40:00 14:40:00 Seybol d 2023-03-08 2023-03-08 [place] [id number] Padmini 10:20:00 10:20:00 Seybol d 2023-03-07 2023-03-07 Outpatient PADMINI TALAVERA [id number] Padmini 08:00:00 08:00:00 FREDDY Seybol d 2023-03-02 2023-03-02 Outpatient LAB39 PADMINI LUQUE [id number] Padmini 09:00:00 09:00:00 Seybol d 2023-03-02 2023-03-02 Outpatient JUDYARNOLDO [id number] Padmini 08:30:00 08:30:00 Seybol d 2023-03-02 2023-03-02 Outpatient PADMINI TALAVERA [id number] Padmini 00:00:00 00:00:00 FREDDY Seybol d 2023-02-28 2023-02-28 Outpatient PREZAJose PADMINI LUQUE [id number] Padmini 00:00:00 00:00:00 FREDDY Seybol d 2023-02-27 2023-02-27 Outpatient LAB47 PADMINI LUQUE [id number] Padmini 14:55:00 14:55:00 Seybol d 2023-02-27 2023-02-27 Outpatient WON, ARNOLDO PADMINI LUQUE [id number] Padmini 14:30:00 14:30:00 Seybol d 2023-02-27 2023-02-27 Outpatient PROVIDER, PADMINI LUQUE [id number] Padmini 00:00:00 00:00:00 AFFILIATE Seyb old 2023-02-26 2023-02-26 Outpatient BUNNY ADEEL PADMINI LUQUE [id number] Padmini 00:00:00 00:00:00 Seybol d 2023-02-26 2023-02-26 Outpatient PADMINI LUQUE [id number] Padmini 00:00:00 00:00:00 Seybol d 2023-02-26 2023-02-26 Outpatient PADMINI LUQUE [id number] Padmini 00:00:00 00:00:00 Seybol d 2023-02-25 2023-02-25 Outpatient PADMINI BETTS [id number] Padmini 00:00:00 00:00:00 ANJELICA Seybol d 2023-02-24 2023-02-24 Outpatient PADMINI OSPINA [id number] Padmini 00:00:00 00:00:00 CON Seybo ld 2023-02-24 2023-02-24 Outpatient PADMINI HARO [id number] Padmini 00:00:00 00:00:00 JULIAN Seybol d 2023-02-24 2023-02-24 [place] [id number] Padmini 00:00:00 00:00:00 Seybol d 2023-02-19 2023-02-23 [facility] [id number] 10:59:00 19:00:[address] 2023-02-19 2023-02-23 Inpatient JABIER [facility] [id number] Memoria 10:59:00 19:00:00 Harpreet 00 l [facility] 2023-02-19 2023-02-23 Inpatient ARNOLDO [facility] CINDY 7500 Memoria 05:59:00 14:00:00 [facility] 2023-02-19 2023-02-23 Outpatient Judy Arnoldo [facility] [id number] 05:59:00 14:00:00 00 2023-02-23 2023-02-23 Outpatient WON, ARNOLDO LUQUE [id number] Padmini 00:00:00 00:00:00 Seybol d 2023-02-23 2023-02-23 Outpatient WON, ARNOLDO LUQUE [id number] Padmini 00:00:00 00:00:00 Seybol d 2023-02-23 2023-02-23 Outpatient WON, ARNOLDO LUQUE [id number] Padmini 00:00:00 00:00:00 Seybol d 2023-02-20 2023-02-20 Outpatient PADMINI LUQUE [id number] Padmini 00:00:00 00:00:00 Seybol d 2023-02-19 2023-02-19 Outpatient WON, ARNOLDO LUQUE [id number] Padmini 08:00:00 08:00:00 Seybol d 2023-02-19 2023-02-19 Outpatient WON, ARNOLDO LUQUE [id number] Padmini 00:00:00 00:00:00 Seybol d 2023-02-15 2023-02-15 Outpatient 39GEORGE [id number] Padmini 10:30:00 10:30:00 Seybol d 2023-02-15 2023-02-15 Outpatient PADMINI BRAXTON [id number] Padmini 10:10:00 10:10:00 IVELISSE Seybol d 2023-02-14 2023-02-14 Outpatient PADMINI TALAVERA [id number] Padmini 00:00:00 00:00:00 FREDDY Seybol d 2023-02-02 2023-02-02 Outpatient ROSY PADMINI LUQUE [id number] Padmini 00:00:00 00:00:00 MD JOSÉ Seybol d 2023-02-01 2023-02-01 Outpatient PREZAS, PADMINI LUQUE [id number] Padmini 00:00:00 00:00:00 FREDDY Seybol d 2023-02-01 2023-02-01 Outpatient LISANDRO KIMY PADMINI LUQUE [id number] Padmini 00:00:00 00:00:00 Seybol d 2023-01-30 2023-01-30 Outpatient PREZASPADMINI [id number] Padmini 15:15:00 15:15:00 FREDDY Seybol d 2023-01-27 2023-01-27 Outpatient PREZAS, PADMINI LUQUE [id number] Padmini 00:00:00 00:00:00 FREDDY Seybol d 2023-01-26 2023-01-26 [place] [id number] Padmini 10:00:00 10:00:00 Seybol d 2023-01-25 2023-01-25 Outpatient PREZAS, PADMINI LUQUE [id number] Padmini 00:00:00 00:00:00 FREDDY Seybol d 2023-01-24 2023-01-24 Outpatient LAB90 PADMINI LUQUE [id number] Padmini 08:00:00 08:00:00 Seybol d 2023-01-24 2023-01-24 [place] [id number] Padmini 00:00:00 00:00:00 Seybol d 2023-01-23 2023-01-23 Outpatient PREZASPADMINI [id number] Padmini 00:00:00 00:00:00 FREDDY Seybol d 2023-01-23 2023-01-23 Outpatient PREZASPADMINI [id number] Padmini 00:00:00 00:00:00 FREDDY Seybol d 2023-01-23 2023-01-23 Outpatient PREZAS, PADMINI LUQUE [id number] Padmini 00:00:00 00:00:00 FREDDY Seybol d 2023-01-17 2023-01-17 Outpatient PADMINI LUQUE [id number] Padmini 00:00:00 00:00:00 Seybol d 2023-01-09 2023-01-09 Outpatient LISANDRO KIMAnnamarie LUQUE [id number] Padmini 00:00:00 00:00:00 Seybol d 2023-01-09 2023-01-09 Outpatient JULIOMILESKARTHIK PADMINI LUQUE [id number] Padmini 00:00:00 00:00:00 MD JOSÉ Seybol d 2023-01-04 2023-01-04 Outpatient JUDY ARNOLDO LUQUE [id number] Padmini 00:00:00 00:00:00 Seybol d 2023-01-03 2023-01-03 Outpatient PADMINI LUQUE [id number] Padmini 11:00:00 11:00:00 Seybol d 2023-01-02 2023-01-02 Outpatient PADMINI LUQUE [id number] Padmini 09:00:00 09:00:00 Seybol d 2023-01-01 2023-01-01 Outpatient PADMINI LUQUE [id number] Padmini 08:00:00 08:00:00 Seybol d 2022-12-29 2022-12-29 [place] [id number] Padmini 13:00:00 13:00:00 Seybol d 2022-12-29 2022-12-29 Outpatient LAB39 PADMINI LUQUE [id number] Padmini 10:30:00 10:30:00 Seybol d 2022-12-29 2022-12-29 Outpatient JUDY ARNOLDO LUQUE [id number] Padmini 09:45:00 09:45:00 Seybol d 2022-12-29 2022-12-29 Outpatient PADMINI FLOWER [id number] Padmini 00:00:00 00:00:00 RASHNO Seybol d 2022-12-27 2022-12-27 Outpatient PADMINI LUQUE [id number] Padmini 00:00:00 00:00:00 Seybol d 2022-12-25 2022-12-25 Outpatient PADMINI TALAVERA [id number] Padmini 00:00:00 00:00:00 FREDDY Seybol d 2022-12-21 2022-12-21 Outpatient PREPADMINI MONSIVAIS [id number] Padmini 00:00:00 00:00:00 FREDDY Seybol d 2022-12-20 2022-12-20 Outpatient PADMINI LUQUE [id number] Padmini 00:00:00 00:00:00 Seybol d 2022-12-15 2022-12-15 Outpatient PREPADMINI MONSIVAIS [id number] Padmini 13:45:00 13:45:00 FREDDY Seybol d 2022-12-04 2022-12-04 Outpatient PADMINI LUQUE [id number] Padmini 00:00:00 00:00:00 Seybol d 2022-12-01 2022-12-01 Outpatient PREZAPADMINI Garcia [id number] Padmini 00:00:00 00:00:00 FREDDY Seybol d 2022-12-01 2022-12-01 Outpatient PADMINI LUQUE [id number] Padmini 00:00:00 00:00:00 Seybol d 2022-12-01 2022-12-01 Outpatient PADMINI LUQUE [id number] Padmini 00:00:00 00:00:00 Seybol d 2022-11-29 2022-11-29 Outpatient LAB90 PADMINI LUQUE [id number] Padmini 15:50:00 15:50:00 Seybol d 2022-11-29 2022-11-29 Outpatient PREPADMINI MONSIVAIS [id number] Padmini 15:15:00 15:15:00 FREDDY Seybol d 2022-11-29 2022-11-29 Outpatient PADMINI LUQUE [id number] Padmini 00:00:00 00:00:00 Seybol d 2022-11-21 2022-11-21 Outpatient PADMINI TALAVERA [id number] Padmini 16:00:00 16:00:00 FREDDY Seybol d 2022-11-17 2022-11-17 Outpatient PADMINI TALAVERA [id number] Padmini 00:00:00 00:00:00 FREDDY Seybol d 2022-09-22 2022-09-22 Outpatient JCARLOSANURAGJose PADMINI LUQUE [id number] Padmini 00:00:00 00:00:00 FREDDY Seybol d 2022-03-06 2022-03-06 Outpatient LAB90 PADMINI LUQUE [id number] Padmini 08:50:00 08:50:00 Seybol d 2022-03-06 2022-03-06 Office Nehemiah Talavera [id number] Padmini 08:00:00 08:15:00 Visit Freddy Dietz 350.1.13.13 Se ybold [id number] [id number] 2022-02-15 2022-02-15 Outpatient PADMINI TALAVERA [id number] Padmini 00:00:00 00:00:00 FREDDY Seybol d 2022-02-07 2022-02-07 Outpatient PADMINI TALAVERA [id number] Padmini 00:00:00 00:00:00 FREDDY Seybol d 2022-02-06 2022-02-06 Outpatient LAB90 PADMINI LUQUE [id number] Padmini 08:45:00 08:45:00 Seybol d 2022-02-06 2022-02-06 Office Nehemiah Talavera [id number] Padmini 08:00:00 08:15:00 Visit Freddy Dietz 350.1.13.13 Se ybold [id number] [id number] 2022-01-26 2022-01-26 Outpatient PADMINI TALAVERA [id number] Padmini 00:00:00 00:00:00 FREDDY Seybol d 2022-01-23 2022-01-23 Outpatient PADMINI TALAVERA [id number] Padmini 08:00:00 08:00:00 FREDDY Seybol d 2022-01-11 2022-01-11 Outpatient LAB90 PADMINI LUQUE [id number] Padmini 08:15:00 08:15:00 Seybol d 2022-01-09 2022-01-09 Outpatient LAB90 PADMINI LUQUE [id number] Padmini 08:20:00 08:20:00 Seybol d 2021-12-28 2021-12-28 Outpatient RICH PADMINI LUQUE [id number] Padmini 13:30:00 13:30:00 FREDDY Seybol d 2021-12-28 2021-12-28 Outpatient PREZAJose PADMINI LUQUE [id number] Padmini 00:00:00 00:00:00 FREDDY Seybol d 2021-12-28 2021-12-28 Outpatient PADMINI LUQUE [id number] Padmini 00:00:00 00:00:00 Seybol d 2021-12-28 2021-12-28 Outpatient PADMINI LUQUE [id number] Padmini 00:00:00 00:00:00 Seybol d 2021-12-28 2021-12-28 Outpatient ROSY LUQUE [id number] Padmini 00:00:00 00:00:00 MD JOSÉ Seybol d 2021-12-28 2021-12-28 Outpatient PADMINI TALAVERA [id number] Padmini 00:00:00 00:00:00 FREDDY Seybol d 2021-12-27 2021-12-27 Outpatient PREYODIT PADMINI LUQUE [id number] Padmini 00:00:00 00:00:00 FREDDY Seybol d 2021-12-27 2021-12-27 Outpatient PREYODIT PADMINI LQUUE [id number] Padmini 00:00:00 00:00:00 FREDDY Seybol d 2021-12-26 2021-12-26 Outpatient LAB90 PADMINI LUQUE [id number] Padmini 09:30:00 09:30:00 Seybol d 2021-12-26 2021-12-26 Office Nehemiah Talavera [id number] Padmini 08:30:00 09:15:00 Visit Freddy Dietz 350.1.13.13 Se ybold [id number] [id number] 2021-12-26 2021-12-26 Outpatient PADMINI LUQUE [id number] Padmini 00:00:00 00:00:00 Seybol d 2021-11-01 2021-11-01 Outpatient GROUP, PADMINI LUQUE [id number] Padmini 00:00:00 00:00:00 PADMINI diaz 2021-03-21 2021-03-21 Hospital Radiology [facility] 1.2.840.114 [id number] [facility] 15:35:00 23:59:00 [facility] [id number] [facility] [address] 2021-03-21 2021-03-21 Outpatient R RADIOLOGY [facility] [id number] [facility] 00:00:00 00:00:00 ity [facility] Results Test Description Test Time Test Comments Results Result Comments Source HEMATOLOGY 2023-02-23 08:55:00 Test Item Value Reference Range Interpretation Comme nts Monocytes (test code = Monocytes) 12.8 2.0-12.0 [place] 193453-05-12 08:55:00 Test Item Value Reference Range Interpretation Comments Eosinophils (test code = 4.1 See_Comment [A utomated message] The Eosinophils) system which ge nerated this result tra nsmitted reference range : <=4.0. The reference r enrique was not used to int erpret this result as normal/abnormal . [facility] 08:55:00 Test Item Value Reference Range Interpretation Comments Basophils (test code = 0.7 See_Comment [Aut omated message] The Basophils) system which ge nerated this result tra nsmitted reference range : <=1.0. The reference r enrique was not used to int erpret this result as normal/abnormal . [facility]30[facility]30-53 08:55:00 Test Item Value Reference Range Interpretation Comments Neutrophils # (test code = Neutrophils 3.4 1.5-8.1 #) [place] [address]-05-12 08:55:00 Test Item Value Reference Range Interpretation Comments Lymphocytes # (test code = Lymphocytes 0.8 1.0-5.5 #) [place] 193453-05-12 08:55:00 Test Item Value Reference Range Interpretation Comments Monocytes # (test code 0.6 See_Comment [Aut omated message] The = Monocytes #) system which generated this result tra nsmitted reference range : <=0.8. The reference r enrique was not used to int erpret this result as normal/abnormal . [place] 193453-05-12 08:55:00 Test Item Value Reference Range Interpretation Comments Eosinophils # (test code 0.2 See_Comment [A utomated message] The = Eosinophils #) system whic h generated this result tra nsmitted reference range : <=0.5. The reference r enrique was not used to int erpret this result as normal/abnormal . [facility]68-46 08:55:00 Test Item Value Reference Range Interpretation Comments WBC (test code = WBC) 5.0 3.7-10.4 [place] [address]-05-12 08:55:00 Test Item Value Reference Range Interpretation Comments RBC (test code = RBC) 2.82 4.70-6.10 [place] 363893-05-12 08:55:00 Test Item Value Reference Range Interpretation Comments Glucose Lvl (test code = Glucose Lvl) 99 70-99 [place] [address]-05-12 08:55:00 Test Item Value Reference Range Interpretation Comments Hgb (test code = Hgb) 7.3 14.0-18.0 [place] [address]-05-12 08:55:00 Test Item Value Reference Range Interpretation Comments Hct (test code = Hct) 22.2 42.0-54.0 [place] [address]-05-12 08:55:00 Test Item Value Reference Range Interpretation Comments MCV (test code = MCV) 79.0 80.0-94.0 [place] [address]-05-12 08:55:00 Test Item Value Reference Range Interpretation Comments MCH (test code = MCH) 26.1 pg 27.0-31.0 [place] [address]-05-12 08:55:00 Test Item Value Reference Range Interpretation Comments MCHC (test code = MCHC) 33.0 32.0-36.0 [place] [address]-05-12 08:55:00 Test Item Value Reference Range Interpretation Comments RDW (test code = RDW) 18.6 11.5-14.5 [place] [address]-05-12 08:55:00 Test Item Value Reference Range Interpretation Comments Platelet (test code = Platelet) 191 133-450 [place] [address]-05-12 08:55:00 Test Item Value Reference Range Interpretation Comments MPV (test code = MPV) 8.0 7.4-10.4 [place] [address]-05-12 08:55:00 Test Item Value Reference Range Interpretation Comments BUN (test code = BUN) 05-05 [place] [address]-05-12 08:55:00 Test Item Value Reference Range Interpretation Comments Creatinine Lvl (test code = Creatinine 0.84 0.50-1.40 Lvl) [place] [address]-05-12 08:55:00 Test Item Value Reference Range Interpretation Comments Sodium Lvl (test code = Sodium Lvl) 137 135-145 [place] [address]-05-12 08:55:00 Test Item Value Reference Range Interpretation Comments Phosphorus (test code = Phosphorus) 2.4 2.5-4.5 [place] [address]-05-12 08:55:00 Test Item Value Reference Range Interpretation Comments Magnesium Lvl (test code = Magnesium 1.6 1.8-2.4 Lvl) [place] [address]-05-12 08:55:00 Test Item Value Reference Range Interpretation Comments Glucose Lvl (test code = Glucose Lvl) 99 70-99 [place] [address]-05-12 08:55:00 Test Item Value Reference Range Interpretation Comments Potassium Lvl (test code = Potassium 4.2 3.5-5.1 Lvl) [place] [address]-05-12 08:55:00 Test Item Value Reference Range Interpretation Comments BUN (test code = BUN) 05-05 [place] [address]-05-12 08:55:00 Test Item Value Reference Range Interpretation Comments Creatinine Lvl (test code = Creatinine 0.84 0.50-1.40 Lvl) [place] [address]-05-12 08:55:00 Test Item Value Reference Range Interpretation Comments Sodium Lvl (test code = Sodium Lvl) 137 135-145 [place] [address]-05-12 08:55:00 Test Item Value Reference Range Interpretation Comments Potassium Lvl (test code = Potassium 4.2 3.5-5.1 Lvl) [place] [address]-05-12 08:55:00 Test Item Value Reference Range Interpretation Comments Chloride Lvl (test code = Chloride Lvl) 110 95-109 [place] [address]-05-12 08:55:00 Test Item Value Reference Range Interpretation Comments CO2 (test code = CO2) 23 24-32 [place] [address]-05-12 08:55:00 Test Item Value Reference Range Interpretation Comments Calcium Lvl (test code = Calcium Lvl) 9.2 8.5-10.5 [place] [address]-05-12 08:55:00 Test Item Value Reference Range Interpretation Comments AGAP (test code = AGAP) 8.2 10.0-20.0 [place] [address]-05-12 08:55:00 Test Item Value Reference Range Interpretation Comments eGFR (test code = eGFR) 96 [place] [address]-05-12 08:55:00 Test Item Value Reference Range Interpretation Comments Segs (test code = Segs) 67.5 45.0-75.0 [place] [address]-05-12 08:55:00 Test Item Value Reference Range Interpretation Comments Chloride Lvl (test code = Chloride Lvl) 110 95-109 [place] [address]-05-12 08:55:00 Test Item Value Reference Range Interpretation Comments Lymphocytes (test code = Lymphocytes) 14.9 20.0-40.0 [place] [address]-05-12 08:55:00 Test Item Value Reference Range Interpretation Comments Monocytes (test code = Monocytes) 12.8 2.0-12.0 [place] [address]-05-12 08:55:00 Test Item Value Reference Range Interpretation Comments Eosinophils (test code = 4.1 See_Comment [A utomated message] The Eosinophils) system which ge nerated this result tra nsmitted reference range : <=4.0. The reference r enrique was not used to int erpret this result as normal/abnormal . [place] [address]-05-12 08:55:00 Test Item Value Reference Range Interpretation Comments Basophils (test code = 0.7 See_Comment [Aut omated message] The Basophils) system which ge nerated this result tra nsmitted reference range : <=1.0. The reference r enrique was not used to int erpret this result as normal/abnormal . [place] [address]-05-12 08:55:00 Test Item Value Reference Range Interpretation Comments Neutrophils # (test code = Neutrophils 3.4 1.5-8.1 #) [place] [address]-05-12 08:55:00 Test Item Value Reference Range Interpretation Comments Lymphocytes # (test code = Lymphocytes 0.8 1.0-5.5 #) [place] [address]-05-12 08:55:00 Test Item Value Reference Range Interpretation Comments Monocytes # (test code 0.6 See_Comment [Aut omated message] The = Monocytes #) system which generated this result tra nsmitted reference range : <=0.8. The reference r enrique was not used to int erpret this result as normal/abnormal . [place] [address]-05-12 08:55:00 Test Item Value Reference Range Interpretation Comments Eosinophils # (test code 0.2 See_Comment [A utomated message] The = Eosinophils #) system whic h generated this result tra nsmitted reference range : <=0.5. The reference r enrique was not used to int erpret this result as normal/abnormal . [place] [address]-05-12 08:55:00 Test Item Value Reference Range Interpretation Comments WBC (test code = WBC) 5.0 3.7-10.4 [place] [address]-05-12 08:55:00 Test Item Value Reference Range Interpretation Comments RBC (test code = RBC) 2.82 4.70-6.10 [facility] 08:55:00 Test Item Value Reference Range Interpretation Comments CO2 (test code = CO2) 23 24-32 [place] [address]-05-12 08:55:00 Test Item Value Reference Range Interpretation Comments Hgb (test code = Hgb) 7.3 14.0-18.0 [place] [address]-05-12 08:55:00 Test Item Value Reference Range Interpretation Comments Hct (test code = Hct) 22.2 42.0-54.0 [place] [address]-05-12 08:55:00 Test Item Value Reference Range Interpretation Comments MCV (test code = MCV) 79.0 80.0-94.0 [place] [address]-05-12 08:55:00 Test Item Value Reference Range Interpretation Comments MCH (test code = MCH) 26.1 pg 27.0-31.0 [place] [address]-05-12 08:55:00 Test Item Value Reference Range Interpretation Comments MCHC (test code = MCHC) 33.0 32.0-36.0 [place] [address]-05-12 08:55:00 Test Item Value Reference Range Interpretation Comments RDW (test code = RDW) 18.6 11.5-14.5 [place] [address]-05-12 08:55:00 Test Item Value Reference Range Interpretation Comments Platelet (test code = Platelet) 191 133-450 [place] [address]-05-12 08:55:00 Test Item Value Reference Range Interpretation Comments MPV (test code = MPV) 8.0 7.4-10.4 [place] [address]-05-12 08:55:00 Test Item Value Reference Range Interpretation Comments Calcium Lvl (test code = Calcium Lvl) 9.2 8.5-10.5 [place] [address]-05-12 08:55:00 Test Item Value Reference Range Interpretation Comments AGAP (test code = AGAP) 8.2 10.0-20.0 [place] [address]-05-12 08:55:00 Test Item Value Reference Range Interpretation Comments eGFR (test code = eGFR) 96 [place] [address]-05-12 08:55:00 Test Item Value Reference Range Interpretation Comments Phosphorus (test code = Phosphorus) 2.4 2.5-4.5 [place] [address]-05-12 08:55:00 Test Item Value Reference Range Interpretation Comments Magnesium Lvl (test code = Magnesium 1.6 1.8-2.4 Lvl) [place] [address]-05-12 08:55:00 Test Item Value Reference Range Interpretation Comments Glucose Lvl (test code = Glucose Lvl) 99 70-99 [place] [address]-05-12 08:55:00 Test Item Value Reference Range Interpretation Comments Segs (test code = Segs) 67.5 45.0-75.0 [place] [address]-05-12 08:55:00 Test Item Value Reference Range Interpretation Comments BUN (test code = BUN) 10 7-22 [place] [address]-05-12 08:55:00 Test Item Value Reference Range Interpretation Comments Creatinine Lvl (test code = Creatinine 0.84 0.50-1.40 Lvl) [place] [id number] 08:55:00 Test Item Value Reference Range Interpretation Comments Sodium Lvl (test code = Sodium Lvl) 137 135-145 [place] [address]-05-12 08:55:00 Test Item Value Reference Range Interpretation Comments Potassium Lvl (test code = Potassium 4.2 3.5-5.1 Lvl) [place] [address]-05-12 08:55:00 Test Item Value Reference Range Interpretation Comments Chloride Lvl (test code = Chloride Lvl) 110 95-109 [place] [id number] 08:55:00 Test Item Value Reference Range Interpretation Comments CO2 (test code = CO2) 23 24-32 [place] [address]-05-12 08:55:00 Test Item Value Reference Range Interpretation Comments Calcium Lvl (test code = Calcium Lvl) 9.2 8.5-10.5 [place] [address]-05-12 08:55:00 Test Item Value Reference Range Interpretation Comments AGAP (test code = AGAP) 8.2 10.0-20.0 [place] [facility]6635-92-34 08:55:00 Test Item Value Reference Range Interpretation Comments eGFR (test code = eGFR) 96 [facility]XM[facility]19[facility]-28 08:55:00 Test Item Value Reference Range Interpretation Comments Segs (test code = Segs) 67.5 45.0-75.0 [place] [address]-05-12 08:55:00 Test Item Value Reference Range Interpretation Comments Lymphocytes (test code = Lymphocytes) 14.9 20.0-40.0 [place] [address]-05-12 08:55:00 Test Item Value Reference Range Interpretation Comments Lymphocytes (test code = Lymphocytes) 14.9 20.0-40.0 [place] [address]-05-12 08:55:00 Test Item Value Reference Range Interpretation Comments Monocytes (test code = Monocytes) 12.8 2.0-12.0 [place] [address]-05-12 08:55:00 Test Item Value Reference Range Interpretation Comments Eosinophils (test code = 4.1 See_Comment [A utomated message] The Eosinophils) system which ge nerated this result tra nsmitted reference range : <=4.0. The reference r enrique was not used to int erpret this result as normal/abnormal . [place] [address]-05-12 08:55:00 Test Item Value Reference Range Interpretation Comments Basophils (test code = 0.7 See_Comment [Aut omated message] The Basophils) system which ge nerated this result tra nsmitted reference range : <=1.0. The reference r enrique was not used to int erpret this result as normal/abnormal . [address]05-12 08:55:00 Test Item Value Reference Range Interpretation Comments Neutrophils # (test code = Neutrophils 3.4 1.5-8.1 #) [address]05-12 08:55:00 Test Item Value Reference Range Interpretation Comments Lymphocytes # (test code = Lymphocytes 0.8 1.0-5.5 #) [address]05-12 08:55:00 Test Item Value Reference Range Interpretation Comments Monocytes # (test code 0.6 See_Comment [Aut omated message] The = Monocytes #) system which generated this result tra nsmitted reference range : <=0.8. The reference r enrique was not used to int erpret this result as normal/abnormal . [place] [address]-05-12 08:55:00 Test Item Value Reference Range Interpretation Comments Eosinophils # (test code 0.2 See_Comment [A utomated message] The = Eosinophils #) system whic h generated this result tra nsmitted reference range : <=0.5. The reference r enrique was not used to int erpret this result as normal/abnormal . [place] [address]-05-12 08:55:00 Test Item Value Reference Range Interpretation Comments WBC (test code = WBC) 5.0 3.7-10.4 [place] [address]-05-12 08:55:00 Test Item Value Reference Range Interpretation Comments RBC (test code = RBC) 2.82 4.70-6.10 [place] [address]-05-12 08:55:00 Test Item Value Reference Range Interpretation Comments Monocytes (test code = Monocytes) 12.8 2.0-12.0 [place] [address]-05-12 08:55:00 Test Item Value Reference Range Interpretation Comments Hgb (test code = Hgb) 7.3 14.0-18.0 [place] [address]-05-12 08:55:00 Test Item Value Reference Range Interpretation Comments Hct (test code = Hct) 22.2 42.0-54.0 [place] [address]-05-12 08:55:00 Test Item Value Reference Range Interpretation Comments MCV (test code = MCV) 79.0 80.0-94.0 [place] [address]-05-12 08:55:00 Test Item Value Reference Range Interpretation Comments MCH (test code = MCH) 26.1 pg 27.0-31.0 [place] [address]-05-12 08:55:00 Test Item Value Reference Range Interpretation Comments MCHC (test code = MCHC) 33.0 32.0-36.0 [place] [address]-05-12 08:55:00 Test Item Value Reference Range Interpretation Comments RDW (test code = RDW) 18.6 11.5-14.5 [place] [address]-05-12 08:55:00 Test Item Value Reference Range Interpretation Comments Platelet (test code = Platelet) 191 133-450 [place] [address]-05-12 08:55:00 Test Item Value Reference Range Interpretation Comments MPV (test code = MPV) 8.0 7.4-10.4 [place] [address]-05-12 08:55:00 Test Item Value Reference Range Interpretation Comments Eosinophils (test code = 4.1 See_Comment [A utomated message] The Eosinophils) system which ge nerated this result tra nsmitted reference range : <=4.0. The reference r enrique was not used to int erpret this result as normal/abnormal . [place] [address]-05-12 08:55:00 Test Item Value Reference Range Interpretation Comments Basophils (test code = 0.7 See_Comment [Aut omated message] The Basophils) system which ge nerated this result tra nsmitted reference range : <=1.0. The reference r enrique was not used to int erpret this result as normal/abnormal . [place] [address]-05-12 08:55:00 Test Item Value Reference Range Interpretation Comments Neutrophils # (test code = Neutrophils 3.4 1.5-8.1 #) [place] [address]-05-12 08:55:00 Test Item Value Reference Range Interpretation Comments Lymphocytes # (test code = Lymphocytes 0.8 1.0-5.5 #) [place] [address]-05-12 08:55:00 Test Item Value Reference Range Interpretation Comments Monocytes # (test code 0.6 See_Comment [Aut omated message] The = Monocytes #) system which generated this result tra nsmitted reference range : <=0.8. The reference r enrique was not used to int erpret this result as normal/abnormal . [place] [address]-05-12 08:55:00 Test Item Value Reference Range Interpretation Comments Eosinophils # (test code 0.2 See_Comment [A utomated message] The = Eosinophils #) system whic h generated this result tra nsmitted reference range : <=0.5. The reference r enrique was not used to int erpret this result as normal/abnormal . [place] [address]-05-12 08:55:00 Test Item Value Reference Range Interpretation Comments WBC (test code = WBC) 5.0 3.7-10.4 [place] [address]-05-12 08:55:00 Test Item Value Reference Range Interpretation Comments RBC (test code = RBC) 2.82 4.70-6.10 [place] [address]-05-12 08:55:00 Test Item Value Reference Range Interpretation Comments Hgb (test code = Hgb) 7.3 14.0-18.0 [place] [address]-05-12 08:55:00 Test Item Value Reference Range Interpretation Comments Hct (test code = Hct) 22.2 42.0-54.0 [address]05-12 08:55:00 Test Item Value Reference Range Interpretation Comments MCV (test code = MCV) 79.0 80.0-94.0 [address]05-12 08:55:00 Test Item Value Reference Range Interpretation Comments MCH (test code = MCH) 26.1 pg 27.0-31.0 [place] [address]-05-12 08:55:00 Test Item Value Reference Range Interpretation Comments MCHC (test code = MCHC) 33.0 32.0-36.0 [place] [address]-05-12 08:55:00 Test Item Value Reference Range Interpretation Comments RDW (test code = RDW) 18.6 11.5-14.5 [place] [address]-05-12 08:55:00 Test Item Value Reference Range Interpretation Comments Platelet (test code = Platelet) 191 133-450 [place] [address]-05-12 08:55:00 Test Item Value Reference Range Interpretation Comments MPV (test code = MPV) 8.0 7.4-10.4 [place] [address]-05-12 08:55:00 Test Item Value Reference Range Interpretation Comments Phosphorus (test code = Phosphorus) 2.4 2.5-4.5 [place] [address]-05-12 08:55:00 Test Item Value Reference Range Interpretation Comments Magnesium Lvl (test code = Magnesium 1.6 1.8-2.4 Lvl) [place] [address]-05-12 08:55:00 Test Item Value Reference Range Interpretation Comments Glucose Lvl (test code = Glucose Lvl) 99 70-99 [place] [address]-05-12 08:55:00 Test Item Value Reference Range Interpretation Comments BUN (test code = BUN) 10 7-22 [place] [address]-05-12 08:55:00 Test Item Value Reference Range Interpretation Comments Creatinine Lvl (test code = Creatinine 0.84 0.50-1.40 Lvl) [place] [address]-05-12 08:55:00 Test Item Value Reference Range Interpretation Comments Sodium Lvl (test code = Sodium Lvl) 137 135-145 [place] [address]-05-12 08:55:00 Test Item Value Reference Range Interpretation Comments Potassium Lvl (test code = Potassium 4.2 3.5-5.1 Lvl) [place] [address]-05-12 08:55:00 Test Item Value Reference Range Interpretation Comments Chloride Lvl (test code = Chloride Lvl) 110 95-109 [place] [address]-05-12 08:55:00 Test Item Value Reference Range Interpretation Comments CO2 (test code = CO2) 23 24-32 [place] [address]-05-12 08:55:00 Test Item Value Reference Range Interpretation Comments Calcium Lvl (test code = Calcium Lvl) 9.2 8.5-10.5 [place] [address]-05-12 08:55:00 Test Item Value Reference Range Interpretation Comments AGAP (test code = AGAP) 8.2 10.0-20.0 [place] [address]-05-12 08:55:00 Test Item Value Reference Range Interpretation Comments eGFR (test code = eGFR) 96 [place] [address]-05-12 08:55:00 Test Item Value Reference Range Interpretation Comments Segs (test code = Segs) 67.5 45.0-75.0 [place] [address]-05-12 08:55:00 Test Item Value Reference Range Interpretation Comments Lymphocytes (test code = Lymphocytes) 14.9 20.0-40.0 [place] [address]-05-12 08:55:00 Test Item Value Reference Range Interpretation Comments Monocytes (test code = Monocytes) 12.8 2.0-12.0 [place] [address]-05-12 08:55:00 Test Item Value Reference Range Interpretation Comments Eosinophils (test code = 4.1 See_Comment [A utomated message] The Eosinophils) system which ge nerated this result tra nsmitted reference range : <=4.0. The reference r enrique was not used to int erpret this result as normal/abnormal . [place] [address]-05-12 08:55:00 Test Item Value Reference Range Interpretation Comments Basophils (test code = 0.7 See_Comment [Aut omated message] The Basophils) system which ge nerated this result tra nsmitted reference range : <=1.0. The reference r enrique was not used to int erpret this result as normal/abnormal . [place] [address]-05-12 08:55:00 Test Item Value Reference Range Interpretation Comments Neutrophils # (test code = Neutrophils 3.4 1.5-8.1 #) [place] [address]-05-12 08:55:00 Test Item Value Reference Range Interpretation Comments Lymphocytes # (test code = Lymphocytes 0.8 1.0-5.5 #) [place] [address]-05-12 08:55:00 Test Item Value Reference Range Interpretation Comments Monocytes # (test code 0.6 See_Comment [Aut omated message] The = Monocytes #) system which generated this result tra nsmitted reference range : <=0.8. The reference r enrique was not used to int erpret this result as normal/abnormal . [facility] 08:55:00 Test Item Value Reference Range Interpretation Comments Eosinophils # (test code 0.2 See_Comment [A utomated message] The = Eosinophils #) system whic h generated this result tra nsmitted reference range : <=0.5. The reference r enrique was not used to int erpret this result as normal/abnormal . [facility]wezmlsPQRAVUNNID2846-16-56 08:55:00 Test Item Value Reference Range Interpretation Comments WBC (test code = WBC) 5.0 3.7-10.4 [place] [address]-05-12 08:55:00 Test Item Value Reference Range Interpretation Comments RBC (test code = RBC) 2.82 4.70-6.10 [place] [address]-05-12 08:55:00 Test Item Value Reference Range Interpretation Comments Hgb (test code = Hgb) 7.3 14.0-18.0 [place] [address]-05-12 08:55:00 Test Item Value Reference Range Interpretation Comments Hct (test code = Hct) 22.2 42.0-54.0 [place] [address]-05-12 08:55:00 Test Item Value Reference Range Interpretation Comments MCV (test code = MCV) 79.0 80.0-94.0 [place] [address]-05-12 08:55:00 Test Item Value Reference Range Interpretation Comments MCH (test code = MCH) 26.1 pg 27.0-31.0 [place] [address]-05-12 08:55:00 Test Item Value Reference Range Interpretation Comments MCHC (test code = MCHC) 33.0 32.0-36.0 [place] [address]-05-12 08:55:00 Test Item Value Reference Range Interpretation Comments RDW (test code = RDW) 18.6 11.5-14.5 [place] [address]-05-12 08:55:00 Test Item Value Reference Range Interpretation Comments Platelet (test code = Platelet) 191 133-450 [place] [address]-05-12 08:55:00 Test Item Value Reference Range Interpretation Comments MPV (test code = MPV) 8.0 7.4-10.4 [place] [address]-05-12 08:55:00 Test Item Value Reference Range Interpretation Comments Phosphorus (test code = Phosphorus) 2.4 2.5-4.5 [place] [address]-05-12 08:55:00 Test Item Value Reference Range Interpretation Comments Magnesium Lvl (test code = Magnesium 1.6 1.8-2.4 Lvl) [place] [address]-05-12 08:55:00 Test Item Value Reference Range Interpretation Comments Glucose Lvl (test code = Glucose Lvl) 99 70-99 [place] [address]-05-12 08:55:00 Test Item Value Reference Range Interpretation Comments BUN (test code = BUN) 10 7-22 [place] [address]-05-12 08:55:00 Test Item Value Reference Range Interpretation Comments Creatinine Lvl (test code = Creatinine 0.84 0.50-1.40 Lvl) [place] [address]-05-12 08:55:00 Test Item Value Reference Range Interpretation Comments Sodium Lvl (test code = Sodium Lvl) 137 135-145 [place] [address]-05-12 08:55:00 Test Item Value Reference Range Interpretation Comments Potassium Lvl (test code = Potassium 4.2 3.5-5.1 Lvl) [place] [address]-05-12 08:55:00 Test Item Value Reference Range Interpretation Comments Chloride Lvl (test code = Chloride Lvl) 110 95-109 [place] [address]-05-12 08:55:00 Test Item Value Reference Range Interpretation Comments CO2 (test code = CO2) 23 24-32 [place] [address]-05-12 08:55:00 Test Item Value Reference Range Interpretation Comments Calcium Lvl (test code = Calcium Lvl) 9.2 8.5-10.5 [place] [address]-05-12 08:55:00 Test Item Value Reference Range Interpretation Comments AGAP (test code = AGAP) 8.2 10.0-20.0 [facility]XRH[facility]OBGU[facility]46[facility]45 08:55:00 Test Item Value Reference Range Interpretation Comments eGFR (test code = eGFR) 96 [place] [address]-05-12 08:55:00 Test Item Value Reference Range Interpretation Comments Segs (test code = Segs) 67.5 45.0-75.0 [place] [address]-05-12 08:55:00 Test Item Value Reference Range Interpretation Comments Lymphocytes (test code = Lymphocytes) 14.9 20.0-40.0 [place] [address]-05-12 08:55:00 Test Item Value Reference Range Interpretation Comments Monocytes (test code = Monocytes) 12.8 2.0-12.0 [address]05-12 08:55:00 Test Item Value Reference Range Interpretation Comments Eosinophils (test code = 4.1 See_Comment [A utomated message] The Eosinophils) system which ge nerated this result tra nsmitted reference range : <=4.0. The reference r enrique was not used to int erpret this result as normal/abnormal . [place] [address]-05-12 08:55:00 Test Item Value Reference Range Interpretation Comments Basophils (test code = 0.7 See_Comment [Aut omated message] The Basophils) system which ge nerated this result tra nsmitted reference range : <=1.0. The reference r enrique was not used to int erpret this result as normal/abnormal . [place] [address]-05-12 08:55:00 Test Item Value Reference Range Interpretation Comments Neutrophils # (test code = Neutrophils 3.4 1.5-8.1 #) [place] [address]-05-12 08:55:00 Test Item Value Reference Range Interpretation Comments Lymphocytes # (test code = Lymphocytes 0.8 1.0-5.5 #) [address]05-12 08:55:00 Test Item Value Reference Range Interpretation Comments Monocytes # (test code 0.6 See_Comment [Aut omated message] The = Monocytes #) system which generated this result tra nsmitted reference range : <=0.8. The reference r enrique was not used to int erpret this result as normal/abnormal . [place] [address]-05-12 08:55:00 Test Item Value Reference Range Interpretation Comments Eosinophils # (test code 0.2 See_Comment [A utomated message] The = Eosinophils #) system whic h generated this result tra nsmitted reference range : <=0.5. The reference r enrique was not used to int erpret this result as normal/abnormal . [place] [address]-05-12 08:55:00 Test Item Value Reference Range Interpretation Comments WBC (test code = WBC) 5.0 3.7-10.4 [place] [address]-05-12 08:55:00 Test Item Value Reference Range Interpretation Comments RBC (test code = RBC) 2.82 4.70-6.10 [place] [address]-05-12 08:55:00 Test Item Value Reference Range Interpretation Comments Hgb (test code = Hgb) 7.3 14.0-18.0 [place] [address]-05-12 08:55:00 Test Item Value Reference Range Interpretation Comments Hct (test code = Hct) 22.2 42.0-54.0 [place] [address]-05-12 08:55:00 Test Item Value Reference Range Interpretation Comments MCV (test code = MCV) 79.0 80.0-94.0 [place] [address]-05-12 08:55:00 Test Item Value Reference Range Interpretation Comments MCH (test code = MCH) 26.1 pg 27.0-31.0 [place] [address]-05-12 08:55:00 Test Item Value Reference Range Interpretation Comments MCHC (test code = MCHC) 33.0 32.0-36.0 [place] [address]-05-12 08:55:00 Test Item Value Reference Range Interpretation Comments RDW (test code = RDW) 18.6 11.5-14.5 [place] [address]-05-12 08:55:00 Test Item Value Reference Range Interpretation Comments Platelet (test code = Platelet) 191 133-450 [place] [address]-05-12 08:55:00 Test Item Value Reference Range Interpretation Comments MPV (test code = MPV) 8.0 7.4-10.4 [facility]ElcevnhQHLTAXCXW5277-20-00 08:55:00 Test Item Value Reference Range Interpretation Comments Phosphorus (test code = Phosphorus) 2.4 2.5-4.5 [place] [address]-05-12 08:55:00 Test Item Value Reference Range Interpretation Comments Magnesium Lvl (test code = Magnesium 1.6 1.8-2.4 Lvl) [place] [address]-05-12 08:55:00 Test Item Value Reference Range Interpretation Comments Glucose Lvl (test code = Glucose Lvl) 99 70-99 [place] [address]-05-12 08:55:00 Test Item Value Reference Range Interpretation Comments Phosphorus (test code = Phosphorus) 2.4 2.5-4.5 [place] [address]-05-12 08:55:00 Test Item Value Reference Range Interpretation Comments BUN (test code = BUN) 10 7-22 [place] [address]-05-12 08:55:00 Test Item Value Reference Range Interpretation Comments Creatinine Lvl (test code = Creatinine 0.84 0.50-1.40 Lvl) [place] [address]-05-12 08:55:00 Test Item Value Reference Range Interpretation Comments Sodium Lvl (test code = Sodium Lvl) 137 135-145 [place] [address]-05-12 08:55:00 Test Item Value Reference Range Interpretation Comments Potassium Lvl (test code = Potassium 4.2 3.5-5.1 Lvl) [facility] Test Item Value Reference Range Interpretation Comments Chloride Lvl (test code = Chloride Lvl) 110 95-109 [place]3893-05-12 08:55:00 Test Item Value Reference Range Interpretation Comments CO2 (test code = CO2) 23 24-32 [place] [address]-05-12 08:55:00 Test Item Value Reference Range Interpretation Comments Calcium Lvl (test code = Calcium Lvl) 9.2 8.5-10.5 [place] [address]-05-12 08:55:00 Test Item Value Reference Range Interpretation Comments AGAP (test code = AGAP) 8.2 10.0-20.0 [place] [address]-05-12 08:55:00 Test Item Value Reference Range Interpretation Comments eGFR (test code = eGFR) 96 [place] 363893-05-12 08:55:00 Test Item Value Reference Range Interpretation Comments Phosphorus (test code = Phosphorus) 2.4 2.5-4.5 [place] [address]-05-12 08:55:00 Test Item Value Reference Range Interpretation Comments Magnesium Lvl (test code = Magnesium 1.6 1.8-2.4 Lvl) [facility]Zoom[facility]rJAKE[facility]ITI0905[facility]13[facility]:55:00 Test Item Value Reference Range Interpretation Comments Glucose Lvl (test code = Glucose Lvl) 99 70-99 [place] [address]-05-12 08:55:00 Test Item Value Reference Range Interpretation Comments BUN (test code = BUN) 10 7-22 [place] [address]-05-12 08:55:00 Test Item Value Reference Range Interpretation Comments Creatinine Lvl (test code = Creatinine 0.84 0.50-1.40 Lvl) [facility]LkmgxidJRHIODTYF2761-25-52 08:55:00 Test Item Value Reference Range Interpretation Comments Sodium Lvl (test code = Sodium Lvl) 137 135-145 [place] [address]-05-12 08:55:00 Test Item Value Reference Range Interpretation Comments Potassium Lvl (test code = Potassium 4.2 3.5-5.1 Lvl) [facility]fojLWXPTDIAB4711-26-08 08:55:00 Test Item Value Reference Range Interpretation Comments Chloride Lvl (test code = Chloride Lvl) 110 95-109 [facility]jxjjijWEDJPAGYPV0872-03-43 08:55:00 Test Item Value Reference Range Interpretation Comments Segs (test code = Segs) 67.5 45.0-75.0 [place] [address]-05-12 08:55:00 Test Item Value Reference Range Interpretation Comments CO2 (test code = CO2) 23 24-32 [place] [address]-05-12 08:55:00 Test Item Value Reference Range Interpretation Comments Calcium Lvl (test code = Calcium Lvl) 9.2 8.5-10.5 [place] [address]-05-12 08:55:00 Test Item Value Reference Range Interpretation Comments AGAP (test code = AGAP) 8.2 10.0-20.0 [place] [address]-05-12 08:55:00 Test Item Value Reference Range Interpretation Comments eGFR (test code = eGFR) 96 [facility]daptxvTDVBQKJDWA0152-14-50 08:55:00 Test Item Value Reference Range Interpretation Comments Segs (test code = Segs) 67.5 45.0-75.0 [place] [address]-05-12 08:55:00 Test Item Value Reference Range Interpretation Comments Lymphocytes (test code = Lymphocytes) 14.9 20.0-40.0 [place] [address]-05-12 08:55:00 Test Item Value Reference Range Interpretation Comments Monocytes (test code = Monocytes) 12.8 2.0-12.0 [place] [address]-05-12 08:55:00 Test Item Value Reference Range Interpretation Comments Eosinophils (test code = 4.1 See_Comment [A utomated message] The Eosinophils) system which ge nerated this result tra nsmitted reference range : <=4.0. The reference r enrique was not used to int erpret this result as normal/abnormal . [place] [address]-05-12 08:55:00 Test Item Value Reference Range Interpretation Comments Basophils (test code = 0.7 See_Comment [Aut omated message] The Basophils) system which ge nerated this result tra nsmitted reference range : <=1.0. The reference r enrique was not used to int erpret this result as normal/abnormal . [place] [address]-05-12 08:55:00 Test Item Value Reference Range Interpretation Comments Neutrophils # (test code = Neutrophils 3.4 1.5-8.1 #) [facility]bg[facility]KWHK[facility]JD4404-50-16 08:55:00 Test Item Value Reference Range Interpretation Comments Magnesium Lvl (test code = Magnesium 1.6 1.8-2.4 Lvl) [place] [address]-05-12 08:55:00 Test Item Value Reference Range Interpretation Comments Lymphocytes # (test code = Lymphocytes 0.8 1.0-5.5 #) [place] [address]-05-12 08:55:00 Test Item Value Reference Range Interpretation Comments Monocytes # (test code 0.6 See_Comment [Aut omated message] The = Monocytes #) system which generated this result tra nsmitted reference range : <=0.8. The reference r enrique was not used to int erpret this result as normal/abnormal . [place] [address]-05-12 08:55:00 Test Item Value Reference Range Interpretation Comments Eosinophils # (test code 0.2 See_Comment [A utomated message] The = Eosinophils #) system whic h generated this result tra nsmitted reference range : <=0.5. The reference r enrique was not used to int erpret this result as normal/abnormal . [place] [address]-05-12 08:55:00 Test Item Value Reference Range Interpretation Comments WBC (test code = WBC) 5.0 3.7-10.4 [place] [address]-05-12 08:55:00 Test Item Value Reference Range Interpretation Comments RBC (test code = RBC) 2.82 4.70-6.10 [place] [address]-05-12 08:55:00 Test Item Value Reference Range Interpretation Comments Hgb (test code = Hgb) 7.3 14.0-18.0 [place] [address]-05-12 08:55:00 Test Item Value Reference Range Interpretation Comments Hct (test code = Hct) 22.2 42.0-54.0 [place] [address]-05-12 08:55:00 Test Item Value Reference Range Interpretation Comments MCV (test code = MCV) 79.0 80.0-94.0 [place] [address]-05-12 08:55:00 Test Item Value Reference Range Interpretation Comments MCH (test code = MCH) 26.1 pg 27.0-31.0 [place] [address]-05-12 08:55:00 Test Item Value Reference Range Interpretation Comments MCHC (test code = MCHC) 33.0 32.0-36.0 [place] [address]-05-12 08:55:00 Test Item Value Reference Range Interpretation Comments Lymphocytes (test code = Lymphocytes) 14.9 20.0-40.0 [place] [address]-05-12 08:55:00 Test Item Value Reference Range Interpretation Comments RDW (test code = RDW) 18.6 11.5-14.5 [place] [address]-05-12 08:55:00 Test Item Value Reference Range Interpretation Comments Platelet (test code = Platelet) 191 133-450 [place] [address]-05-12 08:55:00 Test Item Value Reference Range Interpretation Comments MPV (test code = MPV) 8.0 7.4-10.[address] [facility] HospitalWewepppCOIUSK3708-33-35 21:08:36 Test Item Value Reference Range Interpretation [...] than right chest and upper abdominal davis. [facility] HospitalZhpxqfnGNDWHT7031-57-18 21:08:36 Test Item Value Reference Range Interpretation [...] than right chest and upper abdominal davis. [facility] HospitalVfzjhvxETOTRW8404-76-85 21:08:36 Test Item Value Reference Range Interpretation [...] than right chest and upper abdominal davis. [facility]AlgshxzTKEZPC2436-09-03 21:08:36 Test Item Value Reference Range Interpretation [...] than right chest and upper abdominal davis. [facility] HospitalWwokhfvFLTXNB5101-93-96 21:08:36 Test Item Value Reference Range Interpretation [...] than right chest and upper abdominal davis. [facility] HospitalQzakczdXRXNPK3193-98-16 21:08:36 Test Item Value Reference Range Interpretation [...] than right chest and upper abdominal davis. [facility] HospitalXoxhjyjHUDTYO0152-09-32 21:08:36 Test Item Value Reference Range Interpretation [...] than right chest and upper abdominal davis. [facility] [employer] [facility] [id number] 12:15:00 Test Item Value Reference Range Interpretation Comments ABO/Rh (test code = ABO/Rh) [facility] [id number] 12:15:00 Test Item Value Reference Range Interpretation Comments Antibody Scrn (test Negative (02/19/23 7:15 code = Antibody Scrn) AM) [facility] [id number] 12:15:00 Test Item Value Reference Range Interpretation Comments ABO/Rh (test code = ABO/Rh) A [facility] [employer] [id number] 12:15:00 Test Item Value Reference Range Interpretation Comments Antibody Scrn (test Negative (02/19/23 7:15 code = Antibody Scrn) AM) [facility] [id number] 12:15:00 Test Item Value Reference Range Interpretation Comments ABO/Rh (test code = ABO/Rh) [facility] [id number] 12:15:00 Test Item Value Reference Range Interpretation Comments Antibody Scrn (test Negative (02/19/23 7:15 code = Antibody Scrn) AM) [facility] CareChemi[facility] [id number] 12:15:00 Test Item Value Reference Range Interpretation Comments ABO/Rh (test code = ABO/Rh) A [facility] [employer] [id number] 12:15:00 Test Item Value Reference Range Interpretation Comments Antibody Scrn (test Negative (02/19/23 7:15 code = Antibody Scrn) AM) [facility] [id number] 12:15:00 Test Item Value Reference Range Interpretation Comments ABO/Rh (test code = ABO/Rh) A POS [facility] [id number] 12:15:00 Test Item Value Reference Range Interpretation Comments Antibody Scrn (test Negative (02/19/23 7:15 code = Antibody Scrn) AM) [facility] [id number] 12:15:00 Test Item Value Reference Range Interpretation Comments ABO/Rh (test code = ABO/Rh) A [facility] [id number] 12:15:00 Test Item Value Reference Range Interpretation Comments Antibody Scrn (test Negative (02/19/23 7:15 code = Antibody Scrn) AM) [facility]2023-05-08 12:15:00 Test Item Value Reference Range Interpretation Comments ABO/Rh (test code = ABO/Rh) A [facility] [id number] 12:15:00 Test Item Value Reference Range Interpretation Comments Antibody Scrn (test Negative (02/19/23 7:15 code = Antibody Scrn) AM) [facility]2023-05-08 12:06:00 Test Item Value Reference Range Interpretation Comments Glucose POC (test code = Glucose POC) 98 70-99 [facility]2023-05-08 12:06:00 Test Item Value Reference Range Interpretation Comments Glucose POC (test code = Glucose POC) 98 70-99 [facility]2023-05-08 12:06:00 Test Item Value Reference Range Interpretation Comments Glucose POC (test code = Glucose POC) 98 70-99 [facility]2023-05-08 12:06:00 Test Item Value Reference Range Interpretation Comments Glucose POC (test code = Glucose POC) 98 70-99 [facility]2023-05-08 12:06:00 Test Item Value Reference Range Interpretation Comments Glucose POC (test code = Glucose POC) 98 70-99 [facility]2023-05-08 12:06:00 Test Item Value Reference Range Interpretation Comments Glucose POC (test code = Glucose POC) 98 70-99 [facility]2023-05-08 12:06:00 Test Item Value Reference Range Interpretation Comments Glucose POC (test code = Glucose POC) 98 70-99 [facility] NortheastWfaasdvBIOCEHGAE4915-25-97 21:03:00 Test Item Value Reference Range Interpretation Comments AST (test code = AST) 15 See_Comment [Auto mated message] The system which ge nerated this result transmit justice reference range : <=37. The reference range was not used to interpr et this result as jabari l/abnormal. [facility] NortheastDjeclvzYVXHXLBWS1326-83-88 21:03:00 Test Item Value Reference Range Interpretation Comments Alk Phos (test code = Alk Phos) 85 39-136 [facility]mUFWLPEIIR4030-[facility]-28 21:03:00 Test Item Value Reference Range Interpretation Comments Bili Total (test code = Bili Total) 0.4 0.2-1.3 [facility] NortheastWvigwigIIWAJEEQW2447-39-10 21:03:00 Test Item Value Reference Range Interpretation Comments B/C Ratio (test code = B/C Ratio) 15 1 6-25 [facility] NortheastJupaczmDIURXVWQJ4882-79-44 21:03:00 Test Item Value Reference Range Interpretation Comments Globulin (test code = Globulin) 3.8 2.7-4.2 [facility] NortheastAaduebxJRXPMTROW8358-58-73 21:03:00 Test Item Value Reference Range Interpretation Comments A/G Ratio (test code = A/G Ratio) 0.8 1 0.7-1.6 [facility] NortheastJsunhkmSTLCMNRFVY8407-97-47 21:03:00 Test Item Value Reference Range Interpretation Comments PT (test code = PT) 12.5 s 12.0-14.7 [facility] NortheastKzotfsdOEWOBITDPY4045-68-32 21:03:00 Test Item Value Reference Range Interpretation Comments PTT (test code = PTT) 25.6 s 22.9-35.8 [facility] NortheastYhahmpaIYHZTPMTDV5618-99-28 21:03:00 Test Item Value Reference Range Interpretation Comments INR (test code = INR) 0.93 1 0.87-1.13 [facility] NortheastEwgsozoEDWQFGFPLR2417-29-59 21:03:00 Test Item Value Reference Range Interpretation Comments Basophils # (test code 0.1 See_Comment [Aut omated message] The = Basophils #) system which generated this result tra nsmitted reference range : <=0.2. The reference r enrique was not used to int erpret this result as normal/abnormal . [facility]riohnCSLDEUDEF7668-70-76 21:03:00 Test Item Value Reference Range Interpretation Comments Total Protein (test code = Total 6.9 6.4-8.4 Protein) [facility] NortheastEnoectiQMYXUOSUY6469-20-10 21:03:00 Test Item Value Reference Range Interpretation Comments Albumin Lvl (test code = Albumin Lvl) 3.1 3.5-5.0 [facility] NortheastQerzablUUEUONOFW9246-92-89 21:03:00 Test Item Value Reference Range Interpretation Comments ALT (test code = ALT) 15 See_Comment [Auto mated message] The system which ge nerated this result transmit justice reference range : <=65. The reference range was not used to interpr et this result as jabari l/abnormal. [facility] NortheastSqvmaguGGHKCKNPY9969-56-85 21:03:00 Test Item Value Reference Range Interpretation Comments AST (test code = AST) 15 See_Comment [Auto mated message] The system which ge nerated this result transmit justice reference range : <=37. The reference range was not used to interpr et this result as jabari l/abnormal. [facility] TifysmzSKTNTDMEY5524-52-58 21:03:00 Test Item Value Reference Range Interpretation Comments Alk Phos (test code = Alk Phos) 85 39-136 [facility] NortheastXxxdlboKFFSUPJJN2209-89-08 21:03:00 Test Item Value Reference Range Interpretation Comments Bili Total (test code = Bili Total) 0.4 0.2-1.3 [facility] NortheastHqdiqtaMIDKBRXMK5786-52-12 21:03:00 Test Item Value Reference Range Interpretation Comments B/C Ratio (test code = B/C Ratio) 15 1 6-25 [facility] NortheastSneuddyQOYQWBFPY2594-74-77 21:03:00 Test Item Value Reference Range Interpretation Comments Globulin (test code = Globulin) 3.8 2.7-4.2 [facility] NortheastGhlfnunMEINPTCMU4387-75-90 21:03:00 Test Item Value Reference Range Interpretation Comments A/G Ratio (test code = A/G Ratio) 0.8 1 0.7-1.6 [facility] NortheastFnvavmyZAMFFLIUDU1762-41-38 21:03:00 Test Item Value Reference Range Interpretation Comments PT (test code = PT) 12.5 s 12.0-14.7 [facility] NortheastOisonqrKJDAREYEAD3029-83-10 21:03:00 Test Item Value Reference Range Interpretation Comments PTT (test code = PTT) 25.6 s 22.9-35.8 [facility] NortheastVkmtaetUJVOHUZUZX5493-91-38 21:03:00 Test Item Value Reference Range Interpretation Comments INR (test code = INR) 0.93 1 0.87-1.13 [facility]kgdzsbYJLFPFPEXQ5998-39-33 21:03:00 Test Item Value Reference Range Interpretation Comments Basophils # (test code 0.1 See_Comment [Aut omated message] The = Basophils #) system which generated this result tra nsmitted reference range : <=0.2. The reference r enrique was not used to int erpret this result as normal/abnormal . [facility] NortheastHphwahiVEMQXQJLR5961-71-62 21:03:00 Test Item Value Reference Range Interpretation Comments Total Protein (test code = Total 6.9 6.4-8.4 Protein) [facility]JetwhspLNUXDIFLT5677-19-84 21:03:00 Test Item Value Reference Range Interpretation Comments Albumin Lvl (test code = Albumin Lvl) 3.1 3.5-5.0 [facility] NortheastPljtugnDDXOLPGKR7977-16-52 21:03:00 Test Item Value Reference Range Interpretation Comments ALT (test code = ALT) 15 See_Comment [Auto mated message] The system which ge nerated this result transmit justice reference range : <=65. The reference range was not used to interpr et this result as jabari l/abnormal. [facility] NortheastVzejiyjLNIAQRWRO5477-47-14 21:03:00 Test Item Value Reference Range Interpretation Comments AST (test code = AST) 15 See_Comment [Auto mated message] The system which ge nerated this result transmit justice reference range : <=37. The reference range was not used to interpr et this result as jabari l/abnormal. [facility] NortheastFcvxsfkXUOPEMAWY4919-85-06 21:03:00 Test Item Value Reference Range Interpretation Comments Alk Phos (test code = Alk Phos) 85 39-136 [facility] NortheastHdxomqiCGBYQQNKZ9906-95-46 21:03:00 Test Item Value Reference Range Interpretation Comments Bili Total (test code = Bili Total) 0.4 0.2-1.3 [facility] NortheastApugwtcRCEIYZZVF2611-02-94 21:03:00 Test Item Value Reference Range Interpretation Comments B/C Ratio (test code = B/C Ratio) 15 1 6-25 [place] [address]-04-28 21:03:00 Test Item Value Reference Range Interpretation Comments Globulin (test code = Globulin) 3.8 2.7-4.2 [place] [address]-04-28 21:03:00 Test Item Value Reference Range Interpretation Comments A/G Ratio (test code = A/G Ratio) 0.8 1 0.7-1.6 [place] [address]-04-28 21:03:00 Test Item Value Reference Range Interpretation Comments PT (test code = PT) 12.5 s 12.0-14.7 [place] [address]-04-28 21:03:00 Test Item Value Reference Range Interpretation Comments PTT (test code = PTT) 25.6 s 22.9-35.8 [place] [address]-04-28 21:03:00 Test Item Value Reference Range Interpretation Comments INR (test code = INR) 0.93 1 0.87-1.13 [place] [address]-04-28 21:03:00 Test Item Value Reference Range Interpretation Comments Basophils # (test code 0.1 See_Comment [Aut omated message] The = Basophils #) system which generated this result tra nsmitted reference range : <=0.2. The reference r enrique was not used to int erpret this result as normal/abnormal . [place] [address]-04-28 21:03:00 Test Item Value Reference Range Interpretation Comments Total Protein (test code = Total 6.9 6.4-8.4 Protein) [place] [address]-04-28 21:03:00 Test Item Value Reference Range Interpretation Comments Albumin Lvl (test code = Albumin Lvl) 3.1 3.5-5.0 [place] [address]-04-28 21:03:00 Test Item Value Reference Range Interpretation Comments ALT (test code = ALT) 15 See_Comment [Auto mated message] The system which ge nerated this result transmit justice reference range : <=65. The reference range was not used to interpr et this result as jabari l/abnormal. [place] [address]-04-28 21:03:00 Test Item Value Reference Range Interpretation Comments AST (test code = AST) 15 See_Comment [Auto mated message] The system which ge nerated this result transmit justice reference range : <=37. The reference range was not used to interpr et this result as jabari l/abnormal. [facility] NortheastYsdgampHGMYXSCRR8786-72-69 21:03:00 Test Item Value Reference Range Interpretation Comments Alk Phos (test code = Alk Phos) 85 39-136 [facility]BhgplwcMZWZHTDIM3726-35-53 21:03:00 Test Item Value Reference Range Interpretation Comments Bili Total (test code = Bili Total) 0.4 0.2-1.3 [facility] NortheastSxkmubfZKGKZIMFC7365-97-46 21:03:00 Test Item Value Reference Range Interpretation Comments B/C Ratio (test code = B/C Ratio) 15 1 6-25 [facility] NortheastAltkpdxONUGVGEZS0063-86-39 21:03:00 Test Item Value Reference Range Interpretation Comments Globulin (test code = Globulin) 3.8 2.7-4.2 [facility] NortheastQyjxfmaNKDNPVODU4296-85-53 21:03:00 Test Item Value Reference Range Interpretation Comments A/G Ratio (test code = A/G Ratio) 0.8 1 0.7-1.6 [facility] NortheastXuibbdtVPTSYDYMKF2338-07-28 21:03:00 Test Item Value Reference Range Interpretation Comments PT (test code = PT) 12.5 s 12.0-14.7 [facility] NortheastSwspxtwHYZKZOKVIE0523-60-96 21:03:00 Test Item Value Reference Range Interpretation Comments PTT (test code = PTT) 25.6 s 22.9-35.8 [facility] NortheastHvwnthcXZJJACDENY7077-22-15 21:03:00 Test Item Value Reference Range Interpretation Comments INR (test code = INR) 0.93 1 0.87-1.13 [facility] CampusMejrjzqZYTMRARJKW6432-67-59 21:03:00 Test Item Value Reference Range Interpretation Comments Basophils # (test code 0.1 See_Comment [Aut omated message] The = Basophils #) system which generated this result tra nsmitted reference range : <=0.2. The reference r enrique was not used to int erpret this result as normal/abnormal . [facility] NortheastGjnigbtINFODJWYT3890-92-96 21:03:00 Test Item Value Reference Range Interpretation Comments Total Protein (test code = Total 6.9 6.4-8.4 Protein) [facility]YdnnlqkYQMEZLTUK8908-96-92 21:03:00 Test Item Value Reference Range Interpretation Comments Albumin Lvl (test code = Albumin Lvl) 3.1 3.5-5.0 [facility] MhjkmjcUXESUYVVP2430-59-14 21:03:00 Test Item Value Reference Range Interpretation Comments ALT (test code = ALT) 15 See_Comment [Auto mated message] The system which ge nerated this result transmit justice reference range : <=65. The reference range was not used to interpr et this result as jabari l/abnormal. [facility] VavulyeSJKVMHBWY2759-05-17 21:03:00 Test Item Value Reference Range Interpretation Comments AST (test code = AST) 15 See_Comment [Auto mated message] The system which ge nerated this result transmit justice reference range : <=37. The reference range was not used to interpr et this result as jabari l/abnormal. [facility] RghdjvyABPVLDGEY2857-19-46 21:03:00 Test Item Value Reference Range Interpretation Comments Alk Phos (test code = Alk Phos) 85 39-136 [facility] NortheastZkdjvhzZLALYYNTO2373-38-71 21:03:00 Test Item Value Reference Range Interpretation Comments Bili Total (test code = Bili Total) 0.4 0.2-1.3 [facility] NwmitcbKWIDKZCYW1903-97-61 21:03:00 Test Item Value Reference Range Interpretation Comments B/C Ratio (test code = B/C Ratio) 15 1 6-25 [facility] RddszrnGBXUWETUZ2391-35-55 21:03:00 Test Item Value Reference Range Interpretation Comments Globulin (test code = Globulin) 3.8 2.7-4.2 [facility] FqqmkanNJULMPZEH8579-29-12 21:03:00 Test Item Value Reference Range Interpretation Comments A/G Ratio (test code = A/G Ratio) 0.8 1 0.7-1.6 [facility] QuvtlfwRPLVNMWGHW3469-45-35 21:03:00 Test Item Value Reference Range Interpretation Comments PT (test code = PT) 12.5 s 12.0-14.7 [facility] SmclibpXEJRFMHQYI0480-09-23 21:03:00 Test Item Value Reference Range Interpretation Comments PTT (test code = PTT) 25.6 s 22.9-35.8 [facility] HwdgtmtLJLDJJPCND9341-79-69 21:03:00 Test Item Value Reference Range Interpretation Comments INR (test code = INR) 0.93 1 0.87-1.13 [facility] DipnpqiZXJTUGCUBY7210-52-88 21:03:00 Test Item Value Reference Range Interpretation Comments Basophils # (test code 0.1 See_Comment [Aut omated message] The = Basophils #) system which generated this result tra nsmitted reference range : <=0.2. The reference r enrique was not used to int erpret this result as normal/abnormal . [facility] LyjnigyNJDUEJSQJ8306-77-36 21:03:00 Test Item Value Reference Range Interpretation Comments Total Protein (test code = Total 6.9 6.4-8.4 Protein) [facility] NortheastDwvqaspJEJZRQXCW9488-62-10 21:03:00 Test Item Value Reference Range Interpretation Comments Albumin Lvl (test code = Albumin Lvl) 3.1 3.5-5.0 [facility] YnegcyeXSICXCMPC3982-59-59 21:03:00 Test Item Value Reference Range Interpretation Comments ALT (test code = ALT) 15 See_Comment [Auto mated message] The system which ge nerated this result transmit justice reference range : <=65. The reference range was not used to interpr et this result as jabari l/abnormal. [facility] RszttauHFUGEXZBG0197-24-49 21:03:00 Test Item Value Reference Range Interpretation Comments AST (test code = AST) 15 See_Comment [Auto mated message] The system which ge nerated this result transmit justice reference range : <=37. The reference range was not used to interpr et this result as jabari l/abnormal. [facility] VsssimfXHFFPWNEE1954-86-80 21:03:00 Test Item Value Reference Range Interpretation Comments Alk Phos (test code = Alk Phos) 85 39-136 [facility] XkkzurlHKMYUHGBU8265-97-67 21:03:00 Test Item Value Reference Range Interpretation Comments Bili Total (test code = Bili Total) 0.4 0.2-1.3 [facility] HhkmodaTIYDIMOVH4785-05-63 21:03:00 Test Item Value Reference Range Interpretation Comments B/C Ratio (test code = B/C Ratio) 15 1 6-25 [facility] DamsbvnMDUMWTSIY2018-73-30 21:03:00 Test Item Value Reference Range Interpretation Comments Globulin (test code = Globulin) 3.8 2.7-4.2 [place] [address]-04-28 21:03:00 Test Item Value Reference Range Interpretation Comments A/G Ratio (test code = A/G Ratio) 0.8 1 0.7-1.6 [place] [address]-04-28 21:03:00 Test Item Value Reference Range Interpretation Comments PT (test code = PT) 12.5 s 12.0-14.7 [place] [address]-04-28 21:03:00 Test Item Value Reference Range Interpretation Comments PTT (test code = PTT) 25.6 s 22.9-35.8 [place] [address]-04-28 21:03:00 Test Item Value Reference Range Interpretation Comments INR (test code = INR) 0.93 1 0.87-1.13 [place] [address]-04-28 21:03:00 Test Item Value Reference Range Interpretation Comments Basophils # (test code 0.1 See_Comment [Aut omated message] The = Basophils #) system which generated this result tra nsmitted reference range : <=0.2. The reference r enrique was not used to int erpret this result as normal/abnormal . [facility]ozlsexRMWBDRFQG2837-69-01 21:03:00 Test Item Value Reference Range Interpretation Comments Total Protein (test code = Total 6.9 6.4-8.4 Protein) [place] [address]-04-28 21:03:00 Test Item Value Reference Range Interpretation Comments Albumin Lvl (test code = Albumin Lvl) 3.1 3.5-5.0 [place] [address]-04-28 21:03:00 Test Item Value Reference Range Interpretation Comments ALT (test code = ALT) 15 See_Comment [Auto mated message] The system which ge nerated this result transmit justice reference range : <=65. The reference range was not used to interpr et this result as jabari l/abnormal. [place] [address]-04-28 21:03:00 Test Item Value Reference Range Interpretation Comments AST (test code = AST) 15 See_Comment [Auto mated message] The system which ge nerated this result transmit justice reference range : <=37. The reference range was not used to interpr et this result as jabari l/abnormal. [place] [address]-04-28 21:03:00 Test Item Value Reference Range Interpretation Comments Alk Phos (test code = Alk Phos) 85 39-136 [facility]uznoyvQWITXZNUY0381-17-47 21:03:00 Test Item Value Reference Range Interpretation Comments Bili Total (test code = Bili Total) 0.4 0.2-1.3 [facility]TdydpzhEJPTEFYSG3745-07-25 21:03:00 Test Item Value Reference Range Interpretation Comments B/C Ratio (test code = B/C Ratio) 15 1 6-25 [place] [address]-04-28 21:03:00 Test Item Value Reference Range Interpretation Comments Globulin (test code = Globulin) 3.8 2.7-4.2 [place] 363893-04-28 21:03:00 Test Item Value Reference Range Interpretation Comments A/G Ratio (test code = A/G Ratio) 0.8 1 0.7-1.6 [facility]zpszgoVETTKMVUZS1314-54-13 21:03:00 Test Item Value Reference Range Interpretation Comments PT (test code = PT) 12.5 s 12.0-14.7 [facility]oKfiboaqDQNJGWOMHN3172-55-63 21:03:00 Test Item Value Reference Range Interpretation Comments PTT (test code = PTT) 25.6 s 22.9-35.8 [facility]oMgoelswLLDSHKZGZJ5941-53-18 21:03:00 Test Item Value Reference Range Interpretation Comments INR (test code = INR) 0.93 1 0.87-1.13 [facility]oYhvomjmGQKBPYHRUD2535-16-67 21:03:00 Test Item Value Reference Range Interpretation Comments Basophils # (test code 0.1 See_Comment [Aut omated message] The = Basophils #) system which generated this result tra nsmitted reference range : <=0.2. The reference r enrique was not used to int erpret this result as normal/abnormal . [facility]EghoixgTYBRLXVRH1801-62-71 21:03:00 Test Item Value Reference Range Interpretation Comments Total Protein (test code = Total 6.9 6.4-8.4 Protein) [facility]LhcykvkHSYVFNBVU7749-72-09 21:03:00 Test Item Value Reference Range Interpretation Comments Albumin Lvl (test code = Albumin Lvl) 3.1 3.5-5.0 [facility]RhjxnoeCEIDSHTKG7910-42-96 21:03:00 Test Item Value Reference Range Interpretation Comments ALT (test code = ALT) 15 See_Comment [Auto mated message] The system which ge nerated this result transmit justice reference range : <=65. The reference range was not used to interpr et this result as jabari l/abnormal. [facility] Notes Date/Time Note Provider Source 2023-02-19 15:38:00-00:00 EXAM: Chest [address] [place] [address] DATE: 02/19/2023 15:38. INDICATION: Crackles - post op. COMPARISON: None available. TECHNIQUE: AP chest. FINDINGS/IMPRESSION: Lines, Tubes and Hardware: None. Lungs and Pleura: No focal a irspace consolidation, pleural effusion, or pneumothorax is evident. Heart and Mediastinum: The c ardiomediastinal silhouette is within normal limits. Pulmonary vascularity is within normal limits. Bones: No acute bony abnormality is identified. Moderate soft tissue emphyse ma is seen along the lateral aspect of the left greater than right chest and upper abdominal davis. 2023-02-19 15:38:00-00:00 EXAM: Chest [address] [place] [address] DATE: 02/19/2023 15:38. INDICATION: Crackles - post op. COMPARISON: None available. TECHNIQUE: AP chest. FINDINGS/IMPRESSION: Lines, Tubes and Hardware: None. Lungs and Pleura: No focal a irspace consolidation, pleural effusion, or pneumothorax is evident. Heart and Mediastinum: The c ardiomediastinal silhouette is within normal limits. Pulmonary vascularity is within normal limits. Bones: No acute bony abnormality is identified. Moderate soft tissue emphyse ma is seen along the lateral aspect of the left greater than right chest and upper abdominal davis. 2023-02-19 15:38:00-00:00 EXAM: Chest [address] [place] [address] DATE: 02/19/2023 15:38. INDICATION: Crackles - post op. COMPARISON: None available. TECHNIQUE: AP chest. FINDINGS/IMPRESSION: Lines, Tubes and Hardware: None. Lungs and Pleura: No focal a irspace consolidation, pleural effusion, or pneumothorax is evident. Heart and Mediastinum: The c ardiomediastinal silhouette is within normal limits. Pulmonary vascularity is within normal limits. Bones: No acute bony abnormality is identified. Moderate soft tissue emphyse ma is seen along the lateral aspect of the left greater than right chest and upper abdominal davis. 2023-02-19 15:38:00-00:00 EXAM: Chest 1view DX [facility] DATE: 02/19/2023 15:38. INDICATION: Crackles - post op. COMPARISON: None available. TECHNIQUE: AP chest. FINDINGS/
[2023-04-21] MEDS ORDERED: NA CHLORIDE 0.9% 1,000 ML ONE (09:32)
[2023-04-21 09:57] LABS: Protime INR 0.93
--- NOTE | 2023-04-21 10:02 | RAD REPORT ---
EXAM DESCRIPTION: [place] Single View04/21/2023 9:50 am CLINICAL HISTORY: Shortness of breath COMPARISON: 2021 FINDINGS: Lungs are moderately to markedly hyperaerated. Nodular opacity overlies the right lung bas e consistent with a nipple shadow. Old rib fractures. 5 millimeter sclerotic foci right humerus The lungs appear clear of acute infiltrate. The heart is normal size IMPRESSION: No acute pulmonary abnormality seen 5 millimeter sclerotic focus right humerus nonspecific. Follow-up x-ray right humerus recommended in 3 months to assess stability
[2023-04-21 10:06] LABS: Absolute Lymphocytes (CBC) 1.4 K/uL (0.7-4.9); Hematocrit 29.5 % (39.6-49.0); Lymphocytes % 19.2 % (15.3-44.8); MCV 81.2 fL (80-100); MPV 8.3 fL (7.6-11.3); RBC Red Blood Cell Count 3.63 M/uL (4.33-5.43)
[2023-04-21] MEDS ORDERED: FAMOTIDINE 20 MG/2 ML VIAL IV ONE (10:22)
[2023-04-21] MEDS ORDERED: NA CHLORIDE 0.9% 500 ML ONE (10:22)
[2023-04-21 10:29] LABS: Albumin 3.9 g/dL (3.4-5.0); Bilirubin Direct 0.1 mg/dL (0-0.2); Bilirubin Indirect, Calculated 0.2 mg/dL (0.2-0.8); Bilirubin Total 0.3 mg/dL (0.2-1.0); Protein, Total 7.8 g/dL (6.4-8.2); Troponin High Sensitivity 37.6 pg/mL (<58.9)
[2023-04-21 10:31] LABS: Magnesium 0.9 mg/dL (1.6-2.4); Potassium 6.3 mEq/L (3.5-5.1)
[2023-04-21 10:34] LABS: Anisocytosis 2+; Blood Morphology Comment NOTED (NOT SEEN); Hypochromasia 2+; Platelet Estimate ADEQ; White Blood Cell Scan OK (OK)
--- NOTE | 2023-04-21 10:50 | EDPHYS ---
Physician Documentation [facility] Name: Luis Gonzalez Age: 67 yrs Sex: Male : 1955 Arrival Date: 04/21/2023 Time: 08:[address] Private MD: Kurt Castro HPI: 04/21 10:12 This 67 yrs old Male presents to ER via Ambulatory with complaints of paresh Abnormal Lab Results. 10:12 The patient presents to the emergency department with nausea. Onset: The paresh symptoms/episode began/occurred 3 day(s) ago. Possible causes: unknown. The symptoms are aggravated by nothing. The symptoms are alleviated by nothing. CALL FOR ABNORMAL RENAL FUNCTION. Associated signs and symptoms: Pertinent positives: nausea. Severity of symptoms: At their worst the symptoms were moderate in the emergency department the symptoms are unchanged. The patient has not experienced similar symptoms in the past. Historical: - Allergies: 09:07 codeine sulfate; kl - PMHx: 09:07 Rectal CA; Chronic obstructive lung disease; Depressive disorder; Hypothyroidism; kl - PSHx: 09:07 Appendectomy; Back surgery; Colostomy; kl 09:09 Rectal surgery; kl - Immunization history:: Client reports having NOT received the Covid vaccine. - Social history:: Smoking status: Patient reports the use of cigarette tobacco products, smokes one-half pack cigarettes per day. - Family history:: not pertinent. ROS: 10:12 Constitutional: Negative for fever, chills, and weight loss, Eyes: Negative for injury, paresh pain, redness, and discharge, ENT: Negative for injury, pain, and discharge, Neck: Negative for injury, pain, and swelling, Cardiovascular: Negative for chest pain, palpitations, and edema, Respiratory: Negative for shortness of breath, cough, wheezing, and pleuritic chest pain, Abdomen/GI: Negative for abdominal pain, nausea, vomiting, diarrhea, and constipation, Back: Negative for injury and pain, : Negative for injury, bleeding, discharge, and swelling, MS/Extremity: Negative for injury and deformity, Skin: Negative for injury, rash, and discoloration, Neuro: Negative for headache, weakness, numbness, tingling, and seizure, Psych: Negative for depression, anxiety, suicide ideation, homicidal ideation, and hallucinations, Allergy/Immunology: Negative for hives, rash, and allergies, Endocrine: Negative for neck swelling, polydipsia, polyuria, polyphagia, and marked weight changes, Hematologic/Lymphatic: Negative for swollen nodes, abnormal bleeding, and unusual bruising. 10:12 Neuro: Positive for weakness. Exam: 10:12 Constitutional: This is a well developed, well nourished patient who is awake, alert, paresh and in no acute distress. ENT: Nares patent. No nasal discharge, no septal abnormalities noted. Tympanic membranes are normal and external auditory canals are clear. Oropharynx with no redness, swelling, or masses, exudates, or evidence of obstruction, uvula midline. Mucous membranes moist. Neck: Trachea midline, no thyromegaly or masses palpated, and no cervical lymphadenopathy. Supple, full range of motion without nuchal rigidity, or vertebral point tenderness. No Meningismus. Chest/axilla: Normal chest wall appearance and motion. Nontender with no deformity. No lesions are appreciated. Cardiovascular: Regular rate and rhythm with a normal S1 and S2. No gallops, murmurs, or rubs. Normal PMI, no JVD. No pulse deficits. Respiratory: Lungs have equal breath sounds bilaterally, clear to auscultation and percussion. No rales, rhonchi or wheezes noted. No increased work of breathing, no retractions or nasal flaring. Abdomen/GI: Soft, non-tender, with normal bowel sounds. No distension or tympany. No guarding or rebound. No evidence of tenderness throughout. Back: No spinal tenderness. No costovertebral tenderness. Full range of motion. Male : Normal genitalia with no discharge or lesions. Skin: Warm, dry with normal turgor. Normal color with no rashes, no lesions, and no evidence of cellulitis. MS/ Extremity: Pulses equal, no cyanosis. Neurovascular intact. Full, normal range of motion. Neuro: Awake and alert, GCS 15, oriented to person, place, time, and situation. Cranial nerves II-XII grossly intact. Motor strength 5/5 in all extremities. Sensory grossly intact. Cerebellar exam normal. Normal gait. Psych: Awake, alert, with orientation to person, place and time. Behavior, mood, and affect are within normal limits. 10:12 ECG was reviewed by the Attending Physician. Vital Signs: 09:05 BP 123 / 76; Pulse 85; Resp 18; Temp 98.2; Pulse Ox 97% ; Weight 63.96 kg; Height 6 ft. kl 6 in. ; Pain 0/10; 11:42 BP 123 / 82; Pulse 75; Resp 19 S; Pulse Ox 100% on R/A; Pain 0/10; kc6 09:05 Body Mass Index 16.29 (63.96 kg, 198.12 cm) kl 09:05 Pain Scale: Adult kl 11:42 Pain Scale: Adult kc6 MDM: 09:02 Patient medically screened. sb4 10:16 Differential diagnosis: Nonspecific abd pain, viral gastroenteritis, gastroenteritis. [facility] Data reviewed: vital signs, nurses notes, lab test result(s), EKG, radiologic studies, plain films. Consideration of Admission/Observation Patient was admitted/placed on observation. Escalation of care including admission/observation considered. I considered the following discharge prescriptions or medication management in the emergency department Medications were administered in the Emergency Department. See MAR. Independent interpretation of the following test(s) in the Emergency Department EKG: See my EKG interpretation above. Test considered but Not performed: Ultrasound RENAL USG. Care significantly affected by the following chronic conditions: Chronic Obstructive Pulmonary Disease, Cancer, DEPRESSION. 04/21 09:21 Order name: Basic Metabolic Panel; Complete Time: 11:00 [facility] 04/21 09:21 Order name: CBC with Diff; Complete Time: 11:00 [facility] 04/21 09:21 Order name: LFT's; Complete Time: 11:00 [facility] 04/21 09:21 Order name: Magnesium; Complete Time: 11:00 [facility] 04/21 09:21 Order name: NT PRO-BNP; Complete Time: 11:00 [facility] 04/21 09:21 Order name: PT-INR; Complete Time: 10:28 [facility] 04/21 09:21 Order name: Troponin HS; Complete Time: 11:00 [facility] 04/21 09:21 Order name: Lipase; Complete Time: 11:00 [facility] 04/21 09:21 Order name: Urinalysis w/ reflexes [facility] 04/21 09:47 Order name: Type And Screen [facility] 04/21 10:35 Order name: CBC Smear Scan; Complete Time: 11:00 [facility] 04/21 11:08 Order name: Antibody Identification [facility] 04/21 11:13 Order name: Glucose, Ancillary Testing; Complete Time: 11:28 [facility] 04/21 11:50 Order name: CBC with Automated Diff EDMS 04/21 11:50 Order name: CBC with Automated Diff EDMS 04/21 11:50 Order name: Comprehensive Metabolic Panel EDMS 04/21 11:50 Order name: Comprehensive Metabolic Panel EDMS 04/21 11:50 Order name: Magnesium EDMS 04/21 12:43 Order name: Glucose, Ancillary Testing EDMS 04/21 09:21 Order name: XRAY Chest (1 view); Complete Time: 10:28 [facility] 04/21 10:31 Order name: CT Stone Protocol; Complete Time: 11:28 [facility] 04/21 13:11 Order name: CT EDMS 04/21 09:21 Order name: EKG; Complete Time: 09:22 [facility] 04/21 11:50 Order name: Renal EDMS 04/21 09:21 Order name: Cardiac monitoring; Complete Time: 09:22 [facility] 04/21 09:21 Order name: EKG - Nurse/Tech; Complete Time: 09:32 [facility] 04/21 09:21 Order name: IV Saline Lock; Complete Time: 09:39 [facility] 04/21 09:21 Order name: Labs collected and sent; Complete Time: 09:39 [facility] 04/21 09:21 Order name: O2 Per Protocol; Complete Time: 09:23 [facility] 04/21 09:21 Order name: O2 Sat Monitoring; Complete Time: 09:23 [facility] EC:12 Rate is 74 beats/min. Rhythm is regular. QRS [place] is Normal. MA interval is normal. QRS paresh interval is normal. QT interval is normal. No Q waves. T waves are Normal. Clinical impression: Abnormal EKG without significant change and No evidence of ischemia. Interpreted by me. Reviewed by me. Administered Medications: 11:00 Discontinued: NS 0.9% IV 1000 ml IV at 75 ml/hr continuous paresh 09:38 Drug: NS 0.9% IV 1000 ml Route: IV; Rate: 75 ml/hr; Site: left antecubital; kc6 11:29 Follow up: Response: No adverse reaction; IV Status: Order to discontinue infusion kc6 10:23 Drug: Famotidine IVP 20 mg Route: IVP; Site: left antecubital; kc6 11:29 Follow up: Response: No adverse reaction [facility] 10:23 Drug: NS 0.9% IV 500 ml Route: IV; Rate: bolus; Site: left antecubital; kc6 11:42 Follow up: Response: No adverse reaction; IV Status: Completed infusion; IV Intake: kc6 500ml 11:08 Drug: D10 in Water IVP 250 ml Route: IVP; Site: left antecubital; kc6 11:29 Follow up: Response: No adverse reaction kc6 11:08 Drug: DuoNeb Nebulize (2.5 mg - 0.5 mg) 3 ml Route: Nebulizer; kc6 11:29 Follow up: Response: No adverse reaction kc6 11:24 Drug: Magnesium Sulfate IVPB 2 grams Route: IVPB; Infused Over: 2 hrs; Site: left [facility] antecubital; 12:56 Follow up: Response: No adverse reaction; IV Status: Completed infusion kc6 11:24 Drug: Calcium Gluconate IVPB 1 grams Route: IVPB; Infused Over: 20 mins; Site: left [facility] antecubital; 12:03 Follow up: Response: No adverse reaction; IV Status: Completed infusion; IV Intake: kc6 100ml 11:24 Drug: Sodium Bicarbonate IVP 1 amp Route: IVP; Site: right antecubital; kc6 12:02 Follow up: Response: No adverse reaction kc6 11:31 Drug: Insulin Regular Human IVP 10 units {Co-Signature: mal (Mila Garcia RN).} kc6 Route: IVP; Site: right antecubital; 12:56 Follow up: Response: No adverse reaction kc6 11:41 Drug: Kayexalate PO 45 grams Route: PO; kc6 12:03 Follow up: Response: No adverse reaction kc6 11:41 Drug: D5W IV 1000 ml, Sodium Bicarbonate IVP 150 mEq Route: IV; Rate: 100 ml/hr; [facility]; 12:03 Follow up: Response: No adverse reaction; IV Status: Infusion continued upon admission kc6 Disposition Summary: 04/21/23 10:49 Hospitalization Ordered Hospitalization Status: Inpatient Admission paresh Provider: Rafael Whitmore cha Location: Telemetry/MedSurg (Inpatient) paresh Condition: Fair paresh Problem: new paresh Symptoms: have improved paresh Bed/Room Type: Standard paresh Room Assignment: 428(04/21/23 13:12) eb Diagnosis - Acute kidney failure, unspecified paresh - Anemia, unspecified paresh - Hyperkalemia - 6.3 paresh - Weakness paresh - Hypomagnesemia paresh Forms: - Medication Reconciliation Form paresh - SBAR form paresh Signatures: Dispatcher [employer] EDGail Hartley RN RN Kurt Broderick MD MD cha Botello, Elizabeth eb Nieto, Raymond, MD MD rn3 Nohemi Moreno RN RN kc6 Mita Hawkins PA-C PA-C sb4 Mila Garcia RN db Corrections: (The following items were deleted from the chart) 13:12 10:49 paresh eb
--- NOTE | 2023-04-21 10:50 | ER ---
Nurse's Notes [facility] Name: Luis Gonzalez Age: 67 yrs Sex: Male : 1955 Arrival Date: 04/21/2023 Time: 08:[address] Private MD: Diagnosis: Acute kidney failure, unspecified;Anemia, unspecified;Hyperkalemia-6.3;Weakness;Hypomagnesemia Presentation: 04/21 09:05 Chief complaint: Patient states: High potassium, had blood work done yesterday, told by kl PCP to come to ED. Coronavirus screen: Vaccine status: Patient reports being unvaccinated. Ebola Screen: Patient denies travel to an Ebola-affected area in the 21 days before illness onset. Initial Sepsis Screen: Does the patient meet any 2 criteria? No. Patient's initial sepsis screen is negative. Does the patient have a suspected source of infection? No. Patient's initial sepsis screen is negative. Risk Assessment: Do you want to hurt yourself or someone else? Patient reports no desire to harm self or others. Onset of symptoms was April 21, 2023. 09:05 Method Of Arrival: Ambulatory 09:05 Acuity: MIKAL 3 kl Historical: - Allergies: 09:07 codeine sulfate; kl - PMHx: 09:07 Rectal CA; Chronic obstructive lung disease; Depressive disorder; Hypothyroidism; kl - PSHx: 09:07 Appendectomy; Back surgery; Colostomy; kl 09:09 Rectal surgery; kl - Immunization history:: Client reports having NOT received the Covid vaccine. - Social history:: Smoking status: Patient reports the use of cigarette tobacco products, smokes one-half pack cigarettes per day. - Family history:: not pertinent. Screenin:44 [facility] ED Fall Risk Assessment (Adult) History of falling in the last 3 months, kc6 including since admission No falls in past 3 months (0 pts) Confusion or Disorientation No (0 pts) Intoxicated or Sedated No (0 pts) Impaired Gait No (0 pts) Mobility Assist Device Used No (0 pt) Altered Elimination No (0 pt) Score/Fall Risk Level 0 - 2 = Low Risk Oriented to surroundings, Maintained a safe environment, Educated pt \T\ family on fall prevention, incl call for assistance when getting out of bed, Assessed \T\ reinforced patient's understanding of fall precautions, Hourly rounding (assess needs \T\ fall precautionary measures) done. Abuse screen: Denies threats or abuse. Denies injuries from another. Nutritional screening: No deficits noted. Tuberculosis screening: No symptoms or risk factors identified. Assessment: 09:42 General: Appears in no apparent distress. comfortable, Behavior is calm, cooperative, kc6 appropriate for age. Pain: Denies pain. Neuro: Level of Consciousness is awake, alert, obeys commands, Oriented to person, place, time, situation, Appropriate for age. Cardiovascular: Denies chest pain, shortness of breath, Heart tones S1 S2 present Capillary refill < 3 seconds Rhythm is sinus rhythm. Respiratory: Airway is patent Trachea midline Respiratory effort is even, unlabored, Respiratory pattern is regular, symmetrical. GI: No signs and/or symptoms were reported involving the gastrointestinal system. Colostomy site is clean and dry. Ostomy appliance is intact. : No signs and/or symptoms were reported regarding the genitourinary system. EENT: No signs and/or symptoms were reported regarding the EENT system. Derm: No signs and/or symptoms reported regarding the dermatologic system. Skin is intact, is healthy with good turgor, Skin is dry, Skin is pale, Skin temperature is warm. Musculoskeletal: No signs and/or symptoms reported regarding the musculoskeletal system. Circulation, motion, and sensation intact. Capillary refill < 3 seconds, Range of motion: intact in all extremities. 10:42 Reassessment: Patient appears in no apparent distress at this time. No changes from kc6 previously documented assessment. Patient and/or family updated on plan of care and expected duration. Pain level reassessed. Patient is alert, oriented x 3, equal unlabored respirations, skin warm/dry/pink. Patient denies pain at this time. 11:42 Reassessment: Patient appears in no apparent distress at this time. No changes from kc6 previously documented assessment. Patient and/or family updated on plan of care and expected duration. Pain level reassessed. Patient is alert, oriented x 3, equal unlabored respirations, skin warm/dry/pink. 12:42 Reassessment: Patient appears in no apparent distress at this time. No changes from kc6 previously documented assessment. Patient and/or family updated on plan of care and expected duration. Pain level reassessed. Patient is alert, oriented x 3, equal unlabored respirations, skin warm/dry/pink. 12:56 Reassessment: please see [facility] for further charting. kc6 13:36 Reassessment: attempted to call report to 4th floor, nurse unavailable at this time. kc6 Vital Signs: 09:05 BP 123 / 76; Pulse 85; Resp 18; Temp 98.2; Pulse Ox 97% ; Weight 63.96 kg; Height 6 ft. kl 6 in. ; Pain 0/10; 11:42 BP 123 / 82; Pulse 75; Resp 19 S; Pulse Ox 100% on R/A; Pain 0/10; kc6 09:05 Body Mass Index 16.29 (63.96 kg, 198.12 cm) kl 09:05 Pain Scale: Adult kl 11:42 Pain Scale: Adult 6 ED Course: 09:00 Patient arrived in ED. ts1 09:02 Mita Hawkins PA-C is PHCP. sb4 09:02 Kurt Carlson MD is Attending Physician. sb4 09:07 Triage completed. kl 09:10 Arm band placed on left wrist. kl 09:18 Nohemi Moreno, RN is Primary Nurse. kc6 09:39 Patient has correct armband on for positive identification. Bed in low position. Call mm9 light in reach. Side rails up X 1. Adult w/ patient. Warm blanket given. Pillow given. ekg monitor on. Pulse ox on. NIBP on. 09:39 LFT's Sent. mm9 09:39 Magnesium Sent. mm9 09:39 NT PRO-BNP Sent. mm9 09:39 PT-INR Sent. mm9 09:39 Troponin HS Sent. mm9 09:39 CBC with Diff Sent. mm9 09:39 Basic Metabolic Panel Sent. mm9 09:39 Lipase Sent. mm9 09:45 Initial lab(s) drawn, by me, sent to lab. EKG done, by ED staff, reviewed by Kurt Carlson MD. Inserted saline lock: 22 gauge in left antecubital area, using aseptic technique. Blood collected. 09:52 XRAY Chest (1 view) In Process Unspecified. EDMS 10:41 Rafael Whitmore MD is Hospitalizing Provider. paresh 10:54 CT Stone Protocol In Process Unspecified. EDMS 11:29 Inserted saline lock: 20 gauge in right antecubital area, using aseptic technique. kc6 13:46 No provider procedures requiring assistance completed. Patient admitted, IV remains in kc6 place. Administered Medications: 11:00 Discontinued: NS 0.9% IV 1000 ml IV at 75 ml/hr continuous paresh 09:38 Drug: NS 0.9% IV 1000 ml Route: IV; Rate: 75 ml/hr; Site: left antecubital; kc6 11:29 Follow up: Response: No adverse reaction; IV Status: Order to discontinue infusion kc6 10:23 Drug: Famotidine IVP 20 mg Route: IVP; Site: left antecubital; kc6 11:29 Follow up: Response: No adverse reaction kc6 10:23 Drug: NS 0.9% IV 500 ml Route: IV; Rate: bolus; Site: left antecubital; kc6 11:42 Follow up: Response: No adverse reaction; IV Status: Completed infusion; IV Intake: kc6 500ml 11:08 Drug: D10 in Water IVP 250 ml Route: IVP; Site: left antecubital; kc6 11:29 Follow up: Response: No adverse reaction kc6 11:08 Drug: DuoNeb Nebulize (2.5 mg - 0.5 mg) 3 ml Route: Nebulizer; kc6 11:29 Follow up: Response: No adverse reaction kc6 11:24 Drug: Magnesium Sulfate IVPB 2 grams Route: IVPB; Infused Over: 2 hrs; Site: left [facility] antecubital; 12:56 Follow up: Response: No adverse reaction; IV Status: Completed infusion kc6 11:24 Drug: Calcium Gluconate IVPB 1 grams Route: IVPB; Infused Over: 20 mins; Site: left [facility] antecubital; 12:03 Follow up: Response: No adverse reaction; IV Status: Completed infusion; IV Intake: kc6 100ml 11:24 Drug: Sodium Bicarbonate IVP 1 amp Route: IVP; Site: right antecubital; kc6 12:02 Follow up: Response: No adverse reaction kc6 11:31 Drug: Insulin Regular Human IVP 10 units {Co-Signature: db (Mila Garcia RN).} kc6 Route: IVP; Site: right antecubital; 12:56 Follow up: Response: No adverse reaction kc6 11:41 Drug: Kayexalate PO 45 grams Route: PO; kc6 12:03 Follow up: Response: No adverse reaction kc6 11:41 Drug: D5W IV 1000 ml, Sodium Bicarbonate IVP 150 mEq Route: IV; Rate: 100 ml/hr; Site: kc6 left antecubital; 12:03 Follow up: Response: No adverse reaction; IV Status: Infusion continued upon admission kc6 Medication: 13:47 VIS not applicable for this client. kc6 Intake: 11:42 IV: 500ml; Total: 500ml. kc6 12:03 IV: 100ml; Total: 600ml. kc6 Outcome: 10:49 Decision to Hospitalize by Provider. paresh 13:46 Admitted to Med/surg accompanied by tech, via stretcher, room 428, with chart, Report kc6 called to Nohemi Mcgill RN 13:46 Condition: stable 13:46 Instructed on the need for admit. 14:10 Patient left the ED. kc6 Signatures: Dispatcher [employer] Gail Padilla RN RN kl Anderson, Corey, MD MD cha Campbell, Kaitlyn, RN RN kc6 Brown, Sophia, PA-C PA-C ever4 Imelda Burrell Tanya, PAS PAS ts1 Mila Garcia RN db
[2023-04-21] MEDS ORDERED: ALBUTEROL 2.5 MG/3 ML NEB SOL ONE (11:02)
[2023-04-21] MEDS ORDERED: IPRATROPIUM BROM 0.5MG/2.5ML ONE (11:03)
[2023-04-21] MEDS ORDERED: INSULIN -REGULAR HUMAN 50 UNIT/0.5 ML ML ONE (11:03)
[2023-04-21] MEDS ORDERED: D10W 250 ML IV ONE (11:04)
[2023-04-21] MEDS ORDERED: SOD POLYSTYREN SUL 15 GM/60 ML UCUP ONE (11:04)
[2023-04-21] MEDS ORDERED: Magnesium Sulfate 2gm IVPB 2 G/50 ML BAG IV ONE ×2 (11:04→16:50)
[2023-04-21] MEDS ORDERED: CALCIUM GLUCONATE 1 GM IVPB 1 GM/50 ML BAG IV ONE (11:04)
--- NOTE | 2023-04-21 11:19 | RAD REPORT ---
EXAM DESCRIPTION: CT - Stone Protocol - 04/21/2023 10:52 am CLINICAL HISTORY: Abdominal pain. Flank pain COMPARISON: None. TECHNIQUE: Computed axial tomography of the abdomen pelvis was obtained without oral or IV contrast. Lack of IV and oral contrast limits evaluation of solid organs, appendix, bowel, and vessels. Mcwilliams l reformatted images were obtained and reviewed. All CT scans are performed using dose optimization technique as appropriate and may include automated exposure control or mA/KV adjustment according to patient size. FINDINGS: A renal calculus is not seen. An ureteral calculus is not noted. A bladder calculus is not present. No hydronephrosis Bilateral cystic renal masses. The liver, spleen, pancreas and adrenals appear grossly normal Left abdominal ileostomy. Postsurgical changes colon. Diverticula stem from the colon without visuali zation of diverticulitis. Atherosclerotic disease. 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 Mild posterior subluxation of L5 on S1 3.5 centimeter duodenal diverticulum IMPRESSION: Negative for a genitourinary calculus Bilateral cystic renal masses are nonspecific. Most likely they represent cysts.
--- NOTE | 2023-04-21 11:49 | P.HP ---
Certification for Inpatient Patient admitted to: Inpatient With expected LOS: >2 Midnights Practitioner: I am a practitioner with admitting privileges, knowledge of patient current condition, hospital course, and medical plan of care. Services: Services provided to patient in accordance with Admission requirements found in Title 42 Section 412.3 of the Code of Federal Regulations Patient History Date of Service: 04/21/23 Primary Care Provider: Sadaf Reason for admission: Hyperkalemia History of Present Illness: Mr. Harley Gonzalez is a pleasant 67 year old male who has a past medical history of localized rectal adenocarcinoma ([id number]) s/p resection with diverting loop ileostomy (February 2023) s/p 3 doses of capecitabine, chronic obstructive pulmonary disease, hypothyroidism, depressive disorder, and gastroesophageal reflux disease who presents to the [facility] Emergency Department after his PCP (Dr. Talavera) called him with abnormal labs (potassium of 6.8). He reports that he has had some fatigue over the last few months since his colon surgery. He reports no other symptoms. He states that he went to see Dr. Talavera for his annual physical yesterday and had bloodwork done. He reports that Dr. Talavera called him this morning and informed him that his potassium and kidney function were abnormal. He stated that he was advised to present to the Emergency Department for further evaluation. On review of systems, he denies any fevers, chills, headaches, dizziness, syncope, chest pain, palpitations, shortness of breath, wheezing, cough, abdominal pain, nausea/vomiting, change in ostomy output, hematochezia, melena, dysuria, hematuria, myalgia, or any other symptoms. Upon presentation, his vital signs were stable. His laboratory studies were notable for a potassium of 6.3, a bicarbonate of 15, a BUN of 70, and a creatinine of 2.24. EKG was with borderline peaked T-waves. His chest x-ray revealed, "no acute pulmonary abnormality seen. 5 millimeter sclerotic focus right humerus nonspecific. Follow-up x-ray right humerus recommended in 3 months to assess stability." His CT abdomen revealed, "negative for a genitourinary calculus. Bilateral cystic renal masses are nonspecific. Most likely they represent cysts." In the Emergency Department, he was given 2 g magnesium sulfate, 1 amp bicarbonate, 45 g kayexalate, insulin + dextrose, famotidine, 1g calcium gluconate, and albuterol. He was admitted to the General Internal Medicine service for further evaluation. Allergies codeine Adverse Reaction (Verified 12/30/21 09:10) Itching Home medications list reviewed: Yes Home Medications: Esomeprazole Mag Trihydrate [Nexium] 20 mg PO DAILY 12/30/21 Levothyroxine Sodium [Levothyroxine] 100 mcg PO DAILY 12/30/21 Sertraline HCl 50 mg PO DAILY 12/30/21 Fluticasone/Salmeterol [Advair 250-50 Diskus] 2 puff IN BID 12/19/22 Ferrous Sulfate 325 mg PO DAILY 04/21/23 Folic Acid 1 mg PO DAILY 04/21/23 Metoclopramide HCl [Reglan] 10 mg PO ACHS PRN 04/21/23 Mirtazapine [Remeron*] 15 mg PO BEDTIME 04/21/23 - Past Medical/Surgical History Diabetic: No -: Rectal cancer -: Hypothyroidism -: GERD -: prior CVA -: Depressive Disorder -: Appendectomy -: Back surgery -: Rectal cancer resection with diverting ileostomy (February 2023) Psychosocial/ Personal History: Patient lives at home with family - Family History Mother -: Heart disease, Liver disease Father -: Cancer - Social History Smoking Status: Current every day smoker Alcohol use: Yes CD- Drugs: No Caffeine use: Yes Review of Systems General: Other (fatigue) Eyes: Unremarkable ENT: Unremarkable Respiratory: Unremarkable Cardiovascular: Unremarkable Gastrointestinal: Unremarkable Genitourinary: Unremarkable Musculoskeletal: Unremarkable Integumentary: Unremarkable Neurological: Unremarkable Lymphatics: Unremarkable Physical Examination - Vital Signs Temperature: 98.2 F Blood Pressure: 123/76 Pulse: 85 Respirations: 18 Pulse Ox (%): 97 (room air) - Physical Exam General: Alert, In no apparent distress, Oriented x3 HEENT: Atraumatic, Other (mucous membranes dry), Sclerae nonicteric Neck: JVD not distended Respiratory: Clear to auscultation bilaterally, Normal air movement Cardiovascular: No edema, Regular rate/rhythm, Normal S1 S2, No gallops, No rubs, No murmurs Gastrointestinal: Normal bowel sounds, Soft and benign, Non-distended, No tenderness, No rebound, No guarding, Other (ileostomy in mid-left abdomen with liquid, brown stool) Musculoskeletal: No clubbing Integumentary: No rashes Neurological: Normal speech, Normal affect - Studies Laboratory Data (last 24 hrs) 04/21/23 09:30: PT 10.2, INR 0.93 04/21/23 09:30: WBC 7.20, Hgb 9.6 L, Hct 29.5 L, Plt Count 211 04/21/23 09:30: Sodium 130 L, Potassium 6.3 H*, BUN 70 H, Creatinine 2.24 H, Glucose 105, Magnesium 0.9 L*, Total Bilirubin 0.3, AST 29, ALT 50, Alkaline Phosphatase 99, Lipase 64 Assessment and Plan - Plan # KDIGO Stage II Acute Kidney Injury with Hyperkalemia and Hypomagnesemia # Non-Anion Gap Metabolic Acidosis due to above # Localized Rectal Adenocarcinoma ([id number]) s/p resection with Diverting Loop Ileostomy (February 2023) s/p 3 doses of Capecitabine # Anemia of Chronic Kidney Disease - stable # 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 - Evaluation thus far: - EKG = borderline peaked T-waves - Creatinine = 2.24 (creatinine was 1.03 in February 2023) - Urinalysis = pending - CT abdomen = "negative for a genitourinary calculus. Bilateral cystic renal masses are nonspecific. Most likely they represent cysts." - Requested renal ultrasound - Management plan: - Consulted Nephrology and spoke with Dr. Davis - recommendations appreciated - S/P 1 amp bicarbonate, 45g kayexalate, insulin + dextrose, calcium gluconate, 1.5 L Normal Saline in ED - Serial electrolyte checks - Replace magnesium - Started bicarbonate drip - Telemetry - Monitor creatinine and urine output - Renally dose medications # Chronic Obstructive Pulmonary Disease - No evidence of acute exacerbation. - Continue home fluticasone-salmeterol # Depressive Disorder - Continue home sertraline # Gastroesophageal Reflux Disease - Hold home esomeprazole given hypomagnesemia # Hypothyroidism - Continue home levothyroxine # Right Humerus Sclerotic Lesion (5 mm) - Chest x-ray = "no acute pulmonary abnormality seen. 5 millimeter sclerotic focus right humerus nonspecific. Follow-up x-ray right humerus recommended in 3 months to assess stability" - This finding is concerning for malignancy given his history - Ordered CT upper extremity requested # Moderate Superior Mesenteric Artery Stenosis # Mild Spinal Stenosis - no alarm symptoms - Noted on CT abdomen. If hemoglobin remains stable, plan to start aspirin. - Follow-up with PCP for further evaluation. # Tobacco Use Disorder Tobacco cessation counseling provided. # Moderate Alcohol Use Reports that he drinks 1 beer per day Given that he will be on dextrose containing fluids, will start thiamine Low likelihood of developing alcohol withdrawal syndrome with that amount of alcohol consumption, but will monitor and treat accordingly Rafael Whitmore M.D. - Advance Directives Does patient have a Living Will: No Does patient have a Durable POA for Healthcare: No
[2023-04-21] MEDS ORDERED: D5W 1,000 ML with NA BICARB 8.4% 150 MEQ IV SCH ×2 (12:00)
--- NOTE | 2023-04-21 12:19 | P.CNS ---
Date of Consult: 04/21/23 Reason for Consult: MAK, hyperkalemia, metab acidosis Requesting Physician: Rafael Whitmore Primary Care Provider: Sadaf Chief Complaint: Hyperkalemia History of Present Illness: Pt is a 67 year old male who has a reported past medical history of localized rectal adenocarcinoma ([id number]) s/p recent resection with diverting loop ileostomy (February 2023) s/p doses of capecitabine, also with some underlying unspecified chronic obstructive pulmonary disease, hypothyroidism, and gastroesophageal reflux disease who presented earlier this AM to the [facility] Emergency Department after his PCP (Dr. Talavera) called him with abnormal labs (potassium of 6.8). Patient has had in recent days some fatigue, nausea/dry heaves and lower appetite. He reports his ostomy output is typically more liquid and he on avg empties his bag four times a day. He takes NSAIDs intermittently for back pain. His UOP has been darker per his with some reduced UOP. He has voided once a small amount since he has been here. Allergies codeine Adverse Reaction (Verified 12/30/21 09:10) Itching Home Medications: Aspirin [Aspirin EC 81 MG] 1 tab PO DAILY 12/30/21 Clopidogrel Bisulfate [Plavix] 75 mg PO DAILY 12/30/21 Esomeprazole Mag Trihydrate [Nexium] 20 mg PO DAILY 12/30/21 Levothyroxine Sodium [Levothyroxine] 50 mcg PO DAILY 12/30/21 Lisinopril [Zestril] 20 mg PO BID 12/30/21 Sertraline HCl 50 mg PO DAILY 12/30/21 Fluticasone/Salmeterol [Advair 250-50 Diskus] 12/19/22 dilTIAZem HCl [Diltiazem 24Hr ER ([place])] 12/19/22 - Past Medical/Surgical History Diabetic: No -: CVA -: Hypertension -: GERD -: Appendectomy -: Back surgery Psychosocial/ Personal History: Patient lives at home with family - Family History Mother Medical History: Heart disease, Liver disease Father Medical History: Cancer - Social History Smoking Status: Current every day smoker Alcohol use: Yes CD- Drugs: No Caffeine use: Yes Review of Systems General: Weakness Eyes: Unremarkable ENT: Unremarkable Respiratory: Unremarkable Cardiovascular: Unremarkable Gastrointestinal: Nausea, As per HPI Genitourinary: As per HPI Musculoskeletal: Back Pain Integumentary: Unremarkable Neurological: Unremarkable Lymphatics: Unremarkable Physical Examination Temp Pulse Resp BP Pulse Ox 68 20 123/82 100 04/21/23 12:00 04/21/23 12:00 04/21/23 12:00 04/21/23 12:00 General: Alert, Oriented x3, Cooperative HEENT: Atraumatic, Normocephalic, Other (dry oral mucosa) Neck: Supple Respiratory: Clear to auscultation bilaterally Cardiovascular: Regular rate/rhythm, Normal S1 S2 Gastrointestinal: Soft and benign, Non-distended, Other (RLQ ostomy with stool present in bag) Musculoskeletal: No swelling, No contractures, No erythema, No tenderness Integumentary: No rashes Neurological: Normal speech, Normal tone, Normal affect Laboratory Data (last 24 hrs) 04/21/23 09:30: PT 10.2, INR 0.93 04/21/23 09:30: WBC 7.20, Hgb 9.6 L, Hct 29.5 L, Plt Count 211 04/21/23 09:30: Sodium 130 L, Potassium 6.3 H*, BUN 70 H, Creatinine 2.24 H, Glucose 105, Magnesium 0.9 L*, Total Bilirubin 0.3, AST 29, ALT 50, Alkaline Phosphatase 99, Lipase 64 Conclusions/Impression: A/P) 1. Stage II MAK in the setting of likely pre-renal azotemia induced by ostomy/GI losses, concurrent intermittent use of NSAIDs and other. Baseline renal function from February within normal limits 2. CT scan shows no obstructive uropathy, reports of cystic lesions, unable to review images on this computer but can be assessed further as OP with a routine renal u/s. No need for jacques, monitor UOP. 3. Severe hyperkalemia in the setting of MAK, metab acidosis, loss of net K colonic excretion, other -s/p medical therapy for intracellular shifting, hopefully IVF admin and distal tubular Na deliver will help with K excretion as well. F/u repeat K level this afternoon 4 Severe hypomagnesemia 2nd to GI losses and/or absorption issues due to PPI use in addition to possible effects of Xeloda, s/p IV Mg Sulfate 2 gm, will likely need additional doses, will recheck level with K this afternoon. Ca level was not low. 5. Metab acidosis without AG due to renal failure and GI losses -pt has been placed on a pure bicarb drip which can be changed to 1/2 NS + 75 meq of sodium bicarb after the 1L bag 6. Hypovolemic hyponatremia -f/u Na level after repletion with isotonic IVF Raj Davis MD, [place]
--- NOTE | 2023-04-21 13:11 | RAD REPORT ---
EXAM DESCRIPTION: CT - Upper Extremity Wo Contr - 04/21/2023 12:56 pm CLINICAL HISTORY: Humerus lesion COMPARISON: X-ray April 21, 2023 TECHNIQUE: Computed axial tomography of the right humerus obtained with coronal and sagittal reconst ruction All CT scans are performed using dose optimization technique as appropriate and may include automated exposure control or mA/KV adjustment according to patient size. FINDINGS: 6 millimeter calcification abuts medial aspect of proximal humeral diaphysis. This corresp onds to the abnormality seen on recent chest x-ray Vascular calcifications are present. No worrisome humeral lesion noted. IMPRESSION: 6 millimeter calcification abuts the medial aspect of proximal right humeral diaphysis. It likely is benign.
[2023-04-21] MEDS: THIAMINE 200 MG/2 ML INJ IVP SCH (15:12)
[2023-04-21 15:34] VITALS: BMI 16.2
[2023-04-21 16:37] LABS: Magnesium 1.4 mg/dL (1.6-2.4); Phosphorus 4.1 mg/dL (2.5-4.9); Potassium 4.8 mEq/L (3.5-5.1); Uric Acid 7.8 mg/dL (3.5-7.2)
--- NOTE | 2023-04-21 21:15 | RAD REPORT ---
EXAM DESCRIPTION: US - Renal Ultrasound-Complete - 04/21/2023 8:45 pm CLINICAL HISTORY: Acute renal insufficiency COMPARISON: None FINDINGS: The right kidney measures 12 cm with a normal echotexture. The left kidney measures 12 cm with a normal echotexture. Bilateral renal cysts. Largest left kidney 4.6 centimeters Hydronephrosis is not seen. No gross abnormality of bladder. Mild to moderate prostatic enlargement IMPRESSION: Bilateral renal cysts No hydronephrosis
[2023-04-21] MEDS: Fluticasone/Salmeterol [Advair 250-50 Diskus] Blst.W.Dev IH SCH (21:54)
[2023-04-21] MEDS ORDERED: NACHLORIDE 0.45% 1,000 ML IV ONE (22:32)
[2023-04-21] MEDS ORDERED: SODIUM BICARB 50 MEQ/50ML VIAL ONE (22:38)
[2023-04-21] MEDS: NACHLORIDE 0.45% 1,000 ML with NA BICARB 8.4% 75 MEQ IV SCH ×2 (23:55)
[2023-04-22 03:31] LABS: Specific Gravity 1.013 (1.005-1.030); Urine Bacteria None Seen /HPF (<20); Urine Bilirubin NEGATIVE (Negative); Urine Blood Negative (Negative); Urine Clarity Clear (Clear); Urine Color Light-Yellow (Yellow); Urine Glucose NEGATIVE (Negative); Urine Protein TRACE (Negative); Urine RBC <5 /HPF (None Seen); Urine Urobilinogen Normal (Normal); Urine pH 5.5 (5.0-7.0)
[2023-04-22 04:04] LABS: Absolute Lymphocytes (CBC) 1.3 K/uL (0.7-4.9); Hematocrit 22.3 % (39.6-49.0); Lymphocytes % 23.8 % (15.3-44.8); MCV 79.7 fL (80-100); MPV 8.3 fL (7.6-11.3); RBC Red Blood Cell Count 2.79 M/uL (4.33-5.43)
[2023-04-22 04:22] LABS: Bilirubin Total 0.1 mg/dL (0.2-1.0); Magnesium 1.7 mg/dL (1.6-2.4); Phosphorus 3.7 mg/dL (2.5-4.9); Potassium 4.6 mEq/L (3.5-5.1); Protein, Total 5.9 g/dL (6.4-8.2)
[2023-04-22] MEDS: LEVOTHYROXINE SOD 0.1 MG TAB PO SCH (05:32)
[2023-04-22] MEDS: THIAMINE 200 MG/2 ML INJ IVP SCH (07:42)
[2023-04-22] MEDS: HEPARIN 5000 UNIT/ML 1 ML VIAL SQ SCH ×2 (07:43→19:55)
[2023-04-22] MEDS: FERROUS SULFATE 325 MG TAB PO SCH (07:46)
[2023-04-22] MEDS: SERTRALINE HCL 50 MG TAB PO SCH (07:46)
[2023-04-22] MEDS: FOLIC ACID 1 MG TABLET PO SCH (07:46)
[2023-04-22] MEDS: Fluticasone/Salmeterol [Advair 250-50 Diskus] Blst.W.Dev IH SCH ×2 (07:46→20:03)
[2023-04-22] MEDS: NACHLORIDE 0.45% 1,000 ML with NA BICARB 8.4% 75 MEQ IV SCH ×4 (08:09→20:02)
[2023-04-22] MEDS ORDERED: Magnesium Sulfate 2gm IVPB 2 G/50 ML BAG IV ONE (10:00)
[2023-04-22] MEDS ORDERED: MAGNESIUM SULFATE 1 gm IVPB 1 GM/100 ML BAG IV ONE (10:00)
--- NOTE | 2023-04-22 17:06 | P.PN ---
Subjective Date of Service: 04/22/23 Primary Care Provider: Sadaf Chief Complaint: Hyperkalemia No acute events overnight. His electrolytes are improving. His renal function is improving. He reports some generalized weakness, but otherwise states that he feels relatively well. He endorses that he has had poor fluid intake over the last 2 months, which may have been contributing to his symptoms. He denies any chest pain, palpitations, or shortness of breath. Review of Systems 10-point ROS is otherwise unremarkable General: Weakness (generalized) Physical Examination - Vital Signs Temperature: 97.9 F Blood Pressure: 153/78 Pulse: 71 Respirations: 17 Pulse Ox (%): 96 Assessment And Plan - Plan - Physical Exam General: Alert, In no apparent distress, Oriented x3 HEENT: Atraumatic, Sclerae nonicteric Neck: JVD not distended Respiratory: Clear to auscultation bilaterally, Normal air movement Cardiovascular: No edema, Regular rate/rhythm, No murmurs Gastrointestinal: Soft, Non-distended, No tenderness, No rebound, No guarding, Other (ileostomy in mid-left abdomen with liquid, brown stool) Musculoskeletal: No clubbing Integumentary: No rashes Neurological: Normal speech, Normal affect # KDIGO Stage II Acute Kidney Injury with Hyperkalemia and Hypomagnesemia # Non-Anion Gap Metabolic Acidosis due to above # Localized Rectal Adenocarcinoma ([id number]) s/p resection with Diverting Loop Ileostomy (February 2023) s/p 3 doses of Capecitabine # Anemia of Chronic Kidney Disease - stable # 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 - Evaluation thus far: - EKG = borderline peaked T-waves - Creatinine = 2.24 -> 1.72 (creatinine was 1.03 in February 2023) - Urinalysis = trace protein - CT abdomen = "negative for a genitourinary calculus. Bilateral cystic renal masses are nonspecific. Most likely they represent cysts." - Renal ultrasound = "bilateral renal cysts. No hydronephrosis " - Management plan: - Consulted Nephrology and spoke with Dr. Davis - recommendations appreciated - S/P 1 amp bicarbonate, 45g kayexalate, insulin + dextrose, calcium gluconate, 1.5 L Normal Saline in ED - Serial electrolyte checks - Replace magnesium as needed - Started bicarbonate drip - Telemetry - Monitor creatinine and urine output - Renally dose medications # Chronic Obstructive Pulmonary Disease - No evidence of acute exacerbation. - Continue home fluticasone-salmeterol # Depressive Disorder - Continue home sertraline # Gastroesophageal Reflux Disease - Hold home esomeprazole given hypomagnesemia # Hypothyroidism - Continue home levothyroxine # Right Humerus Sclerotic Lesion (5 mm) - Chest x-ray = "no acute pulmonary abnormality seen. 5 millimeter sclerotic focus right humerus nonspecific. Follow-up x-ray right humerus recommended in 3 months to assess stability" - This finding is concerning for malignancy given his history - Ordered CT upper extremity requested = " 6 millimeter calcification abuts the medial aspect of proximal right humeral diaphysis. It likely is benign." # Moderate Superior Mesenteric Artery Stenosis # Mild Spinal Stenosis - no alarm symptoms - Noted on CT abdomen. If hemoglobin remains stable, plan to start aspirin. - Follow-up with PCP for further evaluation. # Tobacco Use Disorder Tobacco cessation counseling provided. # Moderate Alcohol Use Reports that he drinks 1 beer per day Given that he will be on dextrose containing fluids, will start thiamine Low likelihood of developing alcohol withdrawal syndrome with that amount of alcohol consumption, but will monitor and treat accordingly Rafael Whitmore M.D.
[2023-04-22 19:27] LABS: Hematocrit 22.5 % (39.6-49.0)
[2023-04-23] MEDS: LEVOTHYROXINE SOD 0.1 MG TAB PO SCH (05:32)
[2023-04-23 06:59] LABS: Hematocrit 20.3 % (39.6-49.0); MCV 79.8 fL (80-100); RBC Red Blood Cell Count 2.55 M/uL (4.33-5.43)
[2023-04-23 07:09] LABS: Magnesium 1.5 mg/dL (1.6-2.4); Phosphorus 2.4 mg/dL (2.5-4.9); Potassium 4.3 mEq/L (3.5-5.1)
[2023-04-23] MEDS: THIAMINE 200 MG/2 ML INJ IVP SCH (07:33)
[2023-04-23] MEDS: HEPARIN 5000 UNIT/ML 1 ML VIAL SQ SCH (07:34)
[2023-04-23] MEDS: Fluticasone/Salmeterol [Advair 250-50 Diskus] Blst.W.Dev IH SCH ×2 (07:34→21:00)
[2023-04-23] MEDS: FERROUS SULFATE 325 MG TAB PO SCH ×2 (07:34→16:23)
[2023-04-23] MEDS: SERTRALINE HCL 50 MG TAB PO SCH (07:34)
[2023-04-23] MEDS: FOLIC ACID 1 MG TABLET PO SCH (07:34)
[2023-04-23] MEDS: NACHLORIDE 0.45% 1,000 ML with NA BICARB 8.4% 75 MEQ IV SCH ×2 (08:05)
[2023-04-23] MEDS ORDERED: NA CHLORIDE 0.9% 250 ML IV SCH (09:00)
[2023-04-23] MEDS ORDERED: Magnesium Sulfate 2gm IVPB 2 G/50 ML BAG IV ONE (09:00)
--- NOTE | 2023-04-23 09:58 | P.PN ---
Date of Service: 04/23/23 Vital Signs Temp Pulse Resp BP Pulse Ox 98.5 F 70 16 152/70 H 99 04/23/23 04:00 04/23/23 04:00 04/23/23 04:00 04/23/23 04:00 04/23/23 04:00 Medications Ferrous Sulfate (Ferrous Sulfate 325 Mg Tab) 325 mg PO DAILY [facility] Last Admin: 04/23/23 07:34 Dose: 325 mg Folic Acid (Folic Acid 1 Mg Tablet) 1 mg PO DAILY [facility] Last Admin: 04/23/23 07:34 Dose: 1 mg Heparin Sodium (Porcine) (Heparin 5000 Unit/Ml 1 Ml Vial) 5,000 unit SQ Q12HR [facility] Last Admin: 04/23/23 07:34 Dose: Not Given Home Med (Fluticasone/Salmeterol [Advair 250-50 Diskus]) 2 puff IH BID [facility] Last Admin: 04/23/23 07:34 Dose: 2 puff Sodium Bicarbonate 75 meq/ (Sodium Chloride) 1,075 mls @ 100 mls/hr IV .[id number] [facility] Last Admin: 04/23/23 08:05 Dose: 1,075 mls Magnesium Sulfate (Magnesium Sulfate 2 Gm/50ml Ivpb (Premix)) 2 g in 50 mls @ 50 mls/hr IV 1X ONE Stop: 04/23/23 09:59 Last Admin: 04/23/23 07:34 Dose: 50 mls Sodium Chloride (Sodium Chloride) 250 mls @ 0 mls/hr IV .Q0M [facility] Levothyroxine Sodium (Levothyroxine Sod 0.1 Mg Tab) 0.1 mg PO DAILYAC [facility] Last Admin: 04/23/23 05:32 Dose: 0.1 mg Sertraline HCl (Sertraline Hcl 50 Mg Tab) 50 mg PO DAILY [facility] Last Admin: 04/23/23 07:34 Dose: 50 mg Sodium Chloride (Flush Normal Saline 10 Ml) 10 ml IV BID [facility] Last Admin: 04/23/23 07:35 Dose: 10 ml Thiamine HCl (Thiamine 200 Mg/2 Ml Inj) 100 mg IVP DAILY [facility] Last Admin: 04/23/23 07:33 Dose: 100 mg Assessment/ Plan: Nephrology No dyspnea No chest pain Feeling better No acute events overnight Vitals, medications, blood work and imaging reviewed in the chart. NAD. MMM. Cachectic. CTA. RRR. Abd soft. Ileostomy. No C/C/E. No rash. AAO. Normal speech. Stage II MAK in the setting of hypovolemia -No NSAIDs -Maintain adequate hydration Hypovolemic Hyponatremia -Start oral sodium bicarb TID Hyperkalemia, resolved NAG Metabolic Acidosis likely GI losses -Start oral bicarb TID Hypomagnesemia -Replete prn -Start SloMag BID Hyperuricemia -Monitor level Anemia in chronic illness, worse Iron Deficiency B12 Deficiency -PRBC prn -May need to recheck H&H today -Increase iron bid -Start B12 injections -Iron panel and B12 pending Case reviewed with Dr. Fitzgerald
[2023-04-23] MEDS ORDERED: CYANOCOBALAMIN 1000MCG/ML INJ IM SCH (10:30)
[2023-04-23] MEDS: MAGNESIUM CHLORIDE 64 MG TAB PO SCH ×2 (10:32→21:33)
[2023-04-23] MEDS: SODIUM BICARB 325 MG TAB PO SCH ×3 (10:35→21:33)
--- NOTE | 2023-04-23 16:22 | P.PN ---
Subjective Date of Service: 04/23/23 Primary Care Provider: Sadaf Chief Complaint: Hyperkalemia Patient has no new complaint. He states he feels fine. He has been tolerating his diet. Colostomy output is watery. Physical Examination - Vital Signs Temperature: 97.7 F Blood Pressure: 147/70 Pulse: 58 Respirations: 16 Pulse Ox (%): 98 Assessment And Plan - Plan Physical Exam General: Alert, In no apparent distress, Oriented x3 HEENT: Atraumatic, Sclerae nonicteric Neck: JVD not distended Respiratory: Clear to auscultation bilaterally, Normal air movement Cardiovascular: No edema, Regular rate/rhythm, No murmurs Gastrointestinal: Soft, Non-distended, No tenderness, No rebound, No guarding, ileostomy in mid-left abdomen. 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 - Evaluation thus far: - EKG = borderline peaked T-waves - Creatinine = 2.24 -> 1.72 (creatinine was 1.03 in February 2023) - Urinalysis = trace protein - CT abdomen = "negative for a genitourinary calculus. Bilateral cystic renal masses are nonspecific. Most likely they represent cysts." - Renal ultrasound = "bilateral renal cysts. No hydronephrosis " - Management plan: -Nephrology is following - S/P 1 amp bicarbonate, 45g kayexalate, insulin + dextrose, calcium gluconate, 1.5 L Normal Saline in ED for hyperkalemia - Replace magnesium as needed -Status post bicarb drip, transition to oral bicarb replacement -Serum creatinine continue to improve. - Renally dose medications -Monitor renal function. Chronic Obstructive Pulmonary Disease - No evidence of acute exacerbation. - Continue home fluticasone-salmeterol Depressive Disorder - Continue home sertraline Gastroesophageal Reflux Disease - Hold home esomeprazole given hypomagnesemia -Treat with Pepcid Hypothyroidism - Continue home levothyroxine Right Humerus Sclerotic Lesion (5 mm) - Chest x-ray = "no acute pulmonary abnormality seen. 5 millimeter sclerotic focus right humerus nonspecific. Follow-up x-ray right humerus recommended in 3 months to assess stability" - This finding is concerning for malignancy given his history - Ordered CT upper extremity requested = " 6 millimeter calcification abuts the medial aspect of proximal right humeral diaphysis- likely is benign." Moderate Superior Mesenteric Artery Stenosis Mild Spinal Stenosis - no alarm symptoms - Noted on CT abdomen. If hemoglobin remains stable, plan to start aspirin. - Follow-up with PCP for further evaluation. Tobacco Use Disorder Tobacco cessation counseling provided. Moderate Alcohol Use Alcohol cessation advised. Anemia Likely chronic and hemodilution. Transfuse 1 unit PRBC to keep hemoglobin greater than 7. Stop heparin subQ. Monitor H&H. DVT prophylaxis: SCD
--- NOTE | 2023-04-23 17:17 | EKG ---
Test Date: 2023-04-21 Test Time: 09:29:36 Hose Turner: ANTIONE MEASUREMENT RESULTS: Intervals: Rate: 74 NM: 174 QRSD: 144 QT: 386 QTc: 428 [place]: P: 86 NM: 174 QRS: -78 T: 99 INTERPRETIVE STATEMENTS: Normal sinus rhythm Left axis deviation Left ventricular hypertrophy with QRS widening and repolarization abnormality Abnormal ECG Compared to ECG 03/02/2023 19:43:16 No significant changes Electronically Signed On 04-23-23 17:13:45 CDT by Sanjeev David
[2023-04-23] MEDS ORDERED: MAGNESIUM CHLORIDE 64 MG TAB PO SCH (21:00)
[2023-04-24] MEDS: LEVOTHYROXINE SOD 0.1 MG TAB PO SCH (06:19)
[2023-04-24 06:41] LABS: Absolute Lymphocytes (CBC) 0.9 K/uL (0.7-4.9); Hematocrit 25.1 % (39.6-49.0); Lymphocytes % 16.9 % (15.3-44.8); MPV 7.6 fL (7.6-11.3)
[2023-04-24 06:53] LABS: Magnesium 1.9 mg/dL (1.6-2.4); Phosphorus 2.6 mg/dL (2.5-4.9); Potassium 4.7 mEq/L (3.5-5.1); Uric Acid 7.1 mg/dL (3.5-7.2)
--- NOTE | 2023-04-24 08:31 | P.DS ---
Admission Date: 04/21/23 Discharge Date: 04/24/23 Primary Care Provider: Sadaf Disposition: ROUTINE DISCHARGE Discharge Condition: FAIR Reason for Admission: Hyperkalemia Brief History of Present Illness: Mr. Harley Gonzalez is a 67 year old male who has a past medical history of localized rectal adenocarcinoma ([id number]) s/p resection with diverting loop ileostomy (February 2023) s/p 3 doses of capecitabine, chronic obstructive pulmonary disease, hypothyroidism, depressive disorder, and gastroesophageal reflux disease who presented to the [facility] Emergency Department after his PCP (Dr. Talavera) called him with abnormal labs (potassium of 6.8). He reported fatigue over the last few months since his colon surgery. He stated that he was advised to present to the Emergency Department for further evaluation. Upon presentation, his vital signs were stable. His laboratory studies were notable for a potassium of 6.3, a bicarbonate of 15, a BUN of 70, and a creatinine of 2.24. EKG was with borderline peaked T-waves. His chest x-ray revealed, "no acute pulmonary abnormality seen. 5 millimeter sclerotic focus right humerus nonspecific. Follow-up x-ray right humerus recommended in 3 months to assess stability." His CT abdomen revealed, "negative for a genitourinary calculus. Bilateral cystic renal masses are nonspecific. Most likely they represent cysts." In the Emergency Department, he was given 2 g magnesium sulfate, 1 amp bicarbonate, 45 g kayexalate, insulin + dextrose, famotidine, 1g calcium gluconate, and albuterol. He was admitted to the General Internal Medicine service for further evaluation. Hospital Course: Patient admitted to the medical floor and the following medical problems addressed: KDIGO Stage II Acute Kidney Injury with Hyperkalemia and Hypomagnesemia Non-Anion Gap Metabolic Acidosis. 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 - Evaluation: - EKG = borderline peaked T-waves - Creatinine = 2.24 -> 1.72 (creatinine was 1.03 in February 2023) - Urinalysis = trace protein - CT abdomen = "negative for a genitourinary calculus. Bilateral cystic renal masses are nonspecific. Most likely they represent cysts." - Renal ultrasound = "bilateral renal cysts. No hydronephrosis " - Management plan: -Nephrology consulted - S/P 1 amp bicarbonate, 45g kayexalate, insulin + dextrose, calcium gluconate, 1.5 L Normal Saline in ED for hyperkalemia - Replace magnesium as needed -Status post bicarb drip, transition to oral bicarb replacement -Serum creatinine improved, MAK resolved. Metabolic acidosis resolved with bicarb replacement. -Patient placed on oral magnesium. Chronic Obstructive Pulmonary Disease - No evidence of acute exacerbation. - Continued home fluticasone-salmeterol Depressive Disorder - Continued home sertraline Gastroesophageal Reflux Disease - Held home esomeprazole given hypomagnesemia -Omeprazole resumed on discharge. Hypothyroidism - Continued home levothyroxine Right Humerus Sclerotic Lesion (5 mm) - Chest x-ray = "no acute pulmonary abnormality seen. 5 millimeter sclerotic focus right humerus nonspecific. Follow-up x-ray right humerus recommended in 3 months to assess stability" - This finding is concerning for malignancy given his history - Ordered CT upper extremity requested = " 6 millimeter calcification abuts the medial aspect of proximal right humeral diaphysis- likely is benign." Moderate Superior Mesenteric Artery Stenosis Mild Spinal Stenosis - no alarm symptoms - Noted on CT abdomen. - Follow-up with PCP for further evaluation. Tobacco Use Disorder Tobacco cessation counseling provided. Moderate Alcohol Use Alcohol cessation advised. Anemia Likely chronic and hemodilution. Transfused 1 unit PRBC. Severe protein calorie malnutrition Patient is currently asymptomatic, he has been finishing his meals, he is ambulatory and deemed stable for discharge. Vital Signs/Physical Exam: Temp Pulse Resp BP Pulse Ox 97.7 F 62 17 142/65 H 97 04/24/23 04:00 04/24/23 04:00 04/24/23 04:00 04/24/23 04:00 04/24/23 04:00 General: Alert, In no apparent distress, Oriented x3, Cachectic HEENT: Mucous membr. moist/pink Neck: Supple, JVD not distended Respiratory: Clear to auscultation bilaterally, Normal air movement Cardiovascular: No edema, Regular rate/rhythm, Normal S1 S2 Gastrointestinal: Normal bowel sounds, Soft and benign, Non-distended, Other (Presence of ileostomy) Musculoskeletal: No swelling, No tenderness Integumentary: No rashes, No cyanosis Neurological: Normal strength at 5/5 x4 extr Laboratory Data at Discharge: WBC 5.20 thou/uL (4.3-10.9) 04/24/23 06:27 Hgb 8.4 g/dL (13.6-17.9) L D 04/24/23 06:27 Hct 25.1 % (39.6-49.0) L 04/24/23 06:27 Plt Count 184 thou/uL (152-406) 04/24/23 06:27 PT 10.2 SECONDS (9.5-12.5) 04/21/23 09:30 INR 0.93 04/21/23 09:30 Sodium 132 mEq/L (136-145) L 04/24/23 06:27 Potassium 4.7 mEq/L (3.5-5.1) 04/24/23 06:27 BUN 35 mg/dL (7-18) H 04/24/23 06:27 Creatinine 1.24 mg/dL (0.70-1.30) 04/24/23 06:27 Glucose 84 mg/dL (74-106) 04/24/23 06:27 Uric Acid 7.1 mg/dL (3.5-7.2) 04/24/23 06:27 Phosphorus 2.6 mg/dL (2.5-4.9) 04/24/23 06:27 Magnesium 1.9 mg/dL (1.6-2.4) 04/24/23 06:27 Total Bilirubin 0.1 mg/dL (0.2-1.0) L 04/22/23 03:14 AST 18 U/L (15-37) 04/22/23 03:14 ALT 35 U/L (16-61) 04/22/23 03:14 Alkaline Phosphatase 78 U/L (45-117) D 04/22/23 03:14 Lipase 64 U/L (13-75) 04/21/23 09:30 Home Medications: Esomeprazole Mag Trihydrate [Nexium] 20 mg PO DAILY 12/30/21 Levothyroxine Sodium 100 mcg PO DAILY 12/30/21 Sertraline HCl 50 mg PO DAILY 12/30/21 Fluticasone/Salmeterol [Advair 250-50 Diskus] 2 puff IN BID 12/19/22 Ferrous Sulfate 325 mg PO DAILY 04/21/23 Folic Acid 1 mg PO DAILY 04/21/23 Metoclopramide HCl [Reglan] 10 mg PO ACHS PRN 04/21/23 Mirtazapine [Remeron*] 15 mg PO BEDTIME 04/21/23 Magnesium Chloride [Slow-Mag*] 128 mg PO BID #120 tab 04/24/23 Sodium Bicarbonate 650 mg PO TID #90 tab 04/24/23 New Medications: Magnesium Chloride [Slow-Mag*] 128 mg PO BID #120 tab Sodium Bicarbonate 650 mg PO TID #90 tab Diet: Regular Activity: Ad myrna Followup: Freddy Talavera DO [Primary Care Provider] - 1-2 Weeks Time spent managing pt's care (in minutes): 37
[2023-04-24] MEDS: Fluticasone/Salmeterol [Advair 250-50 Diskus] Blst.W.Dev IH SCH (09:00)
[2023-04-24] MEDS: MAGNESIUM CHLORIDE 64 MG TAB PO SCH (09:28)
[2023-04-24] MEDS: SODIUM BICARB 325 MG TAB PO SCH (09:28)
[2023-04-24] MEDS: FOLIC ACID 1 MG TABLET PO SCH (09:28)
[2023-04-24] MEDS: FERROUS SULFATE 325 MG TAB PO SCH (09:28)
[2023-04-24] MEDS: THIAMINE 200 MG/2 ML INJ IVP SCH (09:29)
[2023-04-24] MEDS: SERTRALINE HCL 50 MG TAB PO SCH (09:29)
[2023-04-24 09:59] VITALS: BP 154/66; TEMP 97.4
[2023-04-24 10:19] VITALS: O2SAT 95
== END 2023-04-24 11:04 | disposition home or self-care (01) | DRG 683 ==
LOC: ER 08:58 → ERHOLD 11:49 → 4TH 13:48
PROVIDERS: ADMIT Internal Medicine; ATTEND Internal Medicine
PROC: 30233N1 Transfusion of Nonautologous Red Blood Cells into Peripheral Vein, Percutaneous Approach (ICD-10-PCS; principal; 2023-04-24)
DX: N17.9 Acute kidney failure, unspecified (principal); E87.1 Hypo-osmolality and hyponatremia; E87.20 Acidosis, unspecified; E87.5 Hyperkalemia; E03.9 Hypothyroidism, unspecified; F32.A Depression, unspecified; E83.42 Hypomagnesemia; K21.9 Gastro-esophageal reflux disease without esophagitis; N18.9 Chronic kidney disease, unspecified; D63.1 Anemia in chronic kidney disease; D50.9 Iron deficiency anemia, unspecified; D51.9 Vitamin B12 deficiency anemia, unspecified; I77.1 Stricture of artery; J44.9 Chronic obstructive pulmonary disease, unspecified; K57.10 Diverticulosis of small intestine without perforation or abscess without bleeding; F17.210 Nicotine dependence, cigarettes, uncomplicated; Z93.3 Colostomy status; Z88.5 Allergy status to narcotic agent; Z90.49 Acquired absence of other specified parts of digestive tract; Z28.310 Unvaccinated for COVID-19; Z85.048 Personal history of other malignant neoplasm of rectum, rectosigmoid junction, and anus; Z79.899 Other long term (current) drug therapy
CPT/HCPCS: 36415; 36430; 71045; 73200; 74176; 76377; 76770; 80048; 80053; 80076; 81001; 82607; 82728; 82947; 83540; 83690; 83735; 83880; 84100; 84132; 84466; 84484; 84550; 85014; 85018; 85025; 85027; 85610; 86850; 86870; 86880; 86900; 86901; 86902; 86905; 86920; 86922; 93005; 94640; 99285; J0612; J1644; J1815; J3411; J3420; J3475; J7030; J7040; J7050; J7613; J7644; P9016